=== PATIENT | female | born 1995 | race Caucasian/White ===

== ENCOUNTER 2021-05-30 11:41 | Outpatient (REF) | payer MEDICAID, SELFPAY ==
--- NOTE | ~2021-05-30 | XR_ITS ---
EXAMINATION: XR CHEST CLINICAL INFORMATION: Generalized hyperhidrosis. COMPARISON: None TECHNIQUE: 2 views of the chest were obtained. FINDINGS: No significant abnormality is noted involving the heart, lungs, mediastinum, bony thorax or soft tissues. XR/XR chest 2V IMPRESSION: No acute cardiopulmonary process.
== END 2021-05-30 11:42 | disposition home or self-care (01) ==
LOC: HO.XRAY 11:41
PROVIDERS: Absent Provider Registered Nurse Community Health; PCP Registered Nurse Community Health; Visit Provider Emergency Medicine
DX: R61 Generalized hyperhidrosis (principal)
CPT/HCPCS: 71046

== ENCOUNTER 2021-09-01 16:05 | Outpatient (REF) | payer MEDICAID, SELFPAY ==
--- NOTE | ~2021-09-01 | XR_ITS ---
EXAMINATION: XR CHEST CLINICAL INFORMATION: Cough COMPARISON: Previous chest x-ray May 2021 TECHNIQUE: 2 views of the chest were obtained. FINDINGS: No significant abnormality is noted involving the heart, lungs, mediastinum, bony thorax or soft tissues. XR/XR chest 2V IMPRESSION: Unremarkable examination.
== END 2021-09-01 16:06 | disposition home or self-care (01) ==
LOC: HO.XRAY 16:05
PROVIDERS: PCP Registered Nurse Community Health; Visit Provider Emergency Medicine
DX: R05.9 Cough, unspecified (principal)
CPT/HCPCS: 71046

== ENCOUNTER 2021-10-13 11:27 | Outpatient (REF) | payer MEDICAID, SELFPAY ==
[2021-10-14 09:42] LABS: BV Int Neg Control Negative (Negative); BV Int Pos Control Positive (Positive)
== END 2021-10-13 11:28 | disposition home or self-care (01) ==
LOC: HO.LAB 11:27
PROVIDERS: Visit Provider Advanced Practice Midwife
DX: Z01.411 Encounter for gynecological examination (general) (routine) with abnormal findings (principal); Z20.2 Contact with and (suspected) exposure to infections with a predominantly sexual mode of transmission; N91.2 Amenorrhea, unspecified; N89.8 Other specified noninflammatory disorders of vagina; Z79.3 Long term (current) use of hormonal contraceptives; Z87.42 Personal history of other diseases of the female genital tract
CPT/HCPCS: 87480; 87510; 87660; 88142

== ENCOUNTER 2021-11-07 14:37 | Outpatient (REF) | payer MEDICAID, SELFPAY ==
--- NOTE | ~2021-11-07 | US_ITS ---
EXAMINATION: US PELVIS CLINICAL INFORMATION: Amenorrhea. COMPARISON: None. TECHNIQUE: Ultrasound of the pelvis is performed using both transabdominal and transvaginal transducers along with Doppler. Transvaginal imaging is performed due to inadequate visualization transabdominally. FINDINGS: Uterus: The uterus is anteverted and measures 8.9 cm in length, 3.7 seen AP and 5.1 cm in transverse dimension. The double wall endometrial thickness is 0.4 cm. There is trace free fluid in the lower uterine segments/cervical canal. The uterus is smooth in contour and has normal myometrial echogenicity. No visible fibroid. Adnexa: Both ovaries are visualized. There is normal color flow to the adnexa. There is no ovarian torsion. There is no pelvic ascites or fluid collection. Right ovary measures 5.5 x 4.4 x 4.1 cm and volume 52.0 mL. There is anechoic cyst measuring 4.5 x 3.3 x 3.5 cm Left ovary measures 3.8 x 2.3 x 1.9 cm and volume 8.7 mL. US/US pelvic and transvaginal IMPRESSION: Simple cyst right ovary. Unremarkable left ovary. Trace fluid in the lower uterine segment/endocervical canal.
== END 2021-11-07 14:38 | disposition home or self-care (01) ==
LOC: HO.US 14:37
PROVIDERS: Visit Provider Advanced Practice Midwife
DX: N91.2 Amenorrhea, unspecified (principal); Z79.3 Long term (current) use of hormonal contraceptives; Z87.42 Personal history of other diseases of the female genital tract
CPT/HCPCS: 76830; 76856

== ENCOUNTER → 2021-12-22 13:27 | Outpatient (BNVA) | payer MEDICAID, SELFPAY | PROVIDERS: Visit Provider Advanced Practice Midwife | DX: Z13.89 Encounter for screening for other disorder (principal) ==

== ENCOUNTER 2022-11-28 16:22 | Outpatient (REF) | payer MEDICAID, SELFPAY ==
--- NOTE | ~2022-11-28 | XR_ITS ---
EXAMINATION: XR THORACIC SPINE CLINICAL INFORMATION: Reason for Exam CHRONIC LEFT SIDE THORACIC BACK PAIN COMPARISON: None TECHNIQUE: 3 views of the thoracic spine FINDINGS: Vertebral body heights are maintained. Alignment is maintained. Disc space heights are maintained. Paravertebral soft tissues are unremarkable. XR/XR thoracic spine 2V IMPRESSION: Disc space heights are maintained. .
== END 2022-11-28 16:23 | disposition home or self-care (01) ==
LOC: HO.XRAY 16:22
PROVIDERS: PCP Registered Nurse; Visit Provider Registered Nurse
DX: M54.6 Pain in thoracic spine (principal); G89.29 Other chronic pain
CPT/HCPCS: 72070

== ENCOUNTER → 2023-03-12 15:01 | Outpatient (REF) | payer MEDICAID, SELFPAY ==
--- NOTE | 2023-03-12 15:04 | CA_ITS ---
Transthoracic Echocardiogram Patient (Last, First, Middle): Jordyn Lara, Gender: Female Date of : 1995 Age: 27 Procedure Date: 03/12/2023 Procedure Type: Transthoracic Echocardiogram Location: OP Height: 162.56 cm Weight: 68.04 kg BSA: 1.73 m2 Heart Rate: bpm BP: 126 / 74 mmHg Rfid Systems Engineer: CHUCK Referring MD: Jaz Sams SOFT BOARDER Symptoms: I10 HTN Study Quality: Adequate ECG Rhythm: Sinus Conclusions: - The left ventricular systolic function is low normal. The visually estimated ejection fraction is between 50-55%. - No obvious valvular pathology seen on this study. - Recommend contrast study to assess apex/wall motion. Findings Left Ventricle Normal left ventricular cavity size. There is normal left ventricular wall thickness. The left ventricular systolic function is low normal. The visually estimated ejection fraction is between 50-55%. Diastolic function is normal for age. [place] not visualized well. Recommend contrast. Strain likely not accurate. Right Ventricle Normal right ventricular cavity size and systolic function. Atria Both atria are normal in size. Aortic Valve There is a normal trileaflet aortic valve. There is no aortic valve stenosis. There is no aortic valve regurgitation. Mitral Valve The mitral valve appears normal. There is no mitral valve regurgitation. There is no mitral valve stenosis. Pulmonic Valve The pulmonic valve is likely normal. Tricuspid Valve Normal tricuspid valve structure. There is trace tricuspid valve regurgitation. There is no evidence of pulmonary hypertension. Great Vessels The asc aorta is normal in size. Venous The inferior vena cava is normal in size and collapses greater than 50% with inspiration. Pericardium/Pleural There is no evidence of pericardial effusion. Prior Study Comparison No prior study available for comparison. Recommendations, Care & Conclusions No obvious valvular pathology seen on this study. Recommend contrast in the future to improve endocardial definition. Measurements 2D Linear Measurements IVSd: 0.70 0.6-0.9/0.6-1.0 cm LVIDd: 4.80 3.9-5.3/4.2-5.9 cm LVIDd Index: 2.77 2.4-3.2/2.2-3.1 cm/m2 LVIDs: 3.50 2.0-3.6 cm LVPWd: 0.80 0.7-1.1 cm LA Diam: 3.20 2.7-3.8/3.0-4.0 cm LAIDs Index: 1.85 1.5-2.3 cm/m2 LV Mass: 145.03 67-162/88-224 g LV Mass Index: 83.83 43-95/49-115 g/m2 LVOT Diam: 2.00 3.0+(-)1.3 cm 2D Systolic Function EF 4C: 63.50 >55% EF 2C: 60.00 >55% Mitral Valve MV Pk E: 0.61 MV PK A: 0.36 MV Decel Time: 333.00 E/A: 1.70 E'Lateral: 13.80 E'Medial: 8.38 E/E' Med: 7.30 E/E' Lat: 4.40 PHT: 98.00 MVA PHT: 2.24 Decel [place]: 1.84 Aortic Valve AoV Pk [place]: 1.23 AoV Mn [place]: 0.87 AoV VTI: 0.27 AoV Pk Grad: 6.00 Aov Mn Grad: 3.00 DARA Cont.VTI: 2.48 LVOT LVOT Pk [place]: 0.95 LVOT Mn [place]: 0.69 LVOT VTI: 0.22 LVOT Pk Grad: 4.00 LVOT Mn Grad: 2.00 LVOT Diam: 2.00 LVOT Area: 3.14 Diastolic Function MV Pk E: 0.61 MV Pk A: 0.36 E/A: 1.70 E'Medial: 8.38 E/E' Med: 7.30 E' Laterial: 13.80 E/E' Lat: 4.40 Right Ventricle TAPSE (mm): 21.60 TVS' [place]: 12.00 Tricuspid Valve TR Pk [place]: 2.00 TR Pk Grad: 16.00 RA Press: 3.00 RVSP: 19.00 Great Vessels Aorta Sinus of Valsalva: 3.40 2.0-3.[address] [place]: 2.00 1.7-3.4 cm Ao Asc: 2.60 2.1-3.4 cm Ao Arch: 2.40 Updated in Other Vendor System with Status of Final Martin Gonzalez MD electronically signed on 03/13/2023 10:40:18 AM with status of Final
== END ==
LOC: HO.CARD 15:01
PROVIDERS: PCP Registered Nurse; Visit Provider Registered Nurse
DX: I10 Essential (primary) hypertension (principal)
CPT/HCPCS: 93306

== ENCOUNTER → 2023-03-12 15:04 | Outpatient (BNV) | payer MEDICAID, SELFPAY | PROVIDERS: PCP Registered Nurse; Visit Provider Internal Medicine | DX: I10 Essential (primary) hypertension (principal) | CPT/HCPCS: 93306 ==

== ENCOUNTER → 2023-03-22 10:04 | Outpatient (REF) | payer MEDICAID, SELFPAY ==
--- NOTE | 2023-03-22 10:07 | CA_ITS ---
Transthoracic Echocardiogram Patient (Last, First, Middle): Jordyn Lara, Gender: Female Date of : 1995 Age: 27 Procedure Date: 03/22/2023 Procedure Type: Transthoracic Echocardiogram Location: OP Height: 162.56 cm Weight: 65.77 kg BSA: 1.71 m2 Heart Rate: bpm BP: 121 / 85 mmHg Capacitor Inspector: CHUCK Referring MD: Ken Ramires MD Symptoms: I10 HTN Study Quality: Adequate with contrast ECG Rhythm: Sinus Conclusions: - The left ventricular systolic function is low normal. The visually estimated ejection fraction is between 50-55%. Findings Left Ventricle Normal left ventricular cavity size. The left ventricular systolic function is low normal. The visually estimated ejection fraction is between 50-55%. There is no evidence of regional wall motion abnormalities. Prior Study Comparison No significant change compared to prior study dated: 03/12/2023. Measurements 2D Systolic Function EF 4C: 55.80 >55% EF 2C: 54.30 >55% EF BiP: 55.30 >55% Updated in Other Vendor System with Status of Final Martin Gonzalez MD electronically signed on 03/22/2023 11:11:55 AM with status of Final
== END ==
LOC: HO.CARD 10:04
PROVIDERS: PCP Registered Nurse; Visit Provider Emergency Medicine
DX: I10 Essential (primary) hypertension (principal)
CPT/HCPCS: 93308; Q9957

== ENCOUNTER → 2023-03-22 10:07 | Outpatient (BNV) | payer MEDICAID, SELFPAY | PROVIDERS: PCP Registered Nurse; Visit Provider Internal Medicine | DX: I10 Essential (primary) hypertension (principal) | CPT/HCPCS: 93308 ==

== ENCOUNTER 2023-03-28 10:33 | Outpatient (REF) | payer MEDICAID, SELFPAY ==
[2023-03-28 12:30] LABS: Alanine Aminotransferase 12 U/L (0-31); Alkaline Phosphatase 103 U/L (39-117); Anion Gap 9 (12-20); Aspartate Amino Transferase 41 U/L (5-31); Bilirubin Total 0.5 mg/dL (0.0-1.0); Blood Urea Nitrogen 7 mg/dL (9-16); Calcium 9.1 mg/dL (8.4-10.2); Carbon Dioxide 27 mmol/L (22-29); Chloride 106 mmol/L (96-108); Estimated Glomerular Filt Rate > 60; Glucose Random 65 mg/dL (60-115); Sodium 138 mmol/L (135-145); TSH reflex Free T4 0.65 uIU/mL (0.32-4.0); Total Protein 7.3 g/dL (6.5-8.0); Vitamin D 25-OH Total 68.7 ng/mL (>30)
== END 2023-03-28 10:34 | disposition home or self-care (01) ==
LOC: HO.HHCL 10:33
PROVIDERS: Visit Provider Registered Nurse
DX: I10 Essential (primary) hypertension (principal)
CPT/HCPCS: 36415; 80053; 82306; 84443

== ENCOUNTER 2023-04-03 11:51 | Outpatient (REF) | payer MEDICAID, SELFPAY ==
[2023-04-04 10:46] LABS: BV Int Neg Control Negative (Negative); BV Int Pos Control Positive (Positive)
== END 2023-04-03 11:52 | disposition home or self-care (01) ==
LOC: HO.CHCLNP 11:51
PROVIDERS: Visit Provider Advanced Practice Midwife
DX: N89.8 Other specified noninflammatory disorders of vagina (principal)
CPT/HCPCS: 87480; 87510; 87660

== ENCOUNTER 2023-04-10 10:16 | Outpatient (REF) | payer MEDICAID, SELFPAY ==
[2023-04-10 12:22] LABS: Alanine Aminotransferase 12 U/L (0-31); Albumin Level 4.1 g/dL (3.5-5.0); Alkaline Phosphatase 83 U/L (39-117); Aspartate Amino Transferase 45 U/L (5-31); Bilirubin Direct 0.3 mg/dL (0.0-0.5); Bilirubin Total 0.6 mg/dL (0.0-1.0); Total Protein 7.3 g/dL (6.5-8.0)
[2023-04-11 07:59] LABS: HBS Num1 9.37 mIU/mL (0-7.99); HBc Num1 0.15 S/CO (0.00-0.79); HBsAGNum1 0.41 S/CO (0.00-0.99); Hepatitis B Core Antibody Nonreactive (Nonreactive); Hepatitis B Surface Antigen Negative (Negative); ~HepC Num1 0.06 S/CO (0.00-0.79); ~Hepatitis A Antibody IgM Nonreactive (Nonreactive); ~Hepatitis C Antibody Nonreactive (Nonreactive)
[2023-04-11 09:25] LABS: HBS Num2 9.49 mIU/mL (0-7.99); HBS Num3 9.12 mIU/mL (0-7.99); ~Hepatitis B Surface Antibody GRAYZONE (Nonreactive)
== END 2023-04-10 10:17 | disposition home or self-care (01) ==
LOC: HO.HHCL 10:16
PROVIDERS: Visit Provider Registered Nurse
DX: R74.8 Abnormal levels of other serum enzymes (principal)
CPT/HCPCS: 36415; 80076; 82105; 86704; 86706; 86709; 86803; 87340

== ENCOUNTER 2023-04-20 10:18 | Outpatient (REF) | payer MEDICAID, SELFPAY ==
--- NOTE | ~2023-04-20 | US_ITS ---
EXAMINATION: US ABDOMEN COMPLETE CLINICAL INFORMATION: Elevated liver function tests. COMPARISON: None available. TECHNIQUE: Real-time imaging of the abdominal viscera. FINDINGS: PANCREAS: Normal. ABDOMINAL AORTA: The proximal, mid, and distal segments are normal in caliber. INFERIOR VENA CAVA: Visualized portions are normal. LIVER: Normal. The liver is normal in size. The liver contour is normal. Parenchymal echogenicity is normal. No focal hepatic lesion. There is no intrahepatic biliary duct dilatation seen. GALLBLADDER: Normal. The gallbladder is physiologically distended without evidence of stones, sludge, polyps, wall thickening or pericholecystic fluid. COMMON BILE DUCT: Normal in caliber measuring 0.3 cm in diameter. RIGHT KIDNEY: Normal. No hydronephrosis. No renal calculi or focal parenchymal lesions. The kidney measures 9.9 cm in maximum dimension. LEFT KIDNEY: Normal. No hydronephrosis. No renal calculi or focal parenchymal lesions. The kidney measures 9.0 cm in maximum dimension. SPLEEN: Normal. The spleen measures 8.8 cm in maximum dimension. FREE FLUID: None. US/US abdomen complete IMPRESSION: Unremarkable examination.
== END 2023-04-20 10:19 | disposition home or self-care (01) ==
LOC: HO.US 10:18
PROVIDERS: PCP Registered Nurse; Visit Provider Registered Nurse
DX: R74.8 Abnormal levels of other serum enzymes (principal)
CPT/HCPCS: 76700

== ENCOUNTER 2023-06-19 12:04 | Outpatient (REF) | payer MEDICAID, SELFPAY ==
[2023-06-19 14:24] LABS: Alanine Aminotransferase 11 U/L (0-31); Albumin Level 3.9 g/dL (3.5-5.0); Alkaline Phosphatase 80 U/L (39-117); Aspartate Amino Transferase 40 U/L (5-31); Bilirubin Direct 0.1 mg/dL (0.0-0.5); Bilirubin Total 0.4 mg/dL (0.0-1.0); Total Protein 6.9 g/dL (6.5-8.0)
[2023-06-19 14:42] LABS: Gamma Glutamyl Transpeptidase 11 U/L (7-33)
[2023-06-19 14:47] LABS: Ferritin 38 ng/mL (10-122)
[2023-06-20 04:10] LABS: HIV AB/AG Nonreactive (Nonreactive); HIV Num 1 0.05 S/CO (0.00-0.99)
[2023-06-21 12:52] LABS: Ceruloplasmin 27 mg/dL (18-53)
[2023-06-21 18:44] LABS: Transglutaminase Ab IgG <1.0 U/mL; Transglutaminase IgA <1.0 U/mL
[2023-06-24 10:38] LABS: Anti Nuclear Antibody Screen NEGATIVE (NEGATIVE)
[2023-06-25 11:20] LABS: Smooth Muscle Antibody <20 U (<20)
[2023-06-25 13:53] LABS: Mitochondrial Antibodies NEGATIVE (NEGATIVE)
[2023-06-26 08:53] LABS: Phosphatidylethanol 16:0-18:1 NEGATIVE; Phosphatidylethanol 16:0-18:2 NEGATIVE
== END 2023-06-19 12:05 | disposition home or self-care (01) ==
LOC: HO.LAB 12:04
PROVIDERS: PCP Registered Nurse; Visit Provider Nurse Practitioner
DX: R74.01 Elevation of levels of liver transaminase levels (principal)
CPT/HCPCS: 36415; 80076; 80321; 82390; 82728; 82977; 86015; 86038; 86364; 86381; 87389; 99212

== ENCOUNTER 2023-06-19 12:04 | Outpatient (AMB) | payer MEDICAID, SELFPAY ==
--- NOTE | 2023-06-19 12:08 | A.OFFVIS_ITS ---
Intake Vital Signs 06/19/23 12:11 Height 5 ft 4 in Weight 145 lb 15.136 oz BMI 25.0 BP 140/70 H Blood Pressure Location Rt brachial Position Sitting Pulse 80 Pulse Source Pulse Oximeter Intake Visit Reasons: Elevated LFTs Intake Note: Pt presents to the office today for elevated LFTs. Pt states she is feeling well. Pt states she still feels like she still has some stomach issues. Pt states that 1 or 2 drinks will upset her stomach. Pt denies any vomiting but states she does get nauseous and has diarrhea occasionally. Allergies No Known Allergies Allergy (Verified 06/19/23 12:13) HPI Elevated LFTs HPI Details 27-year-old female here for initial eval uation of elevated LFTs. She is referred by[facility]UDS[facility]ir[facility] of [facility]. PMX Hypertension Anxiety disorder Depression * SURGICAL HISTORY [place] teeth * ALLERGIES:NKDA * [employer] LABS: Laboratory Tests 03/28/23 03/28/23 04/10/23 10:38 10:38 10:19 Estimated GFR > 60 Total Bilirubin 0.6 Direct Bilirubin 0.3 AST 45 H ALT 12 Alkaline Phosphata se 83 Alpha Fetoprotein 2.0 TSH 0.65 Laboratory Tests 04/10/23 10:19 Hepatitis A IgM Ab Nonreactive Hep Bs Antigen Negative Hep Bs Antibody GRAYZONE Hep B Core Total A b Nonreactive Hepatitis C Ab (EI A) Nonreactive ULTRASOUND THE ABDOMEN 04/24/23 FINDINGS: PANCREAS: Normal. ABDOMINAL AORTA: The proximal, mid, and distal segments are normal in caliber. INFERIOR VENA CAVA: Visualized portions are normal. LIVER: Normal. The liver is normal in size. The liver contour is normal. Parenchymal echogenicity is normal. No focal hepatic lesion. There is no intrahepatic biliary duct dilatation seen. GALLBLADDER: Normal. The gallbladder is physiologically distended without evidence of stones, sludge, polyps, wall thickening or pericholecystic fluid. COMMON BILE DUCT: Normal in caliber measuring 0.3 cm in diameter. RIGHT KIDNEY: Normal. No hydronephrosis. No renal calculi or focal parenchymal lesions. The kidney measures 9.9 cm in maximum dimension. LEFT KIDNEY: Normal. No hydronephrosis. No renal calculi or focal parenchymal lesions. The kidney measures 9.0 cm in maximum dimension. SPLEEN: Normal. The spleen measures 8.8 cm in maximum dimension. FREE FLUID: None. US/US abdomen complete IMPRESSION: Unremarkable examination. TODAY'S VISIT She received partial Hep B vaccine at [facility] but never completed it. NO signs/sx of liver disease. She only drinks very occasionally. She only takes vitamins Vit D, zinc and iron. She takes Excedrin and tylenol for migraines. She does not take any to excess. No FHX of liver disease. She has been gaining weight recently. She had lost 20lbs in 05/2021 r/t anxiety causing nausea. She started drinking protein shakes and she has been gaining weight, but she also goes to the gym alot and she does not feel it is fat. HTN is in both parents, OA fo knees. The family is generally long lived. ROV 6 weeks. [facility] Social History (Updated 06/19/23 @ 12:14 by Yulissa Real MA) Household Members: Friend(s) Housing: Apartment Alcohol intake: current Alcohol intake frequency: holidays/special occasions only Patient Tobacco Use Status: Never used Tobacco Substance Use Type: Marijuana Gender identity: Female Female Reproductive History Menstrual Age of Menarche: 13 Review of Systems Const Denies fatigue, Denies fever(s), Denies night sweats, Denies poor appetite and Denies weight loss Eyes Details: glasses Reports requires corrective lenses ENT Reports Normal hearing present, Denies dental pain, Denies dysphagia, Denies hearing loss, Denies mouth pain, Denies odynophagia, Denies throat swelling, Denies tongue swelling and Reports other (Dentition adequate) Card Reports no additional complaints Resp Reports no additional complaints GI Denies abdominal pain, Denies melena, Denies bloating, Denies hematochezia, Denies constipation, Denies GI cramping, Denies dysphagia, Denies excessive flatus, Denies early satiety, Denies heartburn, Denies diarrhea, Denies nausea, Denies odynophagia, Denies vomiting and Denies hematemesis Skin/Breast Denies pruritus, Denies lesions, Denies rash and Denies jaundice Neuro Reports Normal hearing present and Denies Abnormal speech present Endo Denies fatigue Aller/Immun Denies throat swelling and Denies tongue swelling Physical Exam Vital Signs: Last Vital Signs Pulse 80 06/19/23 12:11 BP 140/70 H 06/19/23 12:11 BMI result Body Mass Index 25.0 Const General: cooperative, no acute distress, well developed and well groomed Nutritional Appearance: average body habitus and well nourished Orientation/consciousness: oriented to person, oriented to place and oriented to time Limitations: No language barrier HEENT Head: Yes normocephalic and Yes atraumatic Eyes General: appearance normal, both eyes and all related structures Pupils: Equal, round and reactive pupils present Neck Neck: Yes normal visual inspection and Yes no lymphadenopathy Thyroid: Thyroid normal Resp Effort & Inspection: normal respiratory effort and able to speak in complete sentences Auscultation: clear to auscultation bilaterally Cardio Rate: regular rate Rhythm: regular rhythm Heart sounds: Normal, physiologic split S2 sound present Peripheral pulses: radial pulses present and posterior tibial pulses present GI Inspection: No distended and No Abdominal panniculus present Palpation (GI): Soft to palpation, nontender, no guarding, not rigid and No hepatosplenomegaly present Percussion: Yes normal to percussion Auscultation: normal bowel sounds Rectal Exam - Female: deferred Skin General skin exam: no rashes or lesions noted, turgor normal, skin not dry, no jaundice, No spider nevi and no striae Rashes: no rashes Nails: normal Neuro General: oriented to person, oriented to place and oriented to time Cranial nerves: Yes Equal, round and reactive pupils present and Yes Normal hearing present Speech: No Abnormal speech present Extrem General: Yes normal to inspection, No clubbing, No cyanosis and No edema Psych Appearance: grossly normal and well kempt Mental Status: mental status grossly normal Speech and movement: Normal speech and movement present Affect: normal affect Attitude: cooperative Thought process: Normal thought process present and not confabulating Thought content: Normal thought content present Insight: Fair insight present (Psych) Judgement: Fair judgement present (Psych) Results Reviewed Results Reviewed: Laboratory Tests 03/28/23 03/28/23 04/10/23 10:38 10:38 10:19 Estimated GFR > 60 Total Bilirubin 0.6 Direct Bilirubin 0.3 AST 45 H ALT 12 Alkaline Phosphatase 83 Alpha Fetoprotein 2.0 TSH 0.65 Laboratory Tests 04/10/23 10:19 Hepatitis A IgM Ab Nonreactive Hep Bs Antigen Negative Hep Bs Antibody GRAYZONE Hep B Core Total Ab Nonreactive Hepatitis C Ab (EIA) Nonreactive ULTRASOUND THE ABDOMEN 04/24/23 FINDINGS: PANCREAS: Normal. ABDOMINAL AORTA: The proximal, mid, and distal segments are normal in caliber. INFERIOR VENA CAVA: Visualized portions are normal. LIVER: Normal. The liver is normal in size. The liver contour is normal. Parenchymal echogenicity is normal. No focal hepatic lesion. There is no intrahepatic biliary duct dilatation seen. GALLBLADDER: Normal. The gallbladder is physiologically distended without evidence of stones, sludge, polyps, wall thickening or pericholecystic fluid. COMMON BILE DUCT: Normal in caliber measuring 0.3 cm in diameter. RIGHT KIDNEY: Normal. No hydronephrosis. No renal calculi or focal parenchymal lesions. The kidney measures 9.9 cm in maximum dimension. LEFT KIDNEY: Normal. No hydronephrosis. No renal calculi or focal parenchymal lesions. The kidney measures 9.0 cm in maximum dimension. SPLEEN: Normal. The spleen measures 8.8 cm in maximum dimension. FREE FLUID: None. US/US abdomen complete IMPRESSION: Unremarkable examination. Assessment & Plan Assessment & Plan (1) Elevated liver transaminase level: Comment: BASELINE LABS 03/28/23 Estimated GFR > 60 Total Bilirubin 0.6 Direct Bilirubin 0.3 AST 45 H ALT 12 Alkaline Phosphatase 83 Alpha Fetoprotein 2.0 Hepatitis A IgM Ab Nonreactive Hep Bs Antigen Negative Hep Bs Antibody GRAYZONE Hep B Core Total Ab Nonreactive Hepatitis C Ab (EIA) Nonreactive CURRENT LABS ULTRASOUND THE ABDOMEN 04/24/23 FINDINGS: PANCREAS: Normal. ABDOMINAL AORTA: The proximal, mid, and distal segments are normal in caliber. INFERIOR VENA CAVA: Visualized portions are normal. LIVER: Normal. The liver is normal in size. The liver contour is normal. Parenchymal echogenicity is normal. No focal hepatic lesion. There is no intrahepatic biliary duct dilatation seen. GALLBLADDER: Normal. The gallbladder is physiologically distended without evidence of stones, sludge, polyps, wall thickening or pericholecystic fluid. COMMON BILE DUCT: Normal in caliber measuring 0.3 cm in diameter. RIGHT KIDNEY: Normal. No hydronephrosis. No renal calculi or focal parenchymal lesions. The kidney measures 9.9 cm in maximum dimension. LEFT KIDNEY: Normal. No hydronephrosis. No renal calculi or focal parenchymal lesions. The kidney measures 9.0 cm in maximum dimension. SPLEEN: Normal. The spleen measures 8.8 cm in maximum dimension. FREE FLUID: None. US/US abdomen complete IMPRESSION: Unremarkable examination Code(s): R74.01 - Elevation of levels of liver transaminase levels Plan: She received partial Hep B vaccine at [facility] but never completed it. NO signs/sx of liver disease. She only drinks very occasionally. She only takes vitamins Vit D, zinc and iron. She takes Excedrin and tylenol for migraines. She does not take any to excess. No FHX of liver disease. She has been gaining weight recently. She had lost 20lbs in 05/2021 r/t anxiety causing nausea. She started drinking protein shakes and she has been gaining weight, but she also goes to the gym alot and she does not feel it is fat. HTN is in both parents, OA fo knees. The family is generally long lived. ROV 6 weeks. Orders: Orders Gamma Glutamyl Transpeptidase 06/19/23 R74.01 - Elevation of levels of liver transaminase levels Mitochondrial Antibody 06/19/23 R74.01 - Elevation of levels of liver transaminase levels MALU Reflex Titer and Pattern 06/19/23 R74.01 - Elevation of levels of liver transaminase levels Transglutaminase Ab IgG 06/19/23 R74.01 - Elevation of levels of liver transaminase levels HIV Ab/Ag 06/19/23 R74.01 - Elevation of levels of liver transaminase levels Ferritin 06/19/23 R74.01 - Elevation of levels of liver transaminase levels Phosphatidylethanol, Blood 06/19/23 R74.01 - Elevation of levels of liver transaminase levels Smooth Muscle Antibody 06/19/23 R74.01 - Elevation of levels of liver transaminase levels Transglutaminase IgA 06/19/23 R74.01 - Elevation of levels of liver transaminase levels Ceruloplasmin 06/19/23 R74.01 - Elevation of levels of liver transaminase levels Liver Panel 06/19/23 R74.01 - Elevation of levels of liver transaminase levels Coding Level of Care Code New Pt Level 3 (07032) Diagnoses Elevated liver transaminase level R74.
[2023-06-19 12:11] VITALS: BP 140/70; PULSE 80; BMI 25.0
== END 2023-06-19 13:06 | disposition home or self-care (01) ==
PROVIDERS: PCP Registered Nurse; Visit Provider Nurse Practitioner
DX: R74.01 Elevation of levels of liver transaminase levels (principal)
CPT/HCPCS: 99203

== ENCOUNTER 2023-07-31 12:37 | Outpatient (AMB) | payer MEDICAID, SELFPAY ==
--- NOTE | 2023-07-31 12:41 | MHC.OFFVIS ---
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 ABDOMINAL AORTA: The proximal, mid, and distal segments are normal in caliber. INFERIOR VENA CAVA: Visualized portions are normal. LIVER: Normal. The liver is normal in size. The liver contour is normal. Parenchymal echogenicity is normal. No focal hepatic lesion. There is no intrahepatic biliary duct dilatation seen. GALLBLADDER: Normal. The gallbladder is physiologically distended without evidence of stones, sludge, polyps, wall thickening or pericholecystic fluid. COMMON BILE DUCT: Normal in caliber measuring 0.3 cm in diameter. RIGHT KIDNEY: Normal. No hydronephrosis. No renal calculi or focal parenchymal lesions. The kidney measures 9.9 cm in maximum dimension. LEFT KIDNEY: Normal. No hydronephrosis. No renal calculi or focal parenchymal lesions. The kidney measures 9.0 cm in maximum dimension. SPLEEN: Normal. The spleen measures 8.8 cm in maximum dimension. FREE FLUID: None. US/US abdomen complete IMPRESSION: Unremarkable examination Code(s): R74.01 - Elevation of levels of liver transaminase levels Plan: She received partial Hep B vaccine at [facility] but never completed it. NO signs/sx of liver disease. She only drinks very occasionally. She only takes vitamins Vit D, zinc and iron. She takes Excedrin and tylenol for migraines. She does not take any to excess. No FHX of liver disease. She has been gaining weight recently. She had lost 20lbs in 05/2021 r/t anxiety causing nausea. She started drinking protein shakes and she has been gaining weight, but she also goes to the gym alot and she does not feel it is fat. HTN is in both parents, OA fo knees. The family is generally long lived. ROV 6 weeks. Orders: Orders Gamma Glutamyl Tra nspeptidase 06/19/23 R74.01 - Elevation of levels of live r transaminase lev els Mitochondrial Anti body 06/19/23 R74.01 - Elevation of levels of live r transaminase lev els MALU Reflex Titer a nd Pattern 06/19/23 R74.01 - Elevation of levels of live r transaminase lev els Transglutaminase A b IgG 06/19/23 R74.01 - Elevation of levels of live r transaminase lev els HIV Ab/Ag 06/19/23 R74.01 - Elevation of levels of live r transaminase lev els Ferritin 06/19/23 R74.01 - Elevation of levels of live r transaminase lev els Phosphatidylethano l, Blood 06/19/23 R74.01 - Elevation of levels of live r transaminase lev els Smooth Muscle Anti body 06/19/23 R74.01 - Elevation of levels of live r transaminase lev els Transglutaminase I gA 06/19/23 R74.01 - Elevation of levels of live r transaminase lev els Ceruloplasmin 06/19/23 R74.01 - Elevation of levels of live r transaminase lev els Liver Panel 06/19/23 R74.01 - Elevation of levels of live r transaminase lev els Labs: Laboratory Tests 06/19/23 13:36 Ferritin 38 Total Bilirubin 0.4 Direct Bilirubin 0.1 GGT 11 AST 40 H ALT 11 Alkaline Phosphata se 80 Ceruloplasmin 27 MALU Screen NEGATIVE Anti-Mitochondrial Ab NEGATIVE Anti-Smooth Muscle Ab <20 Tiss Transglutamin IgG <1.0 Tiss Transglutamin IgA <1.0 PEth 16:0/18.1 (PO PEth) NEGATIVE PEth 16:0/18.2 (PL PEth) NEGATIVE HIV 1&2 Ab/P24 Ag 4thGn Nonreactive TODAY'S VISIT She continues to have no signs or symptoms of liver disease. All of her testing seems to indicate that there is not any inflammation a problem with the liver including the GGT she certainly does not have autoimmune liver disease, she does not have iron overload, she does not drink alcohol, the only possible driving factor could be Tylenol use. I do educate her that it is not just about taking more than 8 Tylenol in a day but taking more than 2 Tylenol in any 6 [address] sometimes can drive AST elevations. It is also entirely possible that she simply runs higher than other people on the aguilar curve. The only other complaint she has is polyuria polydipsia and that her feet swell when she stands for long periods of time. She wants to know if she has been tested for diabetes. A random glucose on her latest Chem panel was quite normal at 67 but I defer this question to her primary care provider since polyuria polydipsia can be a symptom for great many things and would require a larger workup then I can provide as specialty clinician. However, diabetes does not seem likely in the differential diagnosis at this time. Return office visit in 6 months and at that time will repeat her liver enzymes and see how she is trending. [facility] Social History Household Members: Friend(s) Housing: Apartment Alcohol intake: current Alcohol intake frequency: holidays/special occasions only Patient Tobacco Use Status: Never used Tobacco Substance Use Type: Marijuana Gender identity: Female Female Reproductive History Menstrual Age of Menarche: 13 Review of Systems Const Denies fatigue, Denies fever(s), Denies night sweats, Denies poor appetite and Denies weight loss Eyes Details: glasses ENT Reports Normal hearing present, Denies dental pain, Denies dysphagia, Denies hearing loss, Denies mouth pain, Denies odynophagia, Denies throat swelling, Denies tongue swelling and Reports other (Dentition adequate) Card Reports no additional complaints Resp Reports no additional complaints GI Denies abdominal pain, Denies melena, Denies bloating, Denies hematochezia, Denies constipation, Denies GI cramping, Denies dysphagia, Denies excessive flatus, Denies early satiety, Denies heartburn, Denies diarrhea, Denies nausea, Denies odynophagia, Denies vomiting and Denies hematemesis Skin/Breast Denies pruritus, Denies lesions, Denies rash and Denies jaundice Neuro Reports Normal hearing present and Denies Abnormal speech present Endo Denies fatigue Aller/Immun Denies throat swelling and Denies tongue swelling Physical Exam Vital Signs: Last Vital Signs Pulse 52 07/31/23 12:42 BP 121/65 07/31/23 12:42 BMI result Body Mass Index 25.7 Const General: cooperative, no acute distress, well developed and well groomed Nutritional Appearance: average body habitus and well nourished Orientation/consciousness: oriented to person, oriented to place and oriented to time Limitations: language barrier HEENT Head: Yes normocephalic and Yes atraumatic Eyes General: appearance normal, both eyes and all related structures Pupils: Equal, round and reactive pupils present Neck Neck: Yes normal visual inspection and Yes no lymphadenopathy Thyroid: Thyroid normal Resp Effort & Inspection: normal respiratory effort and able to speak in complete sentences Auscultation: clear to auscultation bilaterally Cardio Rate: regular rate Rhythm: regular rhythm Heart sounds: Normal, physiologic split S2 sound present Peripheral pulses: radial pulses present and posterior tibial pulses present GI Inspection: No distended and No Abdominal panniculus present Palpation (GI): Soft to palpation, nontender, no guarding, not rigid and No hepatosplenomegaly present Percussion: Yes normal to percussion Auscultation: normal bowel sounds Rectal Exam - Female: deferred Skin General skin exam: no rashes or lesions noted, turgor normal, skin not dry, no jaundice, No spider nevi and no striae Rashes: no rashes Nails: normal Neuro General: oriented to person, oriented to place and oriented to time Cranial nerves: Yes Equal, round and reactive pupils present and Yes Normal hearing present Speech: No Abnormal speech present Extrem General: Yes normal to inspection, No clubbing, No cyanosis and No edema Psych Appearance: grossly normal and well kempt Mental Status: mental status grossly normal Speech and movement: Normal speech and movement present Affect: normal affect Attitude: cooperative Thought process: Normal thought process present and not confabulating Thought content: Normal thought content present Insight: Fair insight present (Psych) Judgement: Fair judgement present (Psych) Assessment & Plan Assessment & Plan (1) Elevated liver transaminase level: Comment: BASELINE LABS 03/28/23 Estimated GFR > 60 Total Bilirubin 0.6 Direct Bilirubin 0.3 AST 45 H ALT 12 Alkaline Phosphatase 83 Alpha Fetoprotein 2.0 Hepatitis A IgM Ab Nonreactive Hep Bs Antigen Negative Hep Bs Antibody GRAYZONE Hep B Core Total Ab Nonreactive Hepatitis C Ab (EIA) Nonreactive Ferritin 38 Ceruloplasmin 27 MALU Screen NEGATIVE Anti-Mitochondrial Ab NEGATIVE Anti-Smooth Muscle Ab <20 Tiss Transglutamin IgG <1.0 Tiss Transglutamin IgA <1.0 PEth 16:0/18.1 (POPEth) NEGATIVE PEth 16:0/18.2 (PLPEth) NEGATIVE HIV 1&2 Ab/P24 Ag 4thGn Nonreactive CURRENT LABS 06/19/23 13:36 Ferritin 38 Total Bilirubin 0.4 Direct Bilirubin 0.1 GGT 11 AST 40 H ALT 11 Alkaline Phosphatase 80 Ceruloplasmin 27 MALU Screen NEGATIVE Anti-Mitochondrial Ab NEGATIVE Anti-Smooth Muscle Ab <20 Tiss Transglutamin IgG <1.0 Tiss Transglutamin IgA <1.0 PEth 16:0/18.1 (POPEth) NEGATIVE PEth 16:0/18.2 (PLPEth) NEGATIVE HIV 1&2 Ab/P24 Ag 4thGn Nonreactive Laboratory Tests 06/19/23 13:36 Ferritin 38 Total Bilirubin 0.4 Direct Bilirubin 0.1 GGT 11 AST 40 H ALT 11 Alkaline Phosphatase 80 Ceruloplasmin 27 MALU Screen NEGATIVE Anti-Mitochondrial Ab NEGATIVE Anti-Smooth Muscle Ab <20 Tiss Transglutamin IgG <1.0 Tiss Transglutamin IgA <1.0 PEth 16:0/18.1 (POPEth) NEGATIVE PEth 16:0/18.2 (PLPEth) NEGATIVE HIV 1&2 Ab/P24 Ag 4thGn Nonreactive ULTRASOUND THE ABDOMEN 04/24/23 FINDINGS: PANCREAS: Normal. ABDOMINAL AORTA: The proximal, mid, and distal segments are normal in caliber. INFERIOR VENA CAVA: Visualized portions are normal. LIVER: Normal. The liver is normal in size. The liver contour is normal. Parenchymal echogenicity is normal. No focal hepatic lesion. There is no intrahepatic biliary duct dilatation seen. GALLBLADDER: Normal. The gallbladder is physiologically distended without evidence of stones, sludge, polyps, wall thickening or pericholecystic fluid. COMMON BILE DUCT: Normal in caliber measuring 0.3 cm in diameter. RIGHT KIDNEY: Normal. No hydronephrosis. No renal calculi or focal parenchymal lesions. The kidney measures 9.9 cm in maximum dimension. LEFT KIDNEY: Normal. No hydronephrosis. No renal calculi or focal parenchymal lesions. The kidney measures 9.0 cm in maximum dimension. SPLEEN: Normal. The spleen measures 8.8 cm in maximum dimension. FREE FLUID: None. US/US abdomen complete IMPRESSION: Unremarkable examination Code(s): R74.01 - Elevation of levels of liver transaminase levels Plan She continues to have no signs or symptoms of liver disease. All of her testing seems to indicate that there is not any inflammation a problem with the liver including the GGT she certainly does not have autoimmune liver disease, she does not have iron overload, she does not drink alcohol, the only possible driving factor could be Tylenol use. I do educate her that it is not just about taking more than 8 Tylenol in a day but taking more than 2 Tylenol in any 6 hour[address] That sometimes can drive AST elevations. It is also entirely possible that she simply runs higher than other people on the aguilar curve. The only other complaint she has is polyuria polydipsia and that her feet swell when she stands for long periods of time. She wants to know if she has been tested for diabetes. A random glucose on her latest Chem panel was quite normal at 67 but I defer this question to her primary care provider since polyuria polydipsia can be a symptom for great many things and would require a larger workup then I can provide as specialty clinician. However, diabetes does not seem likely in the differential diagnosis at this time. Return office visit in 6 months and at that time will repeat her liver enzymes and see how she is trending. Coding Level of Care Code Est Pt Level 3 (57335) Diagnoses Elevated liver transaminase level R74.01
[2023-07-31 12:42] VITALS: BP 121/65; PULSE 52; BMI 25.7
== END 2023-07-31 13:18 | disposition home or self-care (01) ==
PROVIDERS: PCP Registered Nurse; Visit Provider Nurse Practitioner
DX: R74.01 Elevation of levels of liver transaminase levels (principal)
CPT/HCPCS: 99213

== ENCOUNTER → 2023-07-31 12:37 | Outpatient (BNVA) | payer MEDICAID, SELFPAY | PROVIDERS: PCP Registered Nurse; Visit Provider Nurse Practitioner | DX: R74.01 Elevation of levels of liver transaminase levels (principal) | CPT/HCPCS: 99212 ==

== ENCOUNTER 2023-11-05 10:05 | Outpatient (REF) | payer MEDICAID, SELFPAY ==
[2023-11-05 12:53] LABS: TSH reflex Free T4 0.73 uIU/mL (0.32-4.0)
[2023-11-06 11:56] LABS: BV Int Neg Control Negative (Negative); BV Int Pos Control Positive (Positive)
== END 2023-11-05 10:06 | disposition home or self-care (01) ==
LOC: HO.HHCL 10:05
PROVIDERS: Visit Provider Advanced Practice Midwife
DX: Z01.419 Encounter for gynecological examination (general) (routine) without abnormal findings (principal); N93.9 Abnormal uterine and vaginal bleeding, unspecified; N89.8 Other specified noninflammatory disorders of vagina
CPT/HCPCS: 36415; 84443; 87480; 87510; 87660; 88142

== ENCOUNTER 2023-11-23 11:36 | Outpatient (REF) | payer MEDICAID, SELFPAY ==
--- NOTE | ~2023-11-23 | US_ITS ---
EXAMINATION: US PELVIS CLINICAL INFORMATION: 28-year-old female with history of AUB. LMP approximately one month ago.. COMPARISON: Pelvic ultrasound from 11/07/2021. TECHNIQUE: Ultrasound of the pelvis is performed using both transabdominal and transvaginal transducers along with Doppler. Transvaginal imaging is performed due to inadequate visualization transabdominally. FINDINGS: Uterus: The anteflexed, anteverted uterus measures 8.3 x 3.5 x 4.1 cm (cervix to fundus x AP x transverse dimensions). The myometrial echotexture is normal. The cervix is approximately 3 cm in length. 0.6 cm nabothian cyst of the cervix. The endometrium has normal echotexture and measures up to 1 cm AP. No endometrial polyp or fluid. Adnexa: The ovaries are in the normal size range for the patient age and they both contain normal-sized follicles. The right ovary is 3.2 x 2.5 x 2.6 cm and left ovary 4.7 x 2.8 x 2 cm. No evidence of ovarian mass or torsion. Small physiologic amount of simple appearing free fluid is present in the posterior cul-de-sac. US/US pelvic and transvaginal IMPRESSION: * The uterus and ovaries are sonographically normal. * Small amount of simple appearing free fluid is present in the pelvic cul-de-sac.
== END 2023-11-23 11:37 | disposition home or self-care (01) ==
LOC: HO.US 11:36
PROVIDERS: PCP Registered Nurse; Visit Provider Advanced Practice Midwife
DX: N93.9 Abnormal uterine and vaginal bleeding, unspecified (principal)
CPT/HCPCS: 76830; 76856

== ENCOUNTER 2023-12-11 13:31 | Outpatient (REF) | payer MEDICAID, SELFPAY ==
[2023-12-12 10:09] LABS: RPR Rapid Plasma Reagin NON-REACTIVE (NON-REACTIVE)
[2023-12-12 18:33] LABS: C. trachomatis RNA TMA NOT DETECTED (NOT DETECTED); Candida glabrata RNA NOT DETECTED (NOT DETECTED); Candida species RNA DETECTED (NOT DETECTED); N. gonorrhoeae RNA TMA NOT DETECTED (NOT DETECTED); Trichomonas vaginalis RNA NOT DETECTED (NOT DETECTED)
[2023-12-15 05:39] LABS: HIV RNA PCR Qn Copies Not Detected Copies/mL; HIV RNA PCR Qn Log Copies Not Detected Log cps/mL
== END 2023-12-11 13:32 | disposition home or self-care (01) ==
LOC: HO.HHCL 13:31
PROVIDERS: Visit Provider Nurse Practitioner Family
DX: B37.9 Candidiasis, unspecified (principal); Z11.3 Encounter for screening for infections with a predominantly sexual mode of transmission
CPT/HCPCS: 36415; 81513; 86592; 87481; 87491; 87536; 87591; 87661; 87900

== ENCOUNTER 2023-12-13 17:37 | Outpatient (REF) | payer MEDICAID, SELFPAY ==
[2023-12-14 12:33] LABS: C. trachomatis RNA TMA NOT DETECTED (NOT DETECTED); Candida glabrata RNA NOT DETECTED (NOT DETECTED); Candida species RNA NOT DETECTED (NOT DETECTED); N. gonorrhoeae RNA TMA NOT DETECTED (NOT DETECTED); Trichomonas vaginalis RNA NOT DETECTED (NOT DETECTED)
== END 2023-12-13 17:38 | disposition home or self-care (01) ==
LOC: HO.HHCLNP 17:37
PROVIDERS: Visit Provider Student in an Organized Health Care Education/Training Program
DX: B37.9 Candidiasis, unspecified (principal)
CPT/HCPCS: 36415; 81513; 87481; 87491; 87591; 87661

== ENCOUNTER 2024-01-01 19:30 | Outpatient (REF) | payer MEDICAID, SELFPAY ==
[2024-01-02 09:18] LABS: CT PCR NOT DETECTED (Not Detect.); NG PCR NOT DETECTED (Not Detect.)
[2024-01-02 09:20] LABS: Bacterial Vaginosis PCR POSITIVE (Negative); Candida Group PCR DETECTED (Not Detect); Candida glab krusei PCR NOT DETECTED (Not Detect); Trichomonas vaginalis PCR NOT DETECTED (Not Detect)
== END 2024-01-01 19:31 | disposition home or self-care (01) ==
LOC: HO.HHCLNP 19:30
PROVIDERS: Visit Provider Internal Medicine
DX: N89.8 Other specified noninflammatory disorders of vagina (principal); R39.9 Unspecified symptoms and signs involving the genitourinary system
CPT/HCPCS: 0352U; 0353U; 87086

== ENCOUNTER 2024-01-22 19:17 | Outpatient (REF) | payer MEDICAID, SELFPAY ==
[2024-01-23 03:42] LABS: CT PCR NOT DETECTED (Not Detect.); NG PCR NOT DETECTED (Not Detect.)
[2024-01-23 10:57] LABS: Bacterial Vaginosis PCR POSITIVE (Negative); Candida Group PCR DETECTED (Not Detect); Candida glab krusei PCR NOT DETECTED (Not Detect); Trichomonas vaginalis PCR NOT DETECTED (Not Detect)
== END 2024-01-22 19:18 | disposition home or self-care (01) ==
LOC: HO.HHCLNP 19:17
PROVIDERS: Visit Provider Internal Medicine
DX: N76.1 Subacute and chronic vaginitis (principal)
CPT/HCPCS: 0352U; 0353U

== ENCOUNTER 2024-01-30 13:31 | Outpatient (AMB) | payer MEDICAID, SELFPAY ==
[2024-01-30 13:34] VITALS: BP 126/76; PULSE 69; BMI 24.8
--- NOTE | 2024-01-30 13:34 | A.OFFVIS_ITS ---
Vital Signs 01/30/24 13:34 Height 5 ft 3 in Weight 140 lb 3.424 oz BMI 24.8 BP 126/76 Blood Pressure Location Lt brachial Position Sitting Pulse 69 Intake Visit Reasons: 6 month follow up Intake Note: Jordyn returns to in office visit today in 6 months follow up of LFTs. CC: Patient reports doing well and denies having any GI concerns today. Salon Manager Required: No Accompanied by: Self / Same As Patient Allergies No Known Allergies Allergy (Verified 01/30/24 13:35) HPI HPI 6 month follow up: Details: Assessment & Plan (1) Elevated liver transaminase level: Comment: BASELINE LABS 03/28/23 Estimated GFR > 60 Total Bilirubin 0.6 Direct Bilirubin 0.3 AST 45 H ALT 12 Alkaline Phosphatase 83 Alpha Fetoprotein 2.0 Hepatitis A IgM Ab Nonreactive Hep Bs Antigen Negative Hep Bs Antibody GRAYZONE Hep B Core Total Ab Nonreactive Hepatitis C Ab (EIA) Nonreactive Ferritin 38 Ceruloplasmin 27 MALU Screen NEGATIVE Anti-Mitochondrial Ab NEGATIVE Anti-Smooth Muscle Ab <20 Tiss Transglutamin IgG <1.0 Tiss Transglutamin IgA <1.0 PEth 16:0/18.1 (POPEth) NEGATIVE PEth 16:0/18.2 (PLPEth) NEGATIVE HIV 1&2 Ab/P24 Ag 4thGn Nonreactive CURRENT LABS 06/19/23 13:36 Ferritin 38 Total Bilirubin 0.4 Direct Bilirubin 0.1 GGT 11 AST 40 H ALT 11 Alkaline Phosphatase 80 Ceruloplasmin 27 MALU Screen NEGATIVE Anti-Mitochondrial Ab NEGATIVE Anti-Smooth Muscle Ab <20 Tiss Transglutamin IgG <1.0 Tiss Transglutamin IgA <1.0 PEth 16:0/18.1 (POPEth) NEGATIVE PEth 16:0/18.2 (PLPEth) NEGATIVE HIV 1&2 Ab/P24 Ag 4thGn Nonreactive Laboratory Tests 06/19/23 13:36 Ferritin 38 Total Bilirubin 0.4 Direct Bilirubin 0.1 GGT 11 AST 40 H ALT 11 Alkaline Phosphatase 80 Ceruloplasmin 27 MALU Screen NEGATIVE Anti-Mitochondrial Ab NEGATIVE Anti-Smooth Muscle Ab <20 Tiss Transglutamin IgG <1.0 Tiss Transglutamin IgA <1.0 PEth 16:0/18.1 (POPEth) NEGATIVE PEth 16:0/18.2 (PLPEth) NEGATIVE HIV 1&2 Ab/P24 Ag 4thGn Nonreactive ULTRASOUND THE ABDOMEN 04/24/23 FINDINGS: PANCREAS: Normal. ABDOMINAL AORTA: The proximal, mid, and distal segments are normal in caliber. INFERIOR VENA CAVA: Visualized portions are normal. LIVER: Normal. The liver is normal in size. The liver contour is normal. Parenchymal echogenicity is normal. No focal hepatic lesion. There is no intrahepatic biliary duct dilatation seen. GALLBLADDER: Normal. The gallbladder is physiologically distended without evidence of stones, sludge, polyps, wall thickening or pericholecystic fluid. COMMON BILE DUCT: Normal in caliber measuring 0.3 cm in diameter. RIGHT KIDNEY: Normal. No hydronephrosis. No renal calculi or focal parenchymal lesions. The kidney measures 9.9 cm in maximum dimension. LEFT KIDNEY: Normal. No hydronephrosis. No renal calculi or focal parenchymal lesions. The kidney measures 9.0 cm in maximum dimension. SPLEEN: Normal. The spleen measures 8.8 cm in maximum dimension. FREE FLUID: None. US/US abdomen complete IMPRESSION: Unremarkable examination Code(s): R74.01 - Elevation of levels of liver transaminase levels Plan She continues to have no signs or symptoms of liver disease. All of her testing seems to indicate that there is not any inflammation a problem with the liver including the GGT she certainly does not have autoimmune liver disease, she does not have iron overload, she does not drink alcohol, the only possible driving factor could be Tylenol use. I do educate her that it is not just about taking more than 8 Tylenol in a day but taking more than 2 Tylenol in any [address] can drive AST elevations. It is also entirely possible that she s imply runs higher than other people on the aguilar curve. The only other complaint she has is polyuria polydipsia and that her feet swell when she stands for long periods of time. She wants to know if she has been tested for diabetes. A random glucose on her latest Chem panel was quite normal at 67 but I defer this question to her primary care provider since polyuria polydipsia can be a symptom for great many things and would require a larger workup then I can provide as specialty clinician. However, diabetes does not seem likely in the differential diagnosis at this time. Return office visit in 6 months and at that time will repeat her liver enzymes and see how she is trending. TODAY'S VISIT She continues to feel well and has no new health problems to report. I again explained to her that because of her young age we continue to follow her to see if any reversible liver problem arises. So far we have not been able to uncover anything except possible fatty liver in this patient that is neither overweight, nor drinks alcohol. She has also not on any liver toxic medications. Return office visit in 6 months [facility] Social History Household Members: Friend(s) Housing: Apartment Alcohol intake: current Alcohol intake frequency: holidays/special occasions only Patient Tobacco Use Status: Never used Tobacco Substance Use Type: Marijuana Gender identity: Female Female Reproductive History Menstrual Age of Menarche: 13 Review of Systems Const Denies fatigue, Denies fever(s), Denies night sweats, Denies poor appetite and Denies weight loss Eyes Details: glasses Reports requires corrective lenses ENT Reports Normal hearing present, Denies dental pain, Denies dysphagia, Denies hearing loss, Denies mouth pain, Denies odynophagia, Denies throat swelling, Denies tongue swelling and Reports other (Dentition adequate) Card Reports no additional complaints Resp Reports no additional complaints GI Details: Denies abdominal pain, Denies melena, Denies bloating, Denies hematochezia, Denies constipation, Denies GI cramping, Denies dysphagia, Denies excessive flatus, Denies early satiety, Denies heartburn, Denies diarrhea, Denies nausea, Denies odynophagia, Denies vomiting and Denies hematemesis Skin/Breast Denies pruritus, Denies lesions, Denies rash and Denies jaundice Neuro Reports Normal hearing present and Denies Abnormal speech present Endo Denies fatigue Aller/Immun Denies throat swelling and Denies tongue swelling Physical Exam Vital Signs: Last Vital Signs Pulse 69 01/30/24 13:34 BP 126/76 01/30/24 13:34 BMI result Body Mass Index 24.8 Const General: cooperative, no acute distress, well developed and well groomed Nutritional Appearance: average body habitus and well nourished Orientation/consciousness: oriented to person, oriented to place and oriented to time Limitations: No language barrier HEENT Head: Yes normocephalic and Yes atraumatic Eyes General: appearance normal, both eyes and all related structures Pupils: Equal, round and reactive pupils present Neck Neck: Yes normal visual inspection and Yes no lymphadenopathy Thyroid: Thyroid normal Resp Effort & Inspection: normal respiratory effort and able to speak in complete sentences Auscultation: clear to auscultation bilaterally Cardio Rate: regular rate Rhythm: regular rhythm Heart sounds: Normal, physiologic split S2 sound present Peripheral pulses: radial pulses present and posterior tibial pulses present GI Inspection: No distended and No Abdominal panniculus present Palpation (GI): Soft to palpation, nontender, no guarding, not rigid and No hepatosplenomegaly present Percussion: Yes normal to percussion Auscultation: normal bowel sounds Rectal Exam - Female: deferred Skin General skin exam: no rashes or lesions noted, turgor normal, skin not dry, no jaundice, No spider nevi and no striae Rashes: no rashes Nails: normal Neuro General: oriented to person, oriented to place and oriented to time Cranial nerves: Yes Equal, round and reactive pupils present and Yes Normal hearing present Speech: No Abnormal speech present Extrem General: Yes normal to inspection, No clubbing, No cyanosis and No edema Psych Appearance: grossly normal and well kempt Mental Status: mental status grossly normal Speech and movement: Normal speech and movement present Affect: normal affect Attitude: cooperative Thought process: Normal thought process present and not confabulating Thought content: Normal thought content present Insight: Limited insight present (Psych) Judgement: Limited judgement present (Psych) Assessment & Plan Assessment & Plan (1) Elevated liver transaminase level: Comment: BASELINE LABS 03/28/23 Estimated GFR > 60 Total Bilirubin 0.6 Direct Bilirubin 0.3 AST 45 H ALT 12 Alkaline Phosphatase 83 Alpha Fetoprotein 2.0 Hepatitis A IgM Ab Nonreactive Hep Bs Antigen Negative Hep Bs Antibody GRAYZONE Hep B Core Total Ab Nonreactive Hepatitis C Ab (EIA) Nonreactive Ferritin 38 Ceruloplasmin 27 MALU Screen NEGATIVE Anti-Mitochondrial Ab NEGATIVE Anti-Smooth Muscle Ab <20 Tiss Transglutamin IgG <1.0 Tiss Transglutamin IgA <1.0 PEth 16:0/18.1 (POPEth) NEGATIVE PEth 16:0/18.2 (PLPEth) NEGATIVE HIV 1&2 Ab/P24 Ag 4thGn Nonreactive CURRENT LABS 06/19/23 13:36 Ferritin 38 Total Bilirubin 0.4 Direct Bilirubin 0.1 GGT 11 AST 40 H ALT 11 Alkaline Phosphatase 80 Ceruloplasmin 27 MALU Screen NEGATIVE Anti-Mitochondrial Ab NEGATIVE Anti-Smooth Muscle Ab <20 Tiss Transglutamin IgG <1.0 Tiss Transglutamin IgA <1.0 PEth 16:0/18.1 (POPEth) NEGATIVE PEth 16:0/18.2 (PLPEth) NEGATIVE HIV 1&2 Ab/P24 Ag 4thGn Nonreactive Laboratory Tests 06/19/23 13:36 Ferritin 38 Total Bilirubin 0.4 Direct Bilirubin 0.1 GGT 11 AST 40 H ALT 11 Alkaline Phosphatase 80 Ceruloplasmin 27 MALU Screen NEGATIVE Anti-Mitochondrial Ab NEGATIVE Anti-Smooth Muscle Ab <20 Tiss Transglutamin IgG <1.0 Tiss Transglutamin IgA <1.0 PEth 16:0/18.1 (POPEth) NEGATIVE PEth 16:0/18.2 (PLPEth) NEGATIVE HIV 1&2 Ab/P24 Ag 4thGn Nonreactive ULTRASOUND THE ABDOMEN 04/24/23 FINDINGS: PANCREAS: Normal. ABDOMINAL AORTA: The proximal, mid, and distal segments are normal in caliber. INFERIOR VENA CAVA: Visualized portions are normal. LIVER: Normal. The liver is normal in size. The liver contour is normal. Parenchymal echogenicity is normal. No focal hepatic lesion. There is no intrahepatic biliary duct dilatation seen. GALLBLADDER: Normal. The gallbladder is physiologically distended without evidence of stones, sludge, polyps, wall thickening or pericholecystic fluid. COMMON BILE DUCT: Normal in caliber measuring 0.3 cm in diameter. RIGHT KIDNEY: Normal. No hydronephrosis. No renal calculi or focal parenchymal lesions. The kidney measures 9.9 cm in maximum dimension. LEFT KIDNEY: Normal. No hydronephrosis. No renal calculi or focal parenchymal lesions. The kidney measures 9.0 cm in maximum dimension. SPLEEN: Normal. The spleen measures 8.8 cm in maximum dimension. FREE FLUID: None. US/US abdomen complete IMPRESSION: Unremarkable examination Code(s): R74.01 - Elevation of levels of liver transaminase levels Category: Medical Plan She continues to feel well and has no new health problems to report. I again explained to her that because of her young age we continue to follow her to see if any reversible liver problem arises. So far we have not been able to uncover anything except possible fatty liver in this patient that is neither overweight, nor drinks alcohol. She has also not on any liver toxic medications. Return office visit in 6 months Orders: Orders Comprehensive Met. Panel 01/30/24 R74.01 - Elevation of levels of liver transaminase levels Complete Blood Count Auto Diff 01/30/24 R74.01 - Elevation of levels of liver transaminase levels Alpha Fetoprotein 01/30/24 R74.01 - Elevation of levels of liver transaminase levels Gamma Glutamyl Transpeptidase 01/30/24 R74.01 - Elevation of levels of liver transaminase levels US abdomen complete 01/30/24 R74.01 - Elevation of levels of liver transaminase levels Coding Level of Care Code Est Pt Level 3 (80649) Diagnoses Elevated liver transaminase level R74.01
== END 2024-01-30 14:12 | disposition home or self-care (01) ==
PROVIDERS: PCP Registered Nurse; Visit Provider Nurse Practitioner
DX: R74.01 Elevation of levels of liver transaminase levels (principal)
CPT/HCPCS: 99213

== ENCOUNTER → 2024-01-30 13:31 | Outpatient (BNVA) | payer MEDICAID, SELFPAY | PROVIDERS: PCP Registered Nurse; Visit Provider Nurse Practitioner | DX: R74.01 Elevation of levels of liver transaminase levels (principal) | CPT/HCPCS: 99212 ==

== ENCOUNTER 2024-02-01 09:31 | Outpatient (REF) | payer MEDICAID, SELFPAY ==
--- NOTE | ~2024-02-01 | US_ITS ---
EXAMINATION: US ABDOMEN COMPLETE CLINICAL INFORMATION: Elevation of liver transaminase levels. COMPARISON: Ultrasound abdomen complete 04/20/2023. TECHNIQUE: Real-time imaging of the abdominal viscera. Limited visualization due to bowel gas. FINDINGS: PANCREAS: Limited visualization of pancreatic tail and head. Imaged portion of pancreatic body is unremarkable. ABDOMINAL AORTA: Unremarkable. INFERIOR VENA CAVA: Visualized portions are normal. LIVER: Unremarkable hepatic echotexture. Normal hepatic contour. Limited visualization. GALLBLADDER: No gallstones. No gallbladder wall thickening. COMMON BILE DUCT: Normal in caliber measuring 0.23 cm in diameter. RIGHT KIDNEY: No hydronephrosis. No renal calculi. Limited visualization. The kidney measures 9.3 cm in maximum dimension. LEFT KIDNEY: No hydronephrosis. No renal calculi. Limited visualization. The kidney measures 9.6 cm in maximum dimension. SPLEEN: Normal. The spleen measures 9.4 cm in maximum dimension. FREE FLUID: None. US/US abdomen complete IMPRESSION: Unremarkable exam. Limited visualization.
== END 2024-02-01 09:32 | disposition home or self-care (01) ==
LOC: HO.US 09:31
PROVIDERS: PCP Registered Nurse; Visit Provider Registered Nurse
DX: R74.01 Elevation of levels of liver transaminase levels (principal)
CPT/HCPCS: 76700

== ENCOUNTER 2024-02-01 10:03 | Outpatient (REF) | payer MEDICAID, SELFPAY ==
[2024-02-01 10:13] LABS: MANUAL DIFF FLAG NO
[2024-02-01 10:24] LABS: Basophils Absolute Auto 0.1 X10*3/uL (0.0-0.2); Eosinophils Absolute Auto 0.1 X10*3/uL (0.0-0.4); Eosinophils Percent Auto 1.7 % (0-4); Hematocrit 39.3 % (37.0-47.0); Hemoglobin 13.2 g/dl (12.0-16.0); Imm Gran Abs Auto 0.01 X10*3/uL (0.00-0.03); Imm Gran Pct Auto 0.2 % (0.0-0.4); Lymphocytes Absolute Auto 2.4 X10*3/uL (1.2-4.9); Lymphocytes Percent Auto 37.5 % (20-40); Mean Corpuscular HGB Conc 33.6 g/dl (31.0-35.0); Mean Corpuscular Hemoglobin 29.9 pg (27.0-33.0); Mean Corpuscular Volume 88.9 fL (80.0-98.0); Mean Platelet Volume 9.5 fL (9.4-12.3); Monocytes Absolute Auto 0.5 X10*3/uL (0.1-1.2); Monocytes Percent Auto 7.6 % (2-11); Neutrophils Absolute Auto 3.3 x10*3/uL (2.0-8.3); Platelet Count 349 X10*3/uL (160-400); Red Blood Count 4.42 X10*6/uL (4.20-5.50); Red Cell Distribution Width 12.3 % (11.0-16.0); White Blood Count 6.3 X10*3/uL (4.8-10.8)
[2024-02-01 11:01] LABS: Alanine Aminotransferase 12 U/L (0-31); Albumin Level 3.9 g/dL (3.5-5.0); Alkaline Phosphatase 67 U/L (39-117); Anion Gap 9 (12-20); Aspartate Amino Transferase 39 U/L (5-31); Bilirubin Total 0.5 mg/dL (0.0-1.0); Blood Urea Nitrogen 8 mg/dL (9-16); Calcium 9.2 mg/dL (8.4-10.2); Carbon Dioxide 26 mmol/L (22-29); Chloride 108 mmol/L (96-108); Estimated Glomerular Filt Rate > 60; Gamma Glutamyl Transpeptidase 13 U/L (7-33); Glucose Random 79 mg/dL (60-115); Potassium 3.9 mmol/L (3.3-5.1); Sodium 139 mmol/L (135-145)
[2024-02-04 12:58] LABS: Alpha Fetoprotein 1.9 ng/mL
== END 2024-02-01 10:04 | disposition home or self-care (01) ==
LOC: HO.LAB 10:03
PROVIDERS: Visit Provider Nurse Practitioner
DX: R74.01 Elevation of levels of liver transaminase levels (principal)
CPT/HCPCS: 36415; 80053; 82105; 82977; 85025

== ENCOUNTER 2024-02-07 18:32 | Outpatient (REF) | payer MEDICAID, SELFPAY ==
[2024-02-08 17:41] LABS: CT PCR NOT DETECTED (Not Detect.); NG PCR NOT DETECTED (Not Detect.)
== END 2024-02-07 18:33 | disposition home or self-care (01) ==
LOC: HO.HHCLNP 18:32
PROVIDERS: Visit Provider Student in an Organized Health Care Education/Training Program
DX: Z00.00 Encounter for general adult medical examination without abnormal findings (principal)
CPT/HCPCS: 87491; 87591

== ENCOUNTER 2024-02-18 18:15 | Outpatient (REF) | payer MEDICAID, SELFPAY ==
[2024-02-19 09:15] LABS: Bacterial Vaginosis PCR NEGATIVE (Negative); Candida Group PCR DETECTED (Not Detect); Candida glab krusei PCR NOT DETECTED (Not Detect); Trichomonas vaginalis PCR NOT DETECTED (Not Detect)
== END 2024-02-18 18:16 | disposition home or self-care (01) ==
LOC: HO.HHCLNP 18:15
PROVIDERS: Visit Provider Advanced Practice Midwife
DX: N89.8 Other specified noninflammatory disorders of vagina (principal)
CPT/HCPCS: 0352U

== ENCOUNTER 2024-03-26 16:18 | Outpatient (REF) | payer MEDICAID, SELFPAY ==
[2024-03-26 17:52] LABS: Hematocrit 37.7 % (37.0-47.0); Hemoglobin 12.7 g/dl (12.0-16.0); Mean Corpuscular HGB Conc 33.7 g/dl (31.0-35.0); Mean Corpuscular Hemoglobin 29.8 pg (27.0-33.0); Mean Corpuscular Volume 88.5 fL (80.0-98.0); Mean Platelet Volume 10.2 fL (9.4-12.3); Platelet Count 349 X10*3/uL (160-400); Red Blood Count 4.26 X10*6/uL (4.20-5.50); White Blood Count 8.6 X10*3/uL (4.8-10.8)
[2024-03-26 17:55] LABS: Estimated Average Glucose 91 mg/dL; Hemoglobin A1c % 4.8 % (<6.0)
[2024-03-26 18:26] LABS: Alanine Aminotransferase 10 U/L (0-31); Albumin Level 4.2 g/dL (3.5-5.0); Alkaline Phosphatase 90 U/L (39-117); Anion Gap 13 (12-20); Aspartate Amino Transferase 36 U/L (5-31); Bilirubin Total 0.3 mg/dL (0.0-1.0); Blood Urea Nitrogen 7 mg/dL (9-16); Calcium 9.5 mg/dL (8.4-10.2); Carbon Dioxide 24 mmol/L (22-29); Chloride 105 mmol/L (96-108); Estimated Glomerular Filt Rate > 60; Glucose Random 90 mg/dL (60-115); Potassium 3.4 mmol/L (3.3-5.1); Sodium 139 mmol/L (135-145); Total Protein 7.3 g/dL (6.5-8.0)
[2024-03-26 18:41] LABS: TSH reflex Free T4 1.49 uIU/mL (0.32-4.0)
[2024-03-27 04:46] LABS: Syphilis Screen Nonreactive (Nonreactive)
[2024-03-27 05:00] LABS: HBS Num1 8.26 mIU/mL (0-7.99); HBc Num1 0.11 S/CO (0.00-0.79); HBsAGNum1 0.36 S/CO (0.00-0.99); HIV AB/AG Nonreactive (Nonreactive); HIV Num 1 0.05 S/CO (0.00-0.99); Hepatitis B Core Antibody Nonreactive (Nonreactive); Hepatitis B Surface Antigen Negative (Negative); ~HepC Num1 0.09 S/CO (0.00-0.79); ~Hepatitis C Antibody Nonreactive (Nonreactive)
[2024-03-27 05:45] LABS: HBS Num2 8.28 mIU/mL (0-7.99); HBS Num3 8.07 mIU/mL (0-7.99); ~Hepatitis B Surface Antibody GRAYZONE (Nonreactive)
== END 2024-03-26 16:19 | disposition home or self-care (01) ==
LOC: HO.HHCL 16:18
PROVIDERS: Visit Provider Student in an Organized Health Care Education/Training Program
DX: Z00.00 Encounter for general adult medical examination without abnormal findings (principal); Z11.4 Encounter for screening for human immunodeficiency virus [HIV]
CPT/HCPCS: 36415; 80053; 83036; 84443; 85027; 86704; 86706; 86780; 86803; 87340; 87389

== ENCOUNTER 2024-03-28 16:20 | Outpatient (REF) | payer MEDICAID, SELFPAY ==
[2024-03-29 06:45] LABS: CT PCR NOT DETECTED (Not Detect.); NG PCR NOT DETECTED (Not Detect.)
[2024-03-29 14:50] LABS: Bacterial Vaginosis PCR NEGATIVE (Negative); Candida Group PCR DETECTED (Not Detect); Candida glab krusei PCR NOT DETECTED (Not Detect); Trichomonas vaginalis PCR NOT DETECTED (Not Detect)
== END 2024-03-28 16:21 | disposition home or self-care (01) ==
LOC: HO.HHCLNP 16:20
PROVIDERS: Visit Provider Student in an Organized Health Care Education/Training Program
DX: N76.0 Acute vaginitis (principal)
CPT/HCPCS: 0352U; 87491; 87591

== ENCOUNTER 2024-04-03 14:12 | Outpatient (REF) | payer MEDICAID, SELFPAY ==
[2024-04-04 21:29] LABS: Trichomonas vaginalis RNA NOT DETECTED (NOT DETECTED)
== END 2024-04-03 14:13 | disposition home or self-care (01) ==
LOC: HO.HHCL 14:12
PROVIDERS: Visit Provider Student in an Organized Health Care Education/Training Program
DX: N76.0 Acute vaginitis (principal)
CPT/HCPCS: 36415; 87661

== ENCOUNTER 2024-07-15 09:39 | Outpatient (REF) | payer MEDICAID, SELFPAY ==
[2024-07-16 17:54] LABS: Lyme Abs Screen <0.90 index
[2024-07-17 09:54] LABS: RPR Rapid Plasma Reagin NON-REACTIVE (NON-REACTIVE)
== END 2024-07-15 09:40 | disposition home or self-care (01) ==
LOC: HO.HHCL 09:39
PROVIDERS: Visit Provider Internal Medicine
DX: R21 Rash and other nonspecific skin eruption (principal)
CPT/HCPCS: 36415; 86592; 86617; 86618

== ENCOUNTER 2024-07-25 17:30 | Outpatient (REF) | payer MEDICAID, SELFPAY ==
--- OUTSIDE RECORDS SUMMARY | 2024-07-25 17:33 | XMS_ITS | Data Portability ---
Author Organization [facility] [address] Address [address] [place] [address] Assessment No assessment recorded. Plan of Treatment Reminders Order Date Submit Date Provider Last Modified By Organization Details Last Modified Time Details Appointments None recorded. Lab test, [facility]22 [facility] [address] [place] [address], [phone], 3 19:16:37 urinalysis, dipstick 2022 023 [facility] 2099_jose [facility], [address] [place] [address], [phone], 3 19:16:37 vaginal pathogens panel, DOMINGA+probe, vaginal fluid 2022 023 [facility], [address] [place] [address], [id number], 3 20:06:08 Referral None recorded. Procedures None recorded. Surgeries None recorded. Imaging None recorded. Medication Orders fluconazole 150 mg tablet 2022 023 [id number], [address] [facility], , [address], 3 19:16:39 Patient TargetsNo targets recorded. Patient Instructions Encounter Date Encounter Id Patient Instructions Last Modified By Organization Details Last Modified Time 08/27/2022 [id number] -Reviewed the various causes of vaginal problems. Reviewed good vulvar/vaginal hygiene and ways to reduce symptoms. Advised to call if treatment is not helpful or if symptoms persist or recur. -Do not wear tight fitting clothes. Do not have sex until your symptoms are gone. Do not use Douches or other irritating products in your vagina as this can make the symptoms worse. - Use condoms for all sexual activity. - If you develop severe back pain or pelvic/abdominal with nausea, fevers, and vomiting you need to go to Emergency room immediately - I recommend complete treatment fully before engaging in intercourse, if you are waiting for a STD test I do not recommend engaging in intercourse until test results have returned. [email or web address] Not available 08/27/2022 19:15:43 Reason for Referral None Reported. Results Created Date Observation Date Name Description Value Unit Range Abnormal Flag Note LastModifiedBy Organization Detail LastModifiedTime 08/27/1908/29/2022 NUSWA B VAGIN ITIS PLUS (VG+) atopobium vaginae HIGH - 2 score abnormal Not Available [facility] ([facility]) [address] [place], [address], 08/30/2022 06:07:40 08/27/1908/29/2022 NUA B VAGIN ITIS PLUS (VG+) bvab 2 HIGH - 2 score abnormal Not Available [facility] ([facility]) [address] [facility], [place], [address], 08/30/2022 06:07:40 08/27/1908/29/2022 NUA B VAGIN ITIS PLUS (VG+) megasphaera 1 HIGH - 2 score abnormal Calcu late total score by timothy deluca the 3 indiv idual bacte rial vagin osis (BV) marke r score s toget her. Total score is inter prete d as follo ws: Total score 0-1: Indic ates the absen ce of BV. Total score 2: Indet ermin ate for BV. Addit ional clini alexus data shoul d be evalu ated to estab katya a diagn osis. Total score 3-6: Indic ates the prese nce of BV. This test was devel oped and its perfo rmanc e holley cteri stics deter mined by [facility]. It has not been clear ed or appro marisel by the Food and Drug Admin istra tion. Not Available [facility] ([facility]) [address] [facility], [place], [address], 08/30/2022 06:07:40 08/27/19 23 08/29/2022 NUSWA B VAGIN ITIS PLUS (VG+) dima albicans, DOMINGA NEGATI VE negati ve Not Available [facility] ([facility]) [address] [facility], [place], [address], 08/30/2022 06:07:40 08/27/19 23 08/29/2022 NUA B VAGIN ITIS PLUS (VG+) dima glabrata, DOMINGA NEGATI VE negati ve Not Available [facility] ([facility]) [address] [facility], [place], [address], 08/30/2022 06:07:40 08/27/1908/30/2022 NUA B VAGIN ITIS PLUS (VG+) trich vag by DOMINGA NEGATI VE negati ve Not Available [facility] ([facility]) [address] [facility], [place], [address], 08/30/2022 06:07:40 08/27/19 23 08/30/2022 NUA B VAGIN ITIS PLUS (VG+) chlamydia trachomatis, DOMINGA NEGATI VE negati ve Not Available [facility] ([facility]) [address] [facility], [place], [address], 08/30/2022 06:07:40 08/27/1908/30/2022 NUA B VAGIN ITIS PLUS (VG+) neisseria gonorrhoeae, DOMINGA NEGATI VE negati ve Not Available [facility] ([facility]) [address] [facility], [place], [address], 08/30/2022 06:07:40 08/27/19 23 08/27/2022 urina lysis , dipst ick Unknown Analyte Normal = light yellow Not Available _[facility] [address], [place], [address], 08/27/2022 18:32:00 08/27/19 23 08/27/2022 urina lysis , dipst ick Unknown Analyte Yellow Not Available jose [address], [place], [address], 08/27/2022 18:32:00 08/27/19 23 08/27/2022 urina lysis , dipst ick Unknown Analyte Normal = clear Not Available jyotsna galarza [address], [place], [address], 08/27/2022 18:32:00 08/27/19 23 08/27/2022 urina lysis , dipst ick Unknown Analyte Slight ly Cloudy Not Available jyotsna galarza [address], [place], [address], 08/27/2022 18:32:00 08/27/19 23 08/27/2022 urina lysis , dipst ick Unknown Analyte Normal = negati ve Not Available jyotsna galarza [address], [place], [address], 08/27/2022 18:32:00 08/27/19 23 08/27/2022 urina lysis , dipst ick Unknown Analyte Negati ve Not Available jyotsna galarza [address], [place], [address], 08/27/2022 18:32:00 08/27/19 23 08/27/2022 urina lysis , dipst ick Unknown Analyte Normal = Negati ve Not Available jyotsna galarza [address], [place], [address], 08/27/2022 18:32:00 08/27/19 23 08/27/2022 urina lysis , dipst ick Unknown Analyte Negati ve Not Available jyotsna galarza [address], [place], [address], 08/27/2022 18:32:00 08/27/1908/27/2022 urina lysis , dipst ick Unknown Analyte Normal = Negati ve Not Available jyotsna galarza [address], [place], [address], 08/27/2022 18:32:00 08/27/19 23 08/27/2022 urina lysis , dipst ick Unknown Analyte Negati ve Not Available jyotsna galarza [address], [place], [address], 08/27/2022 18:32:00 08/27/19 23 08/27/2022 urina lysis , dipst ick Unknown Analyte Normal = 1.010, 1.015, 1.020 Not Available jyotsna galarza [address], [place], [address], 08/27/2022 18:32:00 08/27/19 23 08/27/2022 urina lysis , dipst ick Unknown Analyte 1.015 Not Available jose [address], [place], [address], 08/27/2022 18:32:00 08/27/19 23 08/27/2022 urina lysis , dipst ick Unknown Analyte Normal = Negati ve Not Available jyotsna galarza [address], [place], [address], 08/27/2022 18:32:00 08/27/19 23 08/27/2022 urina lysis , dipst ick Unknown Analyte Negati ve Not Available jyotsna galarza [address], [place], [address], 08/27/2022 18:32:00 08/27/19 08/27/2022 urina lysis , dipst ick Unknown Analyte Normal = 6.5, 7.0, 7.5, 8.0 Not Available jyotsna galarza [address], [place], [address], 08/27/2022 18:32:00 08/27/19 23 08/27/2022 urina lysis , dipst ick Unknown Analyte 7.0 Not Available [address], [place], [address], 08/27/2022 18:32:00 08/27/19 23 08/27/2022 urina lysis , dipst ick Unknown Analyte Normal = Negati ve Not Available [facility] galarza [address], [place], [address], 08/27/2022 18:32:00 08/27/19 23 08/27/2022 urina lysis , dipst ick Unknown Analyte Negati ve Not Available jyotsna [address], [place], [address], 08/27/2022 18:32:00 08/27/19 23 08/27/2022 urina lysis , dipst ick Unknown Analyte Normal = 0.2, 1.0 Not Available jyotsna galarza [address], [place], [address], 08/27/2022 18:32:00 08/27/19 23 08/27/2022 urina lysis , dipst ick Unknown Analyte 0.2 E.U./d L Not Available 2099jyotsna galarza [address], [place], [address], 08/27/2022 18:32:00 08/27/19 23 08/27/2022 urina lysis , dipst ick Unknown Analyte Normal = Negati ve Not Available [facility] [address], [place], [address], 08/27/2022 18:32:00 08/27/19 23 08/27/2022 urina lysis , dipst ick Unknown Analyte Negati ve Not Available jyotsna [address], [place], [address], 08/27/2022 18:32:00 08/27/19 23 08/27/2022 urina lysis , dipst ick Unknown Analyte Normal = Negati ve Not Available jyotsna [address], [place], [address], 08/27/2022 18:32:00 08/27/19 23 08/27/2022 urina lysis , dipst ick Unknown Analyte Negati ve Not Available [address], [place], [address], 08/27/2022 18:32:00 08/27/19 23 08/27/2022 pregn thee test, urine Unknown Analyte Normal = Negati ve Not Available jyotsna [address], [place], [address], 08/27/2022 18:31:52 08/27/19 23 08/27/2022 pregn thee test, urine Unknown Analyte negati ve Not Available [address], [place], [address], 08/27/2022 18:31:52 Result Notes None recorded. Problems Name Problem SNOMED Code Status Onset Date Resolution Date Notes Provider Name and Address Organization Details Recorded Time Bacterial vaginosis 638798271 Active 023 L[place]ON [place], [place] - [facility] 18:33:35 Candidal otitis externa 96434768 Active 023 L[place] - [facility] 3 18:33:45 Anxiety 62485147 Active 023 LAVON bartlett [facility] 3 18:35:00 Problem Notes None recorded. Medical Equipment None Reported. Allergies No known drug allergies Medications Name Sig Start Date Stop Date Status Note LastModified by Organization Details LastModified Time fluconazole 150 mg tablet TAKE 1 TABLET EVERY DAY BY MOUTH WITH MEALS FOR 1 DAY. active Not Available Not Available N ot Available metronidazol e 0.75 % (37.5 mg/5 gram) vaginal gel INSERT 1 APPLICATORF UL VAGINALLY EVERY DAY AT BEDTIME FOR 7 DAYS. active Not Available Not Available Not Available norethindron e (contracepti ve) 0.35 mg tablet TAKE 1 TABLET BY MOUTH EVERY DAY active Not Available Not Available No t Available norelgestrom in-ethin.est radiol active Not Available Not Available Not Available Vitals Date Recorded Body height Body mass index (BMI) Body weight Respiratory rate Heart rate Oxygen saturation Oxygen saturation in Arterial blood by Pulse oximetry Body temperature Systolic blood pressure Diastolic blood pressure Provider Name and Address Organization Details Last Updated DateTime 3 162.56 cm 24 kg/m2 60071.9 3 g 19 /min 75 /min 99 % 99 % 98.6 [degF] 122 mm[Hg] 77 mm[Hg] LAVON CAICEDO [facility] 3 18:38:46 Social History Question Answer Notes LastModified by Organizat ion Details LastModified Time Tobacco Smoking Status Never Smoker LAVON bartlett [facility] 08/27/2022 18:34:48 What Is Your Level Of Alcohol Consumption? Occasional Information not available 08/27/2022 How Many Times Per Week Do You Consume Alcohol? <1 Time Per Week Information not available 08/27/2022 Which Illicit Or Recreational Drugs Have You Used? Marijuana Daily Information not available 08/27/2022 Do You Use Any Illicit Or Recreational Drugs? Yes Information not available 08/27/2022 Sex: Unknown Functional Status None recorded. Mental Status None recorded. Family History Relationship Description Onset Age of this Age Resolved Age Notes LastModified by Organization Details LastModified Time Father No current problems or disability [email or web address] Not available 08/13 18:33:57 Mother No current problems or disability [email or web address] Not available 08/13 18:33:57 Medical History No medical history recorded. Gynecological HistoryNo gynecological history recorded. Obstetrics History GPAL:G 0 P 0 0 0 0 Past Encounters Encounter ID Performer Location Encounter Start Date Encounter Closed Date Diagnosis/Indication Diagnosis SNOMED-CT Code Diagnosis ICD10 Code [id number] [place] [address] [address] 08/27/2022 18:10:38 08/27/2022 19:17:30 Acute vaginitis 38619882 N76.0 Health Concerns Section Related Observation LastModified by Organization Detai ls LastModified Time None Recorded Concern Status LastModified by Organization Details LastModified Time None Recorded Advance Directives Directive None Recorded Payers Encounter Date Sequence Insurance Name Policy Number Policy Cheng Covered Member ID Cheng Member ID Guarantor Name 08/27/2022 1 [place] Jordyn R Badone [id number] Jordyn Badone Notes Date Note Type Note Provider Name and Address Organization Details Recorded Time 08/27/2022 text/html vaginal discharg e after unprotected sexual encounter . denies multiple partners. HX of developing yeast infection. Jose Antonio Wiggins NP [address] [place], [address], [place] - [facility] 08/27/2022 19:18:04 OBGyn Episode No OBEpisode recorded.
[2024-07-26 02:52] LABS: CT PCR NOT DETECTED (Not Detect.); NG PCR NOT DETECTED (Not Detect.)
[2024-07-26 09:32] LABS: Bacterial Vaginosis PCR POSITIVE (Negative); Candida Group PCR DETECTED (Not Detect); Candida glab krusei PCR NOT DETECTED (Not Detect); Trichomonas vaginalis PCR NOT DETECTED (Not Detect)
== END 2024-07-25 17:31 | disposition home or self-care (01) ==
LOC: HO.HHCLNP 17:30
PROVIDERS: Visit Provider Internal Medicine
DX: N89.8 Other specified noninflammatory disorders of vagina (principal)
CPT/HCPCS: 0352U; 87491; 87591

== ENCOUNTER 2024-11-20 14:41 | Outpatient (REF) | payer OTHER, SELFPAY ==
[2024-11-20 16:02] LABS: MANUAL DIFF FLAG NO
[2024-11-20 16:05] LABS: Basophils Absolute Auto 0.1 X10*3/uL (0.0-0.2); Basophils Percent Auto 0.7 % (0-2); Eosinophils Absolute Auto 0.1 X10*3/uL (0.0-0.4); Eosinophils Percent Auto 1.3 % (0-4); Hematocrit 41.7 % (37.0-47.0); Hemoglobin 13.7 g/dl (12.0-16.0); Imm Gran Abs Auto 0.02 X10*3/uL (0.00-0.03); Imm Gran Pct Auto 0.2 % (0.0-0.4); Lymphocytes Absolute Auto 3.3 X10*3/uL (1.2-4.9); Lymphocytes Percent Auto 39.5 % (20-40); Mean Corpuscular HGB Conc 32.9 g/dl (31.0-35.0); Mean Corpuscular Hemoglobin 29.2 pg (27.0-33.0); Mean Corpuscular Volume 88.9 fL (80.0-98.0); Mean Platelet Volume 10.2 fL (9.4-12.3); Monocytes Absolute Auto 0.5 X10*3/uL (0.1-1.2); Monocytes Percent Auto 5.5 % (2-11); Neutrophils Absolute Auto 4.4 x10*3/uL (2.0-8.3); Neutrophils Percent Auto 52.8 % (45-73); Platelet Count 375 X10*3/uL (160-400); Red Blood Count 4.69 X10*6/uL (4.20-5.50); Red Cell Distribution Width 12.1 % (11.0-16.0); White Blood Count 8.4 X10*3/uL (4.8-10.8)
[2024-11-20 16:08] LABS: Prothrombin Time 11.2 SEC (10.9-12.4)
[2024-11-20 16:11] LABS: Partial Thromboplastin Time 32.6 SEC (26.0-36.8)
[2024-11-20 16:40] LABS: Alanine Aminotransferase 20 U/L (0-31); Albumin Level 4.5 g/dL (3.5-5.0); Alkaline Phosphatase 78 U/L (39-117); Anion Gap 12 (12-20); Aspartate Amino Transferase 55 U/L (5-31); Bilirubin Total 0.4 mg/dL (0.0-1.0); Blood Urea Nitrogen 7 mg/dL (9-16); Calcium 9.3 mg/dL (8.4-10.2); Carbon Dioxide 26 mmol/L (22-29); Chloride 107 mmol/L (96-108); Estimated Glomerular Filt Rate > 60; Glucose Random 86 mg/dL (60-115); Iron 57 mcg/dL (30-160); Percent Iron Saturation 20 % (15-50); Potassium 3.8 mmol/L (3.3-5.1); Sodium 141 mmol/L (135-145); Total Iron Binding Capacity 287 mcg/dL (228-428); Total Protein 7.7 g/dL (6.5-8.0); Unsaturated Iron Binding 230 ug/dL
[2024-11-20 16:55] LABS: Ferritin 28 ng/mL (10-122)
--- OUTSIDE RECORDS SUMMARY | 2024-11-20 17:21 | XMS_ITS | Encounter Summary ---
Author Organization [employer] Address [address] [place] [address] [address] [place] [address] Care Team Providers Care Glassware Defect Repairer Name Role Phone Enedelia Joe MD Primary Care Pro vider Reason for Visit * Reason Onset Date Comments Nurse Triage 11/19/2024 Encounter Details Date Type Department Care Team (Late st Contact Info) Description 11/19/2024 Telephone [facility] [address] [place], [place] [phone] Enedelia Joe MD [address] [place] [address] Nurse Triage Social History Tobacco Use Types Packs/Day Years Used Date Smoking Tobacco: Never Passive Smoke Exposure: Current Smokeless Tobacco: Never Comments:Started smoking at 24 y old twice a day mixed w marijuna Alcohol Use Standard Drinks/Week Comments Not Currently 3 (1 standard drink = 0.6 oz pure alcohol) Quit 1y ago due to fatty liver Depression Answer Date Recorded Patient Health Questionnaire-9 Score 3 02/07/2024 Patient Health Questionnaire-9 Score 3 02/07/2024 Last PHQ-9: Questionnaire Data Not on file 0 02/07/2024 Housing Stability Answer Date Recorded What is your housing situation today? I have barb landry 02/07/[address] you li ve. Do you have problems with any of the following? None of the above 02/07/2024 Food Insecurity Answer Date Recorded Within the past 12 months, y ou worried that your food would run out before you got money to buy more: Never True 02/07/2024 Within the past 12 months,th e food you bought just didn't last and you didn't have enough money to get more: Never True Transportation Answer Date Recorded In the past 12 months, has l ack of transportation kept you from medical appts, meetings, work or from getting things needed for daily living? No 02/07/2024 Utilities Answer Date Recorded In the past 12 months, has t he electric, gas, oil or water company threatened to shut off services in your home? No 02/07/2024 Depression Answer Date Recorded Patient Health Questionnaire-2 Score 0 02/07/2024 Internet Access Answer Date Recorded Internet Access Q1 Yes 04/14/2024 Internet Access Q2 Not on file 04/14/2024 Comments No Sex and Gender Information Value Date Recorded Sex Assigned at Female 06/12/2022 10:37 AM EDT Legal Sex Female 10:37 AM EDT Gender Identity Female 06/12/2022 10:37 AM EDT Sexual Orientation Straight 02/07/2024 10 :35 AM EDT documented as of this encounter Miscellaneous Notes * Telephone Encounter - Colleen Ragland RN - 11/19/2024 10:53 AM EDT called pt to triage, spoke to pt. pt states chronic BV and yeast, requesting script. pt states burning, urinary frequency with pain while urinating, clumpy white discharge and mild cramping on right side. pt denies new exposures, rash, strong odor, or other urinary symptoms. pt again requesting something be sent to the pharmacy, however pt will need to be seen and evaluated first. pt has not beenseen recently or had any related medications. advised home care: rest, fluids, warm tubs, avoid scented products, and call back as needed. given appt with PCP tomorrow at 2:15 for exam. pt understands and agrees with plan. Unable to verify insurance, pt aware. Pt states has new insurance and will bring to her appt. Protocol Used: Vaginal Discharge (Adult) Protocol-Based Disposition: See in Office or Video Visit within 3 Days Positive Triage Question: * Symptoms of a yeast infection (i.e., itchy, white discharge, not bad smelling) and not improved > 3 days following Care Advice * All higher-acuity triage questions were negative Care Advice Discussed: * Note to Triager - Vaginal Discharge * Reassurance and Education - Normal Vaginal Discharge * Genital Hygiene * Reasons To Call Back - Discharge becomes yellow or green - Discharge becomes foul smelling or itchy - Fever or abdomen pain occur - You become worse * Telephone Encounter - Billie Uriostegui - 11/19/2024 10:20 AM EDT Symptom: Vaginal Symptoms - Not Bleeding Outcome: Schedule an appointment to be seen within 24 hours Reason: Caller denied all higher acuity questions The caller accepted this outcome. documented in this encounter Plan of Treatment Upcoming Encounters Date Type Department Care Team (Late st Contact Info) Description 12/25/2024 1:30 PM EDT Office Visit [facility] [address] [place] [address] Enedelia Joe MD [address] [place] [address] 12/26/2024 3:00 PM EDT Office Visit [facility] [address] [place] [address] Amina Osborne documented as of this encounter Visit Diagnoses Not on filedocumented in this encounter Additional Health Concerns Assessment Noted Time PHQ-9 Depression Total Score: 3 02/07/20 24 10:26 AM EDT documented as of this encounter Care Teams Glassware Defect Repairer Relationship Specialty Start Date End Date Enedelia Joe MD [address] [place] [address] PCP - General Internal Medicine 03/28/23 documented as of this encounter
--- OUTSIDE RECORDS SUMMARY | 2024-11-20 17:21 | XMS_ITS | Encounter Summary ---
Author Organization [employer] Address [address] [place] [address] [address] [place] [address] Care Team Providers Care Family Service Center Director Name Role Phone Enedelia Joe MD Primary Care Pro vider Reason for Visit * Reason Comments UTI Encounter Details Date Type Department Care Team ([facility] Contact Info) Description 11/20/2024 2:15 PM EDT Office Visit [facility] [address] [place], [place] [phone] Enedelia Joe MD [address] [place] [address] Vaginal discharge (Primary Dx); Dysuria Social History Tobacco Use Types Packs/Day Years [...] AM EDT documented as of this encounter Last Filed Vital Signs Vital Sign Reading Time Taken Comments Blood Pressure 147/93 11/20/2024 2:00 PM EDT Pulse 58 11/20/2024 2:00 PM EDT Temperature 37 ??C (98.6 ??F) 11/20/2024 2:00 PM EDT Respiratory Rate 16 11/20/2024 2:00 PM EDT Oxygen Saturation - - Inhaled Oxygen Concentration - - Weight - - Height 162.6 cm (5' 4 ) 11/20/2024 2:00 PM EDT Body Mass Index - - documented in this encounter Plan of Treatment Upcoming Encounters Date Type Department Care Team (Late st Contact Info) Description 12/25/2024 1:30 PM EDT Office Visit [facility] [address] [place] [address] Enedelia Joe MD [address] [place] [address] 12/26/2024 3:00 PM EDT Office Visit [facility] [address] [place] [address] Amina Osborne Scheduled Orders Name Type Priority Associated Diagnoses Orde r Schedule Hepatitis B surface antigen, EIA Lab Routine Vaginal discharge Expected: 11/20/2024 (Approximate), Expires: 11/20/2025 Hepatitis C Antibody with Reflex to HCV, RNA, Quantitative, Real-Time PCR Lab Routine Vaginal discharge Expected: 11/20/2024 (Approximate), Expires: 11/20/2025 HIV-1/2 Antigen and Antibodies, Fourth Generation, with Reflexes Lab Routine Vaginal discharge Expected: 11/20/2024 (Approximate), Expires: 11/20/2025 Syphilis Screen Lab Routine Vaginal discharge Expected: 11/20/2024 (Approximate), Expires: 11/20/2025 Bacterial Vaginosis Microbiology Routine Vaginal discharge Expected: 11/20/2024 (Approximate), Expires: 11/20/2025 Chlamydia/N. Gonorrhoeae RNA, TMA, Urogenitial Microbiology Routine Vaginal discharge Ordered: 11/20/2024 documented as of this encounter Procedures Procedure Name Priority Date/Time Associated Diagnosis Comments COMPREHENSIVE METABOLIC PANEL Routine 11/20/2024 2:44 PM EDT Vaginal discharge POCT , URINE Routine 11/20/2024 2:17 PM EDT Dysuria POCT URINALYSIS DIPSTICK Routine 11/20/2024 2:12 PM EDT Dysuria documented in this encounter Results * (ABNORMAL) Comprehensive Metabolic Panel (11/20/2024 2:44 PM EDT) Sodium 141 135 - 145 mmol/L [facility] Potassium 3.8 3.3 - 5.1 mmol/L [facility] Chloride 107 96 - 108 mmol/L [facility] Carbon Dioxide 26 22 - 29 mmol/L [facility] Anion Gap 12 12 - 20 [facility] Urea Nitrogen (BUN) 7(L) 9 - 16 mg/dL [facility] Creatinine, Serum 0.70 0.5 - 1.4 mg/dL [facility] Estimated Glomerular Filt Rate >60 [facility] Comment:Chronic Kidney Disea se: Estimated GFR < 60 mL/min/1.68e7Cujscx Kidney Disease: Estimated GFR < 15 mL/min/1.73m2 Glucose 86 60 - 115 mg/dL [facility] Calcium 9.3 8.4 - 10.2 mg/dL [facility] Bilirubin, Total 0.4 0.0 - 1.0 mg/dL [facility] Aspartate Amino Transferase 55(H) 5 - 31 U/L [facility] Alanine Aminotransferase 20 0 - 31 U/L [facility] Total Protein 7.7 6.5 - 8.0 g/dL [facility] Albumin Level 4.5 3.5 - 5.0 g/dL [facility] Alkaline Phosphatase 78 39 - 117 U/L [facility] Blood Venous blood specimen / Unknown 11/20/2024 2:44 PM EDT 11/20/2024 3:59 PM EDT Enedelia Chahal MD LAB BLOOD ORDERAB LES Final Result Performing Organization Address City/State/[facility] Co de Phone Number [facility] [address] [place] [phone] * POCT Urine (11/20/2024 2:17 PM EDT) Preg Test, Ur Negative Negative, Indeterminate, None Detected, Invalid, Specimen unsatisfactory for evaluation, Weakly Positive QC Media Lot # [id number] Lot# Expiration Date [id number] Urine 11/20/2024 2:17 PM EDT Enedelia Chahal MD POINT OF CARE THIAGO T ENTER/EDIT ORDERABLES Final Result * POCT Urinalysis (11/20/2024 2:12 PM EDT) Color, UA Yellow Clarity, UA Clear Glucose, UA Negative Bilirubin, UA Negative Ketones, UA Negative Spec Grav, UA 1.015 Blood, UA Negative Negative, None Detected pH, UA 7.0 Protein, UA Negative Urobilinogen, UA 0.2 Leukocytes, UA Negative Negative, Rare, Trace Nitrite, UA Negative Negative, None Detected Appearance, UA clear QC Media Lot # [id number] Lot# Expiration Date [id number] Urine 11/20/2024 2:12 PM EDT Enedelia Chahal MD POINT OF CARE THIAGO T ENTER/EDIT ORDERABLES Final Result documented in this encounter Visit Diagnoses Diagnosis Vaginal discharge- Primary Leukorrhea, not specified as infective Dysuria documented in this encounter Additional Health Concerns Assessment Noted Time PHQ-9 Depression Total Score: 3 02/07/20 24 10:26 AM EDT documented as of this encounter Care Teams Family Service Center Director Relationship Specialty Start Date End Date Enedelia Joe MD [address] [place] [phone] PCP - General Internal Medicine 03/28/23 documented as of this encounter
--- OUTSIDE RECORDS SUMMARY | 2024-11-20 17:21 | XMS_ITS | Data Portability ---
Author Organization [employer] [address] Address [address] [place] [address] Assessment No assessment recorded. Plan of Treatment Reminders Order Date Submit Date Provider Last Modified By Organization Details Last Modified Time Details Appointments None recorded. Lab test, urine 2022 [facility]23 [facility], [address] [place] [address], [phone], 3 19:16:37 urinalysis, dipstick 2022 023 [facility] 2099_jose [facility], [address] [place] [address], [phone], 3 19:16:37 vaginal pathogens panel, DOMINGA+probe, vaginal fluid 2022 [address] [facility], [address] [place] [address], [address], 3 20:06:08 Referral None recorded. Procedures None recorded. Surgeries None recorded. Imaging None recorded. Medication Orders fluconazole 150 mg tablet 2022 023 [id number], [address] [facility], [place], [address], 3 19:16:39 Patient TargetsNo targets recorded. Patient Instructions Encounter Date Encounter Id Patient Instructions Last Modified By Organization Details Last Modified Time 08/27/2022 [id number] -Reviewed the various causes of vaginal problems. [...] - 2 score abnormal Not Available [facility] [place] [facility] [address] [place], [address], 08/30/2022 06:07:40 08/27/1908/29/2022 NUA B VAGIN ITIS PLUS (VG+) bvab 2 HIGH - 2 score abnormal Not Available [facility] [place] [facility] [address] [facility], [place], [address], 08/30/2022 06:07:40 08/27/1908/29/2022 NUA B VAGIN ITIS [...] Drug Admin istra tion. Not Available [facility] ([facility] [place] [facility] [address] [facility], [place], [address], 08/30/2022 06:07:40 08/27/19 23 08/29/2022 NUSWA B VAGIN ITIS PLUS (VG+) dima albicans, DOMINGA NEGATI VE negati ve Not Available [facility] ([facility] [place] [place] [facility] [address] [facility], [place], [address], 08/30/2022 06:07:40 08/27/19 23 08/29/2022 NUA B VAGIN ITIS PLUS (VG+) dima glabrata, DOMINGA NEGATI VE negati ve Not Available [facility] ([facility] [place] [place] [facility] [address] [facility], [place], [address], 08/30/2022 06:07:40 08/27/1908/30/2022 NUA B VAGIN ITIS PLUS (VG+) trich vag by DOMINGA NEGATI VE negati ve Not Available [facility] ([facility] [place] [place] [facility] [address] [facility], [place], [address], 08/30/2022 06:07:40 08/27/19 23 08/30/2022 NUA B VAGIN ITIS PLUS (VG+) chlamydia trachomatis, DOMINGA NEGATI VE negati ve Not Available [facility] ([facility] [place] [place] [facility] [address] [facility], [place], [address], 08/30/2022 06:07:40 08/27/1908/30/2022 NUA B VAGIN ITIS PLUS (VG+) neisseria gonorrhoeae, DOMINGA NEGATI VE negati ve Not Available [facility] ([facility] [place] [place] [facility] [address] [facility], [place], [address], 08/30/2022 06:07:40 08/27/19 23 08/27/2022 urina lysis , dipst ick Unknown Analyte Normal = light yellow Not Available [facility] [address], [place], [address], 08/27/2022 18:32:00 08/27/19 23 08/27/2022 urina lysis , dipst ick Unknown Analyte Yellow Not Available jose [address], [place], [address], 08/27/2022 18:32:00 08/27/19 23 08/27/2022 urina lysis , dipst ick Unknown Analyte Normal = clear Not Available jyotsna galarza [address], [place], [address], 08/27/2022 18:32:00 08/27/19 23 08/27/2022 urina lysis , dipst ick Unknown Analyte Slight ly Cloudy Not Available jyotsna galarza [address], [place], [address], 08/27/2022 18:32:00 08/27/19 23 08/27/2022 urina lysis , dipst ick Unknown Analyte Normal = negati ve Not Available jyotsna galarza [address], [place], [address], 08/27/2022 18:32:00 08/27/19 23 08/27/2022 urina lysis , dipst ick Unknown Analyte Negati ve Not Available jyotsna galarza [address], [place], [address], 08/27/2022 18:32:00 08/27/19 23 08/27/2022 urina lysis , dipst ick Unknown Analyte Normal = Negati ve Not Available jyotsna galarza [address], [place], [address], 08/27/2022 18:32:00 08/27/19 23 08/27/2022 urina lysis , dipst ick Unknown Analyte Negati ve Not Available jyotsna galarza [address], [place], [address], 08/27/2022 18:32:00 08/27/1908/27/2022 urina lysis , dipst ick Unknown Analyte Normal = Negati ve Not Available jyotsna galarza [address], [place], [address], 08/27/2022 18:32:00 08/27/19 23 08/27/2022 urina lysis , dipst ick Unknown Analyte Negati ve Not Available jyotsna galarza [address], [place], [address], 08/27/2022 18:32:00 08/27/19 23 08/27/2022 urina lysis , dipst ick Unknown Analyte Normal = 1.010, 1.015, 1.020 Not Available jyotsna galarza [address], [place], [address], 08/27/2022 18:32:00 08/27/19 23 08/27/2022 urina lysis , dipst ick Unknown Analyte 1.015 Not Available jose [address], [place], [address], 08/27/2022 18:32:00 08/27/19 23 08/27/2022 urina lysis , dipst ick Unknown Analyte Normal = Negati ve Not Available jyotsna galarza [address], [place], [address], 08/27/2022 18:32:00 08/27/19 23 08/27/2022 urina lysis , dipst ick Unknown Analyte Negati ve Not Available jyotsna galarza [address], [place], [address], 08/27/2022 18:32:00 08/27/19 08/27/2022 urina lysis , dipst ick Unknown Analyte Normal = 6.5, 7.0, 7.5, 8.0 Not Available jyotsna galarza [address], [place], [address], 08/27/2022 18:32:00 08/27/19 23 08/27/2022 urina lysis , dipst ick Unknown Analyte 7.0 Not Available [address], [place], [address], 08/27/2022 18:32:00 08/27/19 23 08/27/2022 urina lysis , dipst ick Unknown Analyte Normal = Negati ve Not Available [facility] [address], [place], [address], 08/27/2022 18:32:00 08/27/19 23 08/27/2022 urina lysis , dipst ick Unknown Analyte Negati ve Not Available jyotsna [address], [place], [address], 08/27/2022 18:32:00 08/27/19 23 08/27/2022 urina lysis , dipst ick Unknown Analyte Normal = 0.2, 1.0 Not Available jyotsna galarza [address], [place], [address], 08/27/2022 18:32:00 08/27/19 23 08/27/2022 urina lysis , dipst ick Unknown Analyte 0.2 E.U./d L Not Available 2099jyotsna galarza [address], [place], [address], 08/27/2022 18:32:00 08/27/19 23 08/27/2022 urina lysis , dipst ick Unknown Analyte Normal = Negati ve Not Available [facility] [address], [place], [address], 08/27/2022 18:32:00 08/27/19 23 08/27/2022 urina lysis , dipst ick Unknown Analyte Negati ve Not Available jyotsna [address], [place], [address], 08/27/2022 18:32:00 08/27/19 23 08/27/2022 urina lysis , dipst ick Unknown Analyte Normal = Negati ve Not Available jyotsna [address], [place], [address], 08/27/2022 18:32:00 08/27/19 23 08/27/2022 urina lysis , dipst ick Unknown Analyte Negati ve Not Available [address], [place], [address], 08/27/2022 18:32:00 08/27/19 23 08/27/2022 pregn thee test, urine Unknown Analyte Normal = Negati ve Not Available jyotsna [address], [place], [address], 08/27/2022 18:31:52 08/27/19 23 08/27/2022 pregn thee test, urine Unknown Analyte negati ve Not Available [address], [place], [address], 08/27/2022 18:31:52 Result Notes None recorded. Problems Name Problem SNOMED Code Status Onset Date Resolution Date Notes Provider Name and Address Organization Details Recorded Time Bacterial vaginosis 589442460 Active 023 LAVON [place], [place] - [facility] 18:33:35 Candidal otitis externa 85779972 Active 023 LAVON [place], [place] - [facility] 3 18:33:45 Anxiety 95650130 Active 023 LAVON CRENSHAWSAJI bart[place], [facility] 3 18:35:00 Problem Notes None recorded. [...] saturation in Arterial blood by Pulse oximetry Pain severity - 0-10 verbal numeric rating [Score] - Reported Body temperature Systolic blood pressure Diastolic blood pressure Provider Name and Address Organization Details Last Updated DateTime 3 162.56 cm 24 kg/m2 07926.9 3 g 19 /min 75 /min 99 % 99 % 0 98.6 [degF] 122 mm[Hg] 77 mm[Hg] LAVONZACHARY CAICEDO [facility] 3 18:38:46 Social History Question Answer Notes LastModified by Organizat ion Details LastModified Time Tobacco Smoking Status Never Smoker LAVON SASCHA dhruv, [facility] 08/27/2022 18:34:48 What Is Your Level [...] Diagnosis/Indication Diagnosis SNOMED-CT Code Diagnosis ICD10 Code Diagnosis Note [id number] [place] [address] [facility] [address] [place] [address] 08/27/2022 18:10:38 08/27/2022 19:17:30 Acute vaginitis 94353916 N76.0 Health Concerns Section Related Observation LastModified by Organization Detai ls LastModified Time None Recorded Concern Status LastModified by Organization Details LastModified Time None Recorded Advance Directives Directive None Recorded Payers Encounter Date Sequence Insurance Name Policy Number Policy Cheng Covered Member ID Cheng Member ID Guarantor Name 08/27/2022 1 MEDICAID-[place]: [facility] Jordyn R Badone [id number] Jordyn Badone Notes Date Note Type Note Provider Name and Address Organization Details Recorded Time 08/27/2022 text/html vaginal discharg e after unprotected sexual encounter . denies multiple partners. HX of developing yeast infection. Jose Antonio Wiggins NP [address] [place], [address], [place] - [facility] 08/27/2022 19:18:04 OBGyn Episode No OBEpisode recorded.
--- OUTSIDE RECORDS SUMMARY | 2024-11-20 17:21 | XMS_ITS | Encounter Summary ---
Author Organization [employer] Address [address] [place] [address] [address]t [place] [address] Care Team Providers Care Clay Puddler Name Role Phone Enedelia Joe MD Primary Care Pro vider Reason for Visit * Reason Onset Date Comments Appointment Request 10/12/2023 Encounter Details Date Type Department Care Team ([facility] st Contact Info) Description 10/12/2023 Telephone [facility] [address] [place], [place] [phone] Enedelia Joe MD [address] [place] [address] Appointment Request Social History Tobacco Use Types Packs/Day Years Used Date Smoking Tobacco: Never Passive Smoke Exposure: Never Smokeless Tobacco: Never Alcohol Use Standard Drinks/Week Comments Not Currently 3 (1 standard drink = 0.6 oz pure alcohol) beer or proseco twice a month Depression Answer Date Recorded Patient Health Questionnaire-9 Score 5 02/15/2023 Housing Stability Answer Date Recorded What is your housing situation today? I have barb landry 06/02/[address] you li ve. Do you have problems with any of the following? None of the above 06/02/2023 Food Insecurity Answer Date Recorded Within the past 12 months, y ou worried that your food would run out before you got money to buy more: Never True 06/02/2023 Within the past 12 months,th e food you bought just didn't last and you didn't have enough money to get more: Never True Transportation Answer Date Recorded In the past 12 months, has l ack of transportation kept you from medical appts, meetings, work or from getting things needed for daily living? No 06/02/2023 Utilities Answer Date Recorded In the past 12 months, has t he electric, gas, oil or water company threatened to shut off services in your home? No 06/02/2023 Depression Answer Date Recorded Patient Health Questionnaire-2 Score 0 02/15/2023 Comments No Sex and Gender Information Value Date Recorded Sex Assigned at Female 06/12/2022 10:37 AM EDT Legal Sex Female 10:37 AM EDT Gender Identity Female 06/12/2022 10:37 AM EDT Sexual Orientation Straight 02/07/2024 10 :35 AM EDT documented as of this encounter Miscellaneous Notes * Telephone Encounter - Fuentes Jackman - 10/12/2023 3:29 PM EST Tc from patient calling to cancel and reschedule appt for 10/23 documented in this encounter Plan of Treatment Upcoming Encounters Date Type Department Care Team (Late st Contact Info) Description 12/25/2024 1:30 PM EDT Office Visit [facility] [address] [place] [address] Enedelia Joe MD [address] [place] [address] 12/26/2024 3:00 PM EDT Office Visit [facility] [address] [place] [address] Amina Osborne documented as of this encounter Visit Diagnoses Not on filedocumented in this encounter Additional Health Concerns Assessment Noted Time PHQ-9 Depression Total Score: 5 02/16/20 23 10:42 AM EDT documented as of this encounter Care Teams Clay Puddler Relationship Specialty Start Date End Date Enedelia Joe MD [address] [place] [address] PCP - General Internal Medicine 03/28/23 documented as of this encounter
--- OUTSIDE RECORDS SUMMARY | 2024-11-20 17:21 | XMS_ITS | Encounter Summary ---
Author Organization [employer] Address [address] [place] [address] 7t [place] [address] Care Team Providers Care Milking Worker Name Role Phone Jaz Sams Primary Care Provider +1- [phone] Enedelia Joe MD Primary Care Pro vider Encounter Details Date Type Department Care Team (Latest Contact Info) Description 07/22/2021 Abstract [facility] Dental, Provider, DDS Social History Tobacco Use Types Packs/Day Years Used Date Smoking Tobacco: Never Assessed Comments Unknown Sex and Gender Information Value Date Recorded Sex Assigned at Female 06/12/2022 10:37 AM EDT Legal Sex Female 10:37 AM EDT Gender Identity Female 06/12/2022 10:37 AM EDT Sexual Orientation Straight 02/07/2024 10 :35 AM EDT documented as of this encounter Plan of Treatment Upcoming Encounters Date Type Department Care Team ( Contact Info) Description 12/25/2024 1:30 PM EDT Office Visit [facility] [address] [place] [address] Enedelia Joe MD [address] [place] [address] 12/26/2024 3:00 PM EDT Office Visit [facility] [address] [place] [address] Amina Osborne documented as of this encounter Visit Diagnoses Not on filedocumented in this encounter Care Teams Milking Worker Relationship Specialty Start Date End Date Jaz Sams FNP PCP - General Family Medicine 04/10/22 03/27/23 Enedelia Joe MD [address] [place] [address] PCP - General Internal Medicine 03/28/23 documented as of this encounter
--- OUTSIDE RECORDS SUMMARY | 2024-11-20 17:21 | XMS_ITS | Encounter Summary ---
Author Organization [employer] Address [address] [facility] 7t [place] [address] Care Team Providers Care Trace Evidence Technician Name Role Phone Enedelia Joe MD Primary Care Pro vider Reason for Visit * Reason Comments Med Refill Encounter Details Date Type Department Care Team ([facility] st Contact Info) Description 07/25/2024 Refill [facility] [address] [place] [address] Adrian Camejo MD [address] [place] [address] Skin rash Social History Tobacco Use Types Packs/Day Years [...] Description 12/25/2024 1:30 PM EDT Office Visit [facility] [address] [place] [address] Enedelia Joe MD [address] [place] [address] 12/26/2024 3:00 PM EDT Office Visit [facility] [address] [place] [address] Amina Osborne documented as of this encounter Visit Diagnoses Diagnosis Skin rash Rash and other nonspecific skin eruption documented in this encounter Additional Health Concerns Assessment Noted Time PHQ-9 Depression Total Score: 3 02/07/20 24 10:26 AM EDT documented as of this encounter Care Teams Trace Evidence Technician Relationship Specialty Start Date End Date Enedelia Joe MD [address] [place] [address] PCP - General Internal Medicine 03/28/23 documented as of this encounter
--- OUTSIDE RECORDS SUMMARY | 2024-11-20 17:21 | XMS_ITS | Encounter Summary ---
Author Organization [employer] Address [address] [place] [address] 7t [place] [address] Care Team Providers Care Head Of Strategy Name Role Phone Jaz Sams Primary Care Provider +1- [phone] Enedelia Joe MD Primary Care Pro vider Encounter Details Date Type Department Care Team (Latest Contact Info) Description 03/31/2022 Abstract [facility] Dental, Provider, DDS Social History Tobacco [...] Description 12/25/2024 1:30 PM EDT Office Visit [facility] [address] [place] [address] Enedelia Joe MD [address] [place] [address] 12/26/2024 3:00 PM EDT Office Visit [facility] [address] [place] [address] Amina Osborne documented as of this encounter Visit Diagnoses Not on filedocumented in this encounter Care Teams Head Of Strategy Relationship Specialty Start Date End Date Jaz Sams FNP PCP - General Family Medicine 04/10/22 03/27/23 Enedelia Joe MD [address] [place] [address] PCP - General Internal Medicine 03/28/23 documented as of this encounter
--- OUTSIDE RECORDS SUMMARY | 2024-11-20 17:21 | XMS_ITS | Encounter Summary ---
Author Organization [employer] Address [address] [facility] 7t [place] [address] Care Team Providers Care Business Case Analyst Name Role Phone Enedelia Joe MD Primary Care Pro vider Encounter Details Date Type Department Care Team (Latest Contact Info) Description 11/20/2024 Travel Social History Tobacco Use Types Packs/Day Years [...] Description 12/25/2024 1:30 PM EDT Office Visit [facility] [address] [place] [address] Enedelia Joe MD [address] [place] [address] 12/26/2024 3:00 PM EDT Office Visit [facility] [address] [place] [address] Amina Osborne documented as of this encounter Visit Diagnoses Not on filedocumented in this encounter Additional Health Concerns Assessment Noted Time PHQ-9 Depression Total Score: 3 02/07/20 24 10:26 AM EDT documented as of this encounter Care Teams Business Case Analyst Relationship Specialty Start Date End Date Enedelia Joe MD [address] [place] [address] PCP - General Internal Medicine 03/28/23 documented as of this encounter
--- OUTSIDE RECORDS SUMMARY | 2024-11-20 17:21 | XMS_ITS | Encounter Summary ---
Author Organization [employer] Address [address] [facility] 7t [place] [address] Care Team Providers Care Tub Mender Name Role Phone Jaz Sams QC ANALYST Primary Care Provider +1- [phone] Enedelia Joe MD Primary Care Pro vider Reason for Visit * Reason Comments Med Change Request Encounter Details Date Type Department Care Team (Late Contact Info) Description 11/26/2022 Refill [facility] [address] [place] [address] Jaz Sams FNP [address] [place] [address] [place] [address] Chronic left-sided thoracic back pain Social History Tobacco Use Types Packs/Day Years Used Date Smoking Tobacco: Never Smokeless Tobacco: Never Alcohol Use Standard Drinks/Week Comments Yes 3 (1 standard drink = 0.6 oz pur e alcohol) beer or proseco twice a month Comments No Sex and Gender Information Value Date Recorded Sex Assigned at Female 06/12/2022 10:37 AM EDT Legal Sex Female 10:37 AM EDT Gender Identity Female 06/12/2022 10:37 AM EDT Sexual Orientation Straight 02/07/2024 10 :35 AM EDT COVID-19 Exposure Response Date Recorded In the last 10 days, have yo u been in contact with someone who was confirmed or suspected to have Coronavirus/COVID-19? No / Unsure 11/24/2022 3:20 PM EDT documented as of this encounter Plan of Treatment Upcoming Encounters Date Type Department Care Team (Late Contact Info) Description 12/25/2024 1:30 PM EDT Office Visit [facility] [address] [place] [address] Enedelia Joe MD [address] [place] [address] 12/26/2024 3:00 PM EDT Office Visit [facility] [address] [place] [address] Amina Osborne documented as of this encounter Visit Diagnoses Diagnosis Chronic left-sided thoracic back pain documented in this encounter Additional Health Concerns Assessment Noted Time PHQ-9 Depression Total Score: 0 10/24/19 3:39 PM EDT documented as of this encounter Care Teams Tub Mender Relationship Specialty Start Date End Date Jaz Sams FNP PCP - General Family Medicine 04/10/22 03/27/23 Enedelia Joe MD [address] [place] [address] PCP - General Internal Medicine 03/28/23 documented as of this encounter
--- OUTSIDE RECORDS SUMMARY | 2024-11-20 17:21 | XMS_ITS | Encounter Summary ---
Author Organization [employer] Address [address] [facility] 7t [place] [address] Care Team Providers Care Protective Services Case Worker Name Role Phone Jaz Sams [facility] Primary Care Provider +1- [phone] Enedelia Joe MD Primary Care Pro vider Encounter Details Date Type Department Care Team ([facility] Contact Info) Description 12/01/2022 Orders Only [facility] [address] [place] [phone] Jaz Sams [address] Dept [place] [address] Social History Tobacco Use Types Packs/Day Years [...] 1:30 PM EDT Office Visit [facility] [address] [place] [address] Enedelia Joe MD [address] [place], [place] [phone] 12/26/2024 3:00 PM EDT Office Visit [facility] [address] [place] [address] Amina Osborne documented as of this encounter Visit Diagnoses Not on filedocumented in this encounter Additional Health Concerns Assessment Noted Time PHQ-9 Depression Total Score: 0 10/24/19 23 3:39 PM EDT documented as of this encounter Care Teams Protective Services Case Worker Relationship Specialty Start Date End Date Jaz Sams FNP PCP - General Family Medicine 04/10/22 03/27/23 Enedelia Joe MD [address] [place] [address] PCP - General Internal Medicine 03/28/23 documented as of this encounter
--- OUTSIDE RECORDS SUMMARY | 2024-11-20 17:21 | XMS_ITS | Clinical Summary ---
Author Organization [employer] Address [address] [place] [address] [address] [place] [address] Care Team Providers Care Cell Geneticist Name Role Phone Enedelia Joe MD Primary Care Pro vider Allergies No known active allergies Medications * This document contains information received from the source organization and may not represent a complete record from that organization. ferrous gluconate (Fergon) 324 (38 Fe) MG tabletIndications:I bryan deficiency Take 1 tablet (324 mg) by mouth every other day. 45 tablet 05/15/20 24 Active ibuprofen (IBU) 800 MG tablet 1 tablet every 8 hours with food for 7 days monthly for cramping 84 tablet 09/04/19 25 Active Additional Information Patient not taking.Reported on 11/20/2024 fluconazole (Diflucan) 150 MG tabletIndications:V aginal discharge Take 1 tablet (150 mg) by mouth 1 (one) time for 1 dose. 1 tablet 11/21/19 25 025 Active Sodium Fluoride 1.1 % creamIndications:De ntal caries,Dentin hypersensitivity [place] teeth for 2 minutes, morning and night. Spit, do not rinse. Do not eat or drink anything for 30 minutes following use. 112 g 3 06/26/20 24 025 Discontin ued(Other ) triamcinolone (Kenalog) 0.1 % creamIndications:Sk in rash Apply topically if needed in the morning and at bedtime (pain and swelling). 30 g 3 07/14/20 24 025 Discontin ued(Other ) fexofenadine (Darby) 180 MG tabletIndications:S kin rash Take 1 tablet (180 mg) by mouth if needed each day (Allergies). 30 tablet 07/14/20 24 025 Discontin ued(Other ) Active Problems Problem Noted Date Diagnosed Date Encounter for preventive health examination 07/13 Assessment & Plan (07/25/2024 2:10 PM EST): Discussed with patient re increase fresh fruit and vegetable intake. Counseled re moderate exercise as tolerated, up to 20min/d Patient feels safe at home. PAP smear: UTD, next one due 2026. Eye exam: UTD, next one due 2024. Lipids/FBS: UTD, next one due 2028. Vaccinations: Agreed to get Influenza immunization, advised to get Hep B and Covid booster. Dental visit: UTD, next one due January 2025. Recurrent candidiasis of vagina 03/28/2024 Assessment & Plan (07/25/2024 2:08 PM EST): Improved with boric acid vaginal suppository, but stopped taking it due to GI recommendation for fatty liver. Check vaginal swab today and treat PRN. She will FU with PCP. Marijuana use 02/07/2024 History of anorexia nervosa 02/07/2024 MEDRANO (nonalcoholic steatohepatitis) 02/07/2024 Vaginal discharge 01/01/2024 Assessment & Plan (07/25/2024 2:07 PM EST): See above. Assessment & Plan (01/22/2024 7:25 PM EDT): No evidence of DM. I will treat BV and candidiasis again with extended rx for candidiasis x 3 doses. Rx flagyl x 7d and fu BV results Advised to use Borax vaginal tablets x 30d Advised to avoid intercourse while being treated, avoid vaginal douches Schedule a fu appt with [employer] Assessment & Plan (01/01/2024 2:43 PM EDT): BV panel ordered today Patient will be contacted with results Dental plaque 03/27/2023 Depression, unspecified 12/19/2022 Overview (02/15/2023): PHQ9 score was 17 on 12/19/22. Met with team same day. Called [facility] phone number. Spoke with therapist a few times. Mood is improved. Still would like referral to therapist outpatient. Assessment & Plan (03/28/2023 10:27 AM EDT): Confirmed referral process 02/15/23 to [place] [facility] Gave pt phone number, she will call to check on referral Declines meds PHQ 9 score 5 on 02/15/23 F/u 6 months or sooner with new PCP Assessment & Plan (02/15/2023 9:12 PM EDT): Confirmed w/ team that referral has not been placed yet. Will place today. Declines meds PHQ 9 score 5 on 02/15/23 F/u 1-2 months or sooner PRN Anxiety disorder, unspecified 12/19/2022 Overview (02/15/2023): PHQ9 score was 17 on 12/19/22. Met with team same day. Called [facility] phone number. Spoke with therapist a few times. Mood is improved. Still would like referral to therapist outpatient. Assessment & Plan (03/28/2023 10:27 AM EDT): Confirmed referral process 02/15/23 to [place] [facility] Gave pt phone number, she will call to check on referral Declines meds PHQ 9 score 5 on 02/15/23 F/u 6 months or sooner with new PCP Assessment & Plan (02/15/2023 9:12 PM EDT): Confirmed w/ team that referral has not been placed yet. Will place today. Declines meds PHQ 9 score 5 on 02/15/23 F/u 1-2 months or sooner PRN Intractable menstrual migraine 10/23/2022 Raynaud's disease without gangrene 10/23/2022 Health care maintenance 10/23/2022 Resolved Problems Problem Noted Date Diagnosed Date Resolved Date UTI symptoms 01/01/2024 02/07/2024 Oligomenorrhea 03/09/2021 02/07/2024 Dyshidrotic eczema 08/31/2015 3 Encounters Date Type Department Care Team Description 11/20/2024 2:15 PM EDT Office Visit [facility] [address] [place] [address] Enedelia Joe MD Vaginal discharge (Primary Dx); Dysuria 11/20/2024 Travel 11/19/2024 Telephone [facility] [address] [place] [address] Enedelia Joe MD Nurse Triage 10/31/2024 2:00 PM EDT Office Visit [facility] [address] [place] [address] Michael Jj DMD Dental caries (Primary Dx) 10/24/[address] [address] Enedelia Joe MD May recall 09/25/2024 8:00 AM EST Office Visit [facility] [address] [place] [address] Michael Jj DMD Dental caries (Primary Dx) 09/04/2024 9:45 AM EST Office Visit [facility] [address] [place] [address] Lucian Hedrick CNM Menorrhagia with regular cycle (Primary Dx); Dysmenorrhea 09/04/2024 Travel 08/27/2024 Telephone [facility] [address] [place] [address] Enedelia Joe MD Nurse Triage from Last 3 Months Immunizations Name Administration Dates Next Due DTaP 08/12/2002, 9,1997,11/04,1997 DTaP / HiB / IPV 11/09/1998, 8,1997,11/04 HPV, Quadrivalent 07/29/2009,03/26/2009,01/23/20 09 Hep B, Adolescent or Pediatric 04/08/1998,1996,1997 Hib (HbOC) 11/09/1998, 8,1997,11/04 IPV 08/12/2002, 8,1997,09/08 Influenza injectable quadriv alent preservative free 07/28/2019,04/15/2016 Influenza, IIV3, injectable 08/31/2015,1 09/24/2011,06/06/2011,08/09,05/25/2008,07/13/2007,06/17/2005 ,07/21/2003,08/13/2000 Influenza, Unspecified 04/27/2016 Influenza, injectable, quadr ivalent, preservative free, pediatric 05/11/2014,05/13/2010 Influenza, seasonal, injecta ble, preservative free 07/25/2024,04/17/2013 MMR 06/26/2001,10/11/1998 Meningococcal B, Omv 07/28/2019,06/29/2017 Meningococcal MCV4P ACYW-135 09/04/2014,03/26/20 09 Moderna Covid-19 Vaccine 12+ 01/12/2021,12/16/19 21 Novel buaqkirfe-H3W2-93, preservative-free 07/23/2009 Pneumococcal Conjugate PCV 7 04/11/2000 Tdap 07/28/2019,01/22/2009 Varicella 08/09/2009,08/13/1998 Family History Medical History Relation Name Comments DM2 Father Hypertension Father Hypertension Mother Relation Name Status Comments Father Mother Social History Tobacco Use Types Packs/Day Years Used Date Smoking Tobacco: Never Passive Smoke Exposure: Current Smokeless Tobacco: Never Tobacco Cessation:Counseling Given: Not Answered Comments:Started smoking at 24 y old twice [...] Orientation Straight 02/07/2024 10 :35 AM EDT Last Filed Vital Signs Vital Sign Reading Time Taken Comments Blood Pressure 147/93 11/20/2024 2:00 PM EDT Pulse 58 11/20/2024 2:00 PM EDT Temperature 37 ??C (98.6 ??F) 11/20/2024 2:00 PM EDT Respiratory Rate 16 11/20/2024 2:00 PM EDT Oxygen Saturation 100% 09/04/2024 9:57 AM EST Inhaled Oxygen Concentration - - Weight 67.3 kg (148 lb 6.4 oz) 09/04/2024 9:57 A M EST Height 162.6 cm (5' 4 ) 11/20/2024 2:00 PM EDT Body Mass Index 25.47 09/04/2024 9:57 AM EST Plan of Treatment Upcoming Encounters Date Type Department Care Team (Late st Contact Info) Description 12/25/2024 1:30 PM EDT Office Visit [facility] [address] [place] [phone] Enedelia Joe MD [address] [place] [address] 12/26/2024 3:00 PM EDT Office Visit [facility] [address] [place] [address] Amina Osborne Health Maintenance Due Date Last Done Comments Alcohol/Substance Use Screening 2009 Hepatitis A Vaccines (1 of 2 - Risk 2-dose series) 2016 COVID-19 Vaccine ( season) 2024 01/12/2021, 12/15/2020 Dental X-Ray: Full Mouth 07/23/2024 07/22/2021 Dental Oral Exam 12/25/2024 06/26/2024, 04/2024, 03/27/2023, Additional history exists Dental Prophylaxis 12/25/2024 06/26/2024, 0 09/21/2023, 03/27/2023, Additional history exists Depression Screening 02/06/2025 02/07/2024, 02/07/20 24 SDOH Screening 02/06/2025 02/07/2024 Dental X-Ray: Bitewings 06/27/2025 06/26/20 24, 03/27/2023, 03/31/2022, Additional history exists Family Planning (PISQ) 09/04/2025 09/04/2024 Tobacco Screening 10/31/2025 10/31/2024 Pap Smear 11/04/2026 11/05/2023, 04/0 12/2020, 11/12/2020 DTaP/Tdap/Td Vaccines (8 - Td or Tdap) 07/28/2029 07/28/2019, 01/22/2009, 08/12/2002, Additional history exists Zoster Vaccines (1 of 2) 2047 RSV Patients and Patients Aged 60 years or older (1 - 1-dose 75+ series) 2072 Hepatitis B Vaccines Completed 04/08/1998, 1997, 1997 HIB Vaccines Completed 11/09/1998, 10/13, 07/19/1998, Additional history exists Pneumococcal Vaccine: Pediatrics (0 to 5 Years) and At-Risk Patients (6 to 49) Years) Aged Out 04/11/2000 No longer eligible based on patient's age to complete this topic IPV Vaccines Completed 08/12/2002, 10/13, 07/19/1998, Additional history exists HPV Vaccines Completed 07/29/2009, 03/13, 01/22/2009 Meningococcal Vaccine Completed 09/04/2014, 009 HIV Screening Completed 03/26/2024, 02/2023, 10/11/2022, Additional history exists Hepatitis C Screening Completed 03/26/2024 , 04/10/2023, 02/01/2022, Additional history exists Influenza Vaccine Completed 07/25/2024, , 04/27/2016, Additional history exists RSV under 20 months Aged Out No longe r eligible based on patient's age to complete this topic Rotavirus Vaccines Aged Out No longer eligible based on patient's age to complete this topic Procedures Procedure Name Priority Date/Time Associated Diagnosis Comments COMPREHENSIVE METABOLIC PANEL Routine 11/20/2024 2:44 PM EDT Vaginal discharge APTT Routine 11/20/2024 2:44 PM EDT Menorrhagia with regular cycle PROTHROMBIN TIME-INR Routine 11/20/2024 2:44 PM EDT Menorrhagia with regular cycle IRON AND TOTAL IRON BINDING CAPACITY Routine 11/20/2024 2:44 PM EDT Menorrhagia with regular cycle FERRITIN Routine 11/20/2024 2:44 PM EDT Menorrhagia with regular cycle CBC WITH AUTO DIFFERENTIAL Routine 11/20/2024 2:44 PM EDT Menorrhagia with regular cycle POCT , URINE Routine 11/20/2024 2:17 PM EDT Dysuria POCT URINALYSIS DIPSTICK Routine 11/20/2024 2:12 PM EDT Dysuria CASE PRESENTATION, DETAILED AND EXTENSIVE TREATMENT PLANNING Routine 10/31/2024 2:00 PM EDT Dental caries 12 DO RESIN-BASED COMPOSITE - 2 SURF, POSTERIOR Routine 10/31/2024 2:00 PM EDT Dental caries 31 LAURO RESIN-BASED COMPOSITE - 2 SURF, POSTERIOR Routine 10/31/2024 2:00 PM EDT Dental caries 13 MO RESIN-BASED COMPOSITE - 2 SURF, POSTERIOR Routine 10/31/2024 2:00 PM EDT Dental caries CASE PRESENTATION, DETAILED AND EXTENSIVE TREATMENT PLANNING Routine 09/25/2024 8:00 AM EST Dental caries 19 MOD RESIN-BASED COMPOSITE - 3 SURF, POSTERIOR Routine 09/25/2024 8:00 AM EST Dental caries POCT , URINE Routine 09/04/2024 10:48 AM EST Menorrhagia with regular cycle POCT HEMOGLOBIN Routine 09/04/2024 10:17 AM EST Menorrhagia with regular cycle PROPHYLAXIS - ADULT Routine 06/26/2024 9 :00 AM EST Dental caries Dentin hypersensitivity BITEWINGS - 4 RADIOGRAPHIC IMAGES Routine 06/26/2024 9:00 AM EST Dental caries Dentin hypersensitivity PERIODIC ORAL EVALUATION - ESTABLISHED PATIENT Routine 06/26/2024 9:00 AM EST Dental caries Dentin hypersensitivity HEPATITIS C AB W/REFL TO HCV RNA, QN, PCR Routine 03/26/2024 4:22 PM EDT Annual physical exam HIV 1/2 ANTIGEN/ANTIBODY, FOURTH GENERATION W/RFL Routine 03/26/2024 4:22 PM EDT Annual physical exam PAP SMEAR Routine 11/05/2023 10:05 AM EDT Cervical cancer screening INTRAORAL - COMPLETE SERIES OF RADIOGRAPHIC IMAGES Routine 07/22/2021 12:00 AM EST from Last 3 Months or Most Recently Relevant to Health Maintenance Results * CBC auto differential (11/20/2024 2:44 PM EDT) White Blood Count 8.4 4.8 - 10.8 X10*3/uL [facility] Red Blood Count 4.69 4.20 - 5.50 X10*6/uL [facility] Hemoglobin 13.7 12.0 - 16.0 g/dl [facility] Hematocrit 41.7 37.0 - 47.0 % [facility] Mean Corpuscular Volume 88.9 80.0 - 98.0 fL [facility] Mean Corpuscular Hemoglobin 29.2 27.0 - 33.0 pg [facility] Mean Corpuscular HGB Conc 32.9 31.0 - 35.0 g/dl [facility] Red Cell Distribution Width 12.1 11.0 - 16.0 % [facility] Platelet Count 375 160 - 400 X10*3/uL [facility] Mean Platelet Volume 10.2 9.4 - 12.3 fL [facility] Neutrophils Percent Auto 52.8 45 - 73 % [facility] Imm Gran Pct Auto 0.2 0.0 - 0.4 % [facility] Lymphocytes Percent Auto 39.5 20 - 40 % [facility] Monocytes Percent Auto 5.5 2 - 11 % [facility] Eosinophils Percent Auto 1.3 0 - 4 % [facility] Basophils Percent Auto 0.7 0 - 2 % [facility] NRBC Pct Auto 0.0 0.0 - 0.2 /100WBC [facility] Neutrophils Absolute Auto 4.4 2.0 - 8.3 x10*3/uL [facility] Imm Gran Abs Auto 0.02 0.00 - 0.03 X10*3/uL [facility] Lymphocytes Absolute Auto 3.3 1.2 - 4.9 X10*3/uL [facility] Monocytes Absolute Auto 0.5 0.1 - 1.2 X10*3/uL [facility] Eosinophils Absolute Auto 0.1 0.0 - 0.4 X10*3/uL [facility] Basophils Absolute Auto 0.1 0.0 - 0.2 X10*3/uL [facility] NRBC Abs Auto 0.000 0.0 - 0.012 X10*3/uL [facility] Blood Venous blood specimen / Unknown 11/20/2024 2:44 PM EDT 11/20/2024 3:59 PM EDT Lucian Hedrick [facility] BLOOD ORDERABLES Matilda l Result Performing Organization Address City/[facility]/ZIP Co de Phone Number [facility] [address] [place] [phone] * Iron And Total Iron Binding Capacity (11/20/2024 2:44 PM EDT) Iron 57 30 - 160 mcg/dL [facility] Total Iron Binding Capacity 287 228 - 428 mcg/dL [facility] Percent Iron Saturation 20 15 - 50 % [facility] Unsaturated Iron Binding 230 ug/dL [facility] Blood Venous blood specimen / Unknown 11/20/2024 2:44 PM EDT 11/20/2024 3:59 PM EDT [facility] Matilda l Result Performing Organization Address [facility] Co de Phone Number [facility] [address] [place] [phone] * Partial Thromboplastin Time, Activated (APTT) (11/20/2024 2:44 PM EDT) [facility] Partial Thromboplastin Time 32.6 26.0 - 36.8 SEC [facility] Comment:For information rega rding the monitoring of direct thrombininhibitors, please refer to Pharmacy. Blood Venous blood specimen / Unknown 11/20/2024 2:44 PM EDT 11/20/2024 3:59 PM EDT Lucian Hedrick [facility] BLOOD ORDERABLES Matilda l Result Performing Organization Address [facility] Co de Phone Number [facility] [address] [place] [phone] * Prothrombin Time-INR (11/20/2024 2:44 PM EDT) Pathologist [facility] Prothrombin Time 11.2 10.9 - 12.4 SEC [facility] INTERNATIONAL NORM RATIO 1.0 0.9 - 1.1 [facility] Comment:INTERNATIONAL NORMAL IZED RATIO (INR) REFERENCE RANGES Reference RangeFor patients not on anticoagulant therapy: 0.9 - 1.1INR ranges for oral anticoagulanttherapy:For prevention and treatment of venous thrombosis and pulmonary embolism: 2.0 - 3.0For acute myocardial infarction with aspirin therapy: 2.0 - 3.0For acute myocardial infarction without aspirin therapy: 3.0 - 4.0For patients with mechanical prosthetic heart valves: 2.5 - 3.5 Blood Venous blood specimen / Unknown 11/20/2024 2:44 PM EDT 11/20/2024 3:59 PM EDT [facility] LAB BLOOD ORDERABLES Matilda l Result Performing Organization Address [facility] Co de Phone Number [facility] [address] [place] [phone] * Ferritin (11/20/2024 2:44 PM EDT) Pathologist [facility] Ferritin 28 10 - 122 ng/mL [facility] Blood Venous blood specimen / Unknown 11/20/2024 2:44 PM EDT 11/20/2024 3:59 PM EDT [facility] BLOOD ORDERABLES Matilda l Result Performing Organization Address [facility] Co de Phone Number [facility] [address] [place] [phone] * (ABNORMAL) Comprehensive Metabolic Panel (11/20/2024 2:44 PM EDT) Pathologist [facility] Sodium 141 135 - 145 mmol/L [facility] Potassium 3.8 3.3 - 5.1 mmol/L [facility] Chloride 107 96 - 108 mmol/L [facility] Carbon Dioxide 26 22 - 29 mmol/L [facility] Anion Gap 12 12 - 20 [facility] Urea Nitrogen (BUN) 7(L) 9 - 16 mg/dL [facility] Creatinine, Serum 0.70 0.5 - 1.4 mg/dL [facility] Estimated Glomerular Filt Rate >60 [facility] Comment:Chronic Kidney Disea se: Estimated GFR < 60 mL/min/1.74x3Nsayjz Kidney Disease: Estimated GFR < 15 mL/min/1.73m2 Glucose 86 60 - 115 mg/dL [facility] Calcium 9.3 8.4 - 10.2 mg/dL [facility] Bilirubin, Total 0.4 0.0 - 1.0 mg/dL [facility] Aspartate Amino Transferase 55(H) 5 - 31 U/L [facility] Alanine Aminotransferase 20 0 - 31 U/L [facility] Total Protein 7.7 6.5 - 8.0 g/dL [facility] Albumin Level 4.5 3.5 - 5.0 g/dL [facility] Alkaline Phosphatase 78 39 - 117 U/L [facility] Blood Venous blood specimen / Unknown 11/20/2024 2:44 PM EDT 11/20/2024 3:59 PM EDT Enedelia Chahal MD LAB BLOOD ORDERAB LES Final Result [facility] [address] [place] [phone] * POCT Urine (11/20/2024 2:17 PM EDT) Only the most recent of2 resultswithin the time period is included. Preg Test, Ur Negative Negative, Indeterminate, None Detected, Invalid, Specimen unsatisfactory for evaluation, Weakly Positive QC Media Lot # [id number] Lot# Expiration Date [id number] Urine 11/20/2024 2:17 PM EDT Enedelia Chahal [...] Media Lot # [id number] Lot# Expiration Date 605, Urine 11/20/2024 2:12 PM EDT Enedelia Chahal MD POINT OF CARE THIAGO T ENTER/EDIT ORDERABLES Final Result * POCT hemoglobin docked device (09/04/2024 10:17 AM EST) Hemoglobin 12.7 12.0 - 15.0 QC Media Lot # [id number] Lot# Expiration Date Blood 09/04/2024 10:1 7 AM EST Lucian Hedrick CNM POINT OF CARE TEST ENTER/ EDIT ORDERABLES Final Result * Hepatitis C Antibody with Reflex to HCV, RNA, Quantitative, Real-Time PCR (03/26/2024 4:22 PM EDT) Hepatitis C Antibody Nonreactive Nonreactive [facility] Comment:Antibodies to HCV no t detected; does not exclude early acuteHCV infection. Blood Venous blood specimen / Unknown 03/26/2024 4:22 PM EDT 03/26/2024 5:38 PM EDT Enedelia Chahal MD LAB BLOOD ORDERAB LES Final Result [facility] [address] [place] [phone] * HIV-1/2 Antigen and Antibodies, Fourth Generation, with Reflexes (03/26/2024 4:22 PM EDT) HIV AB/AG Nonreactive Nonreactive [facility] Comment:HIV-1 p24 Ag and/or HIV-1/HIV-2 Ab not detected.A test result that is nonreactive does not exclude thepossibility of exposure to or infection with HIV-1 and/orHIV-2. Nonreactive results in this assay for individualswith prior exposure to HIV-1 and/or HIV-2 may be due toantigen and antibody levels that are below the limit ofdetection of this assay.The [employer] HIV Ag/Ab Combo assay result andsupplemental assay results should be interpreted inconjunction with the patient's clinical presentation,history and other laboratory results. If the results areinconsistent with clinical evidence, additional testing issuggested to confirm the result. Blood Venous blood specimen / Unknown 03/26/2024 4:22 PM EDT 03/26/2024 5:38 PM EDT us Enedelia Chahal MD LAB BLOOD ORDERAB LES Final Result [facility] [address] [place] [address] [phone] * Pap Smear (11/05/2023 10:05 AM EDT) Swab Cervix uteri structure / Unknown 11/05/2023 10:05 AM EDT 11/06/2023 11:50 AM EDT Narrative [facility] - 11/18/2023 5:50 PM EDT ----- ------- Name: Badone,Jordyn ?Age/Sex: 28/F ? : 1995 Unit#: [id number] ?? Attend Dr: LUCIAN HEDRICK CNM ?Re11/05/23 ?Status: DEP REF ? Location: [facility] ? Disch: ? ----- ------- SPEC : [id number] ? RECD: 11/06/23-1150 ? STATUS: ??SOUT ? REQ NUM: [id number] ? SARAH BETH: 11/05/23-1005 ? SUBM DR: LUCIAN HEDRICK CNM ? ENTERED: ??11/06/23-4854 ?SP TYPE: Pap Smr ?OTHR DR: ? ORDERED: ??Pap Smear ? Interpretation ?? Satisfactory for evaluation. ?? Negative for intraepithelial lesion or malignancy. ?Clinical Information LMP: Unknown date Previous PAP test: Unknown date/findings ? Material Received ?? ThinPrep-Vaginal/Cervical ----- ------- Signed (signature on file) Clementine Rose Waldo 11/18/231749 ? ----- ------- ? END OF REPORT ? us Lucian Hedrick [facility] CYTOLOGY ORDERABLES F inal Result [facility] [address] [place] [address] [phone] from Last 3 Months or Most Recently Relevant to Health Maintenance Insurance [facility] PARTIAL [employer] OPEN ACCESS [facility] PARTIAL (MEDICAID) [address] [place] [address] [address] [place] [address] Care Teams Cell Geneticist Relationship Specialty Start Date End Date Enedelia Joe MD [address] [place] [address] PCP - General Internal Medicine 03/28/23
--- OUTSIDE RECORDS SUMMARY | 2024-11-20 17:21 | XMS_ITS | Encounter Summary ---
Author Organization [employer] Address [address] [place] [address] [address] [place] [address] Care Team Providers Care Adult Protective Caseworker Name Role Phone Jaz Sams Carol ROPER Primary Care Provider [phone]- [phone] Enedelia Joe MD Primary Care Pro vider Encounter Details Date Type Department Care Team (Late st Contact Info) Description 03/14/2023 Orders Only [facility] [address], [place] [phone] Ken Ramires MD [address] [place] [address] Social History Tobacco Use Types Packs/Day Years Used Date Smoking Tobacco: Never Passive Smoke Exposure: Never Smokeless Tobacco: Never Alcohol Use Standard Drinks/Week Comments Yes 3 (1 standard drink = 0.6 oz pur e alcohol) beer or proseco twice a month Depression Answer Date Recorded Patient Health Questionnaire-9 Score 5 02/15/2023 Depression Answer Date Recorded Patient Health Questionnaire-2 [...] suspected to have Coronavirus/COVID-19? No / Unsure 02/15/2023 10:33 AM EDT documented as of this encounter Plan of Treatment Upcoming Encounters Date Type Department Care Team (Late st Contact Info) Description 12/25/2024 1:30 PM EDT Office Visit [facility] MEDICINE [address] [place] [address] Enedelia Joe MD [address] [place] [address] 12/26/2024 3:00 PM EDT Office Visit [facility] ADULT DENTAL [address] [place] [address] Amina Osborne documented as of this encounter Visit Diagnoses Not on filedocumented in this encounter Additional Health Concerns Assessment Noted Time PHQ-9 Depression Total Score: 5 02/16/20 23 10:42 AM EDT documented as of this encounter Care Teams Adult Protective Caseworker Relationship Specialty Start Date End Date Jaz Sams FNP PCP - General Family Medicine 04/10/22 03/27/23 Enedelia Joe MD [address] [place] [id number] PCP - General Internal Medicine 03/28/23 documented as of this encounter
--- OUTSIDE RECORDS SUMMARY | 2024-11-20 17:21 | XMS_ITS | Encounter Summary ---
Author Organization [employer] Address [address] [place] [address] [address] [place] [address] Care Team Providers Care Beveller Operator Name Role Phone Enedelia Joe MD Primary Care Pro vider Reason for Visit * Reason Onset Date Comments Nurse Triage 02/05/2024 Encounter Details Date Type Department Care Team (Late st Contact Info) Description 02/05/2024 Telephone [facility] MED[facility] [address] [place], [place] [phone] Enedelia Joe MD [address] [place] [address] Nurse Triage Social History Tobacco Use Types [...] your housing situation today? I have barb gris 02/07/[address] you li [...] Recorded Patient Health Questionnaire-2 Score 0 02/07/2024 Comments No Sex and Gender Information Value Date Recorded Sex Assigned at Female 06/12/2022 10:37 AM EDT Legal Sex Female 10:37 AM EDT Gender Identity Female 06/12/2022 10:37 AM EDT Sexual Orientation Straight 02/07/2024 10 :35 AM EDT documented as of this encounter Miscellaneous Notes * Telephone Encounter - Shirley Butts RN - 02/05/2024 11:08 AM EDT Triage call Pt reports vaginal symptoms which began in November, Pt has been seen in [facility] 12/11/23, 12/13/23, 01/01/24, 01/22/24, all for the same reason. Pt reports some vaginal itchiness, slight drainage and some urinary symptoms of transient burning with urination which comes and goes. Pt reports drinking cranberry juice has helped to relieve urinary burning. Pt is encouraged to drink 6-8 glasses liquid daily, such as decaf tea, water with half gator steph, juices. Pt is advised to reduce coffee if a coffee drinker. Pt agrees. Pt was prescribed boric acid vaginal 600mg supp 01/22/24 and has not received or started them. Pt is advised to contact pharmacy to obtain and start this prescription. It is co nfirmed on chart that pharmacy did receive the prescription. Pt agrees to do this. Pt requests to see [employer], apt requested for 02/07/24. Apt with DENISSE Robledo 02/07/24 at 100pm scheduled. Pt insurance is verified as active prior to booking. Pt agrees with disposition. Protocol Used: Vaginal Symptoms (Adult) Protocol-Based Disposition: See in Office or Video Visit within 3 Days Positive Triage Questions: * Symptoms of a yeast infection (i.e., itchy, white discharge, not bad smelling) and not improved > 3 days following Care Advice * Patient wants to be seen * All higher-acuity triage questions were negative Care Advice Discussed: * Reasons To Call Back - Vaginal discharge becomes yellow or green - Vaginal discharge becomes foul smelling or itchy - Fever or abdomen pain occur - You become worse * Telephone Encounter - Billie Uriostegui - 02/05/2024 10:35 AM EDT Symptom: Vaginal and urination symptoms - Not Bleeding Outcome: Schedule an appointment to be seen within 24 hours Reason: Caller denied all higher acuity questions The caller accepted this outcome documented in this encounter Plan of Treatment Upcoming Encounters Date Type Department Care Team (Late st Contact Info) Description 12/25/2024 1:30 PM EDT Office Visit [facility] [address] [place] [address] Enedelia Joe MD [address] [place] [phone] 12/26/2024 3:00 PM EDT Office Visit [facility] ADULT DENTAL [address] [place] [address] Amina Osborne documented as of this encounter Visit Diagnoses Not on filedocumented in this encounter Additional Health Concerns Assessment Noted Time PHQ-9 Depression Total Score: 5 02/16/20 10:42 AM EDT documented as of this encounter Care Teams Beveller Operator Relationship Specialty Start Date End Date Enedelia Joe MD [address] [place] [address] PCP - General Internal Medicine 03/28/23 documented as of this encounter
[2024-11-21 03:51] LABS: Syphilis Screen Nonreactive (Nonreactive)
[2024-11-21 04:10] LABS: CT PCR NOT DETECTED (Not Detect.); NG PCR NOT DETECTED (Not Detect.)
[2024-11-21 04:17] LABS: HBsAGNum1 0.29 S/CO (0.00-0.99); HIV AB/AG Nonreactive (Nonreactive); HIV Num 1 0.06 S/CO (0.00-0.99); Hepatitis B Surface Antigen Negative (Negative); ~Hepatitis C Antibody Nonreactive (Nonreactive)
[2024-11-21 10:26] LABS: Bacterial Vaginosis PCR POSITIVE (Negative); Candida Group PCR DETECTED (Not Detect); Candida glab krusei PCR NOT DETECTED (Not Detect); Trichomonas vaginalis PCR NOT DETECTED (Not Detect)
== END 2024-11-20 14:42 | disposition home or self-care (01) ==
LOC: HO.HHCL 14:41
PROVIDERS: Advanced Practice Midwife; Visit Provider Student in an Organized Health Care Education/Training Program
DX: N89.8 Other specified noninflammatory disorders of vagina (principal); N92.0 Excessive and frequent menstruation with regular cycle
CPT/HCPCS: 36415; 80053; 81515; 82728; 83540; 85025; 85610; 85730; 86780; 86803; 87340; 87389; 87491; 87591

== ENCOUNTER 2024-11-27 12:27 | Outpatient (REF) | payer OTHER, SELFPAY ==
--- OUTSIDE RECORDS SUMMARY | 2024-11-27 15:13 | XMS_ITS | Clinical Summary ---
Author Organization [employer] Address [address] [place] [address] 7[address] [place] [address] Care Team Providers Care Homicide Detective Name Role Phone Enedelia Joe MD Primary [...] Additional Information Patient not taking.Reported on 11/20/2024 metroNIDAZOLE (Flagyl) 500 MG tablet Take 1 tablet (500 mg) by mouth 2 times daily for 7 days. 14 tablet 11/22/19 25 025 Active Sodium Fluoride 1.1 % creamIndications:De ntal caries,Dentin hypersensitivity Curlew teeth for 2 minutes, morning and night. [...] tablet 07/14/20 24 025 Discontin ued(Other ) fluconazole (Diflucan) 150 MG tabletIndications:V aginal discharge Take 1 tablet (150 mg) by mouth 1 (one) time for 1 dose. 1 tablet 11/21/19 25 025 Active Problems Problem Noted Date Diagnosed Date Recurrent candidiasis of vagina 03/28/2024 Assessment & [...] vaginal douches Schedule a fu appt with [facility] Assessment & Plan (01/01/2024 2:43 PM EDT): BV panel ordered today Patient will be contacted with results Dental plaque 03/27/2023 Depression, unspecified 12/19/2022 Overview (02/15/2023): PHQ9 score was 17 on 12/19/22. Met with team same day. Called [facility] phone number. Spoke with therapist a few times. Mood is improved. Still would like referral to therapist outpatient. Assessment & Plan (03/28/2023 10:27 AM EDT): Confirmed referral process 02/15/23 to [facility] Gave pt phone number, she will call to check on referral Declines meds PHQ 9 score 5 on 02/15/23 F/u 6 months or sooner with new PCP Assessment & Plan (02/15/2023 9:12 PM EDT): Confirmed w/ BH team that referral has not been placed yet. Will place today. Declines meds PHQ 9 score 5 on 02/15/23 F/u 1-2 months or sooner PRN Anxiety disorder, unspecified 12/19/2022 Overview (02/15/2023): PHQ9 score was 17 on 12/19/22. Met with BH team same day. Called [facility] phone number. Spoke with therapist a few times. Mood is improved. Still would like referral to therapist outpatient. Assessment & Plan (03/28/2023 10:27 AM EDT): Confirmed referral process 02/15/23 to [facility] Gave pt phone number, she [...] Encounters Date Type Department Care Team Description 11/27/2024 Telephone [facility] [address] [place] [address] Enedelia Joe MD Nurse Triage 11/21/2024 Orders Only [facility] [address] [place] [address] Enedelia Joe MD MEDRANO (nonalcoholic steatohepatitis) (Primary Dx) 11/20/2024 2:15 PM EDT Office Visit [address] [address] Enedelia Joe MD Vaginal discharge (Primary Dx); Dysuria; Dietary counseling; Exercise counseling; MEDRANO (nonalcoholic steatohepatitis); Recurrent candidiasis of vagina; Health care maintenance 11/20/2024 Orders Only [address] [address] Enedelia Joe MD 11/20/2024 Travel 11/19/[address] [address] Enedelia Joe MD Nurse Triage 10/31/2024 2:00 PM EDT Office Visit [facility] ADULT DENTAL [address] [place] [address] Michael Jj DMD Dental caries (Primary Dx) 10/24/2024 Telephone [facility] [address] [place] [address] Enedelia Joe MD May recall 09/25/2024 8:00 AM EST Office Visit [facility] ADULT DENTAL [address] [place] [address] Michael Jj DMD Dental caries (Primary Dx) 09/04/2024 9:45 AM EST Office Visit [facility] [address] [place] [address] Lucian Hedrick CNM Menorrhagia with regular cycle (Primary Dx); Dysmenorrhea 09/04/2024 Travel from Last 3 Months Immunizations Name Administration [...] Moderna Covid-19 Vaccine 12+ 01/12/2021,12/16/19 21 Novel [id number], preservative-free 07/23/2009 Pneumococcal Conjugate PCV 7 04/11/2000 [...] Description 12/25/2024 1:30 PM EDT Office Visit [facility] [address] [place] [address] Enedelia Joe MD [address] [place], [place] [phone] 12/26/2024 3:00 PM EDT Office Visit [facility] ADULT DENTAL [address] [place], [place] [phone] Amina Osborne 01/01/2025 11:30 AM EDT Office Visit [facility] [address] [place], [place] [phone] Lucian Hedrick, DENISSE [address] [place], [place] [phone] Health Maintenance Due Date Last Done Comments [...] 03/13, 01/22/2009 Meningococcal Vaccine Completed 09/04/2014, 009 Influenza Vaccine Completed 07/25/2024, , 04/27/2016, Additional history exists HIV Screening Completed 11/20/2024, 03/13, 06/19/2023, Additional history exists Hepatitis C Screening Completed 11/20/2024 , 03/26/2024, 04/10/2023, Additional history exists RSV under 20 months Aged Out No longe r eligible based on patient's age to complete this topic Rotavirus Vaccines Aged Out No longer eligible based on patient's age to complete this topic Procedures Procedure Name Priority Date/Time Associated Diagnosis Comments SYPHILIS SCREEN Routine 11/20/2024 2:44 PM EDT Vaginal discharge HIV 1/2 ANTIGEN/ANTIBODY, FOURTH GENERATION W/RFL Routine 11/20/2024 2:44 PM EDT Vaginal discharge HEPATITIS C AB W/REFL TO HCV RNA, QN, PCR Routine 11/20/2024 2:44 PM EDT Vaginal discharge HEPATITIS B SURFACE ANTIGEN, EIA Routine 11/20/2024 2:44 PM EDT Vaginal discharge COMPREHENSIVE METABOLIC PANEL Routine 11/20/2024 2:44 PM [...] DIPSTICK Routine 11/20/2024 2:12 PM EDT Dysuria BACTERIAL VAGINOSIS PANEL Routine 11/20/2024 12:47 PM EDT CHLAMYDIA/N. GONORRHOEAE RNA, TMA, UROGENITAL Routine 11/20/2024 12:47 PM EDT Vaginal discharge CASE PRESENTATION, DETAILED AND EXTENSIVE TREATMENT PLANNING [...] 9:00 AM EST Dental caries Dentin hypersensitivity PAP SMEAR Routine 11/05/2023 10:05 AM EDT Cervical cancer screening INTRAORAL - COMPLETE SERIES OF RADIOGRAPHIC IMAGES Routine 07/22/2021 12:00 AM EST from Last 3 Months or Most Recently Relevant to Health Maintenance Results * Syphilis Screen (11/20/2024 2:44 PM EDT) Pathologist [facility] Syphilis Screen Nonreactive Nonreactive [facility] Blood 11/20/2024 2:44 PM EDT 11/20/2024 3:59 PM EDT Enedelia Chahal MD LAB BLOOD ORDERAB LES Final Result [facility] [address] [place] [phone] * CBC auto differential (11/20/2024 2:44 PM EDT) Pathologist [facility] White Blood Count 8.4 4.8 - 10.8 X10*3/uL [facility] Red Blood Count 4.69 4.20 - 5.50 X10*6/uL [facility] Hemoglobin 13.7 12.0 - 16.0 g/dl [facility] Hematocrit 41.7 37.0 - 47.0 % [facility] Mean Corpuscular Volume 88.9 80.0 - 98.0 fL [facility] Mean Corpuscular Hemoglobin 29.2 27.0 - 33.0 pg [facility] Mean Corpuscular HGB Conc 32.9 31.0 - 35.0 g/dl [facility] Red Cell Distribution Width 12.1 11.0 - 16.0 % [facility] Platelet Count 375 160 - 400 X10*3/uL [facility] Mean Platelet Volume 10.2 9.4 - 12.3 fL [facility] Neutrophils Percent Auto 52.8 45 - 73 % [facility] Imm Gran Pct Auto 0.2 0.0 - 0.4 % [facility] Lymphocytes Percent Auto 39.5 20 - 40 % [facility] Monocytes Percent Auto 5.5 2 - 11 % [facility] Eosinophils Percent Auto 1.3 0 - 4 % [facility] Basophils Percent Auto 0.7 0 - 2 % [facility] NRBC Pct Auto 0.0 0.0 - 0.2 /100WBC [facility] Neutrophils Absolute Auto 4.4 2.0 - 8.3 x10*3/uL [facility] Imm Gran Abs Auto 0.02 0.00 - 0.03 X10*3/uL [facility] Lymphocytes Absolute Auto 3.3 1.2 - 4.9 X10*3/uL [facility] Monocytes Absolute Auto 0.5 0.1 - 1.2 X10*3/uL [facility] Eosinophils Absolute Auto 0.1 0.0 - 0.4 X10*3/uL [facility] Basophils Absolute Auto 0.1 0.0 - 0.2 X10*3/uL [facility] NRBC Abs Auto 0.000 0.0 - 0.012 X10*3/uL [facility] Blood Venous blood specimen / Unknown 11/20/2024 2:44 PM EDT 11/20/2024 3:59 PM EDT us Lucian Hedrick [facility] LAB BLOOD ORDERABLES Matilda l Result [facility] [address] [place] [phone] * Hepatitis C Antibody with Reflex to HCV, RNA, Quantitative, Real-Time PCR (11/20/2024 2:44 PM EDT) Hepatitis C Antibody Nonreactive Nonreactive [facility] Comment:Antibodies to HCV no t detected; does not exclude early acuteHCV infection. Blood Venous blood specimen / Unknown 11/20/2024 2:44 PM EDT 11/20/2024 3:59 PM EDT us Enedelia Chahal MD LAB BLOOD ORDERAB LES Final Result Performing Organization Address City/[facility]/ZIP Co de Phone Number [facility] [address] [place] [phone] * Iron And Total Iron Binding Capacity (11/20/2024 2:44 PM EDT) [facility] Iron 57 30 - 160 mcg/dL [facility] Total Iron Binding Capacity 287 228 - 428 mcg/dL [facility] Percent Iron Saturation 20 15 - 50 % [facility] Unsaturated Iron Binding 230 ug/dL [facility] Blood Venous blood specimen / Unknown 11/20/2024 2:44 PM EDT 11/20/2024 3:59 PM EDT us Lucian FRANK LAB BLOOD ORDERABLES Matilda l Result Performing Organization Address [facility]/ZIP Co de Phone Number [facility] [address] [place] [phone] * Hepatitis B surface antigen, EIA (11/20/2024 2:44 PM EDT) [facility] Hepatitis B Surface Ag Negative Negative [facility] Blood Venous blood specimen / Unknown 11/20/2024 2:44 PM EDT 11/20/2024 3:59 PM EDT us Enedelia Chahal MD LAB BLOOD ORDERAB LES Final Result Performing Organization Address City/[facility]/ZIP Co de Phone Number [facility] [address] [place], [place] [phone] * HIV-1/2 Antigen and Antibodies, Fourth Generation, with Reflexes (11/20/2024 2:44 PM EDT) HIV AB/AG Nonreactive Nonreactive [facility] Comment:HIV-1 p24 Ag and/or HIV-1/HIV-2 Ab not detected.A test result that is nonreactive does not exclude thepossibility of exposure to or infection with HIV-1 and/orHIV-2. Nonreactive results in this assay for individualswith prior exposure to HIV-1 and/or HIV-2 may be due toantigen and antibody levels that are below the limit ofdetection of this assay.The [employer] HIV Ag/Ab Combo assay result andsupplemental assay results should be interpreted inconjunction with the patient's clinical presentation,history and other laboratory results. If the results areinconsistent with clinical evidence, additional testing issuggested to confirm the result. Blood Venous blood specimen / Unknown 11/20/2024 2:44 PM EDT 11/20/2024 3:59 PM EDT us Enedelia Chahal MD LAB BLOOD ORDERAB LES Final Result Performing Organization Address City/[facility]/ZIP Co de Phone Number [facility] [address] [place] [address] [phone] * Partial Thromboplastin Time, Activated (APTT) (11/20/2024 2:44 PM EDT) [facility] Partial Thromboplastin Time 32.6 26.0 - 36.8 SEC [facility] Comment:For information rega rding the monitoring of direct thrombininhibitors, please refer to Pharmacy. Blood Venous blood specimen / Unknown 11/20/2024 2:44 PM EDT 11/20/2024 3:59 PM EDT us Lucian Hedrick CNM LAB BLOOD ORDERABLES Matilda l Result Performing Organization Address [facility]/ZIP Co de Phone Number [facility] [address] [place] [phone] * Prothrombin Time-INR (11/20/2024 2:44 PM EDT) [facility] Prothrombin Time 11.2 10.9 - 12.4 SEC [facility] INTERNATIONAL NORM RATIO 1.0 0.9 - 1.1 [facility] Comment:INTERNATIONAL NORMAL IZED RATIO (INR) [...] 2:44 PM EDT 11/20/2024 3:59 PM EDT [facility] LAB BLOOD ORDERABLES Matilda l Result Performing Organization Address [facility]/ZIP Co de Phone Number [facility] [address] [place] [phone] * Ferritin (11/20/2024 2:44 PM EDT) [facility] Ferritin 28 10 - 122 ng/mL [facility] Blood Venous blood specimen / Unknown 11/20/2024 2:44 PM EDT 11/20/2024 3:59 PM EDT [facility] LAB BLOOD ORDERABLES Matilda l Result Performing Organization Address [facility]/ZIP Co de Phone Number [facility] [address] [place] [phone] * (ABNORMAL) Comprehensive Metabolic Panel (11/20/2024 2:44 PM EDT) [facility] Sodium 141 135 - 145 mmol/L [facility] Potassium 3.8 3.3 - 5.1 mmol/L [facility] Chloride 107 96 - 108 mmol/L [facility] Carbon Dioxide 26 22 - 29 mmol/L [facility] Anion Gap 12 12 - 20 [facility] Urea Nitrogen (BUN) 7(L) 9 - 16 mg/dL [facility] Creatinine, Serum 0.70 0.5 - 1.4 mg/dL [facility] Estimated Glomerular Filt Rate >60 [facility] Comment:Chronic Kidney Disea se: Estimated GFR < 60 mL/min/1.66b1Fftqai Kidney Disease: Estimated GFR < 15 mL/min/1.73m2 Glucose 86 60 - 115 mg/dL [facility] Calcium 9.3 8.4 - 10.2 mg/dL [facility] Bilirubin, Total 0.4 0.0 - 1.0 mg/dL [facility] Aspartate Amino Transferase 55(H) 5 - 31 U/L [facility] Alanine Aminotransferase 20 0 - 31 U/L [facility] Total Protein 7.7 6.5 - 8.0 g/dL [facility] Albumin Level 4.5 3.5 - 5.0 g/dL [facility] Alkaline Phosphatase 78 39 - 117 U/L [facility] Blood Venous blood specimen / Unknown 11/20/2024 2:44 PM EDT 11/20/2024 3:59 PM EDT Enedelia Chahal MD LAB BLOOD ORDERAB LES Final Result [facility] [address] [place] [phone] * POCT Urine (11/20/2024 2:17 PM EDT) Only the most recent of2 resultswithin the time period is included. Preg Test, Ur Negative Negative, Indeterminate, None Detected, Invalid, Specimen unsatisfactory for evaluation, Weakly Positive QC Media Lot # [id number] Lot# Expiration Date [id number] Urine 11/20/2024 2:17 PM EDT Enedelia Chahal [...] Media Lot # [id number] Lot# Expiration Date [id number] Urine 11/20/2024 2:12 PM EDT Enedelia Chahal MD POINT OF CARE THIAGO T ENTER/EDIT ORDERABLES Final Result * (ABNORMAL) Bacterial Vaginosis (11/20/2024 12:47 PM EDT) TRICHOMONAS VAGINALIS DETECTION BY PCR NOT DETECTED Not Detect [facility] BACTERIAL VAGINOSIS DETECTION BY PCR POSITIVE(A) Negative [facility] Comment:The BV organism targ ets of the Xpert Xpress MVP test can becommensal in women; Xpert Xpress MVP positive results forbacterial vaginosis should be considered in conjunction withother clinical and patient information to determine thedisease status. Organisms that are not detected by the XpertXpress MVP test have also been reported to be associatedwith BV and aerobic vaginitis.The Xpert Xpress MVP test performance has not been evaluatedin patients under the age of 14. ALEE GROUP DETECTION BY PCR DETECTED(A) Not Detect [facility] Alee glab krusei PCR NOT DETECTED Not Detect [facility] 11/20/2024 12:4 7 PM EDT 11/20/2024 4:07 PM EDT Enedelia Chahal MD LAB MICROBIOLOGY - GENERAL ORDERABLES Final Result [facility] [address] [place] [phone] * Chlamydia/N. Gonorrhoeae RNA, TMA, Urogenitial (11/20/2024 12:47 PM EDT) CT PCR NOT DETECTED Not Detect. [facility] Comment:A not detected test result does not exclude the possibilityof infection because test results can be affected byimproper specimen collection, concurrent antibiotic therapy,or the number of organisms in the specimen which may bebelow the sensitivity of the test. As with many diagnostictests, results from the Xpert CT/NG assay should beinterpreted in conjunction with other laboratory andclinical data available to the clinician.Xpert CT/NG performance has not been evaluated in patientsless than 14 years of age. The assay should not be used forthe evaluationof suspected sexual abuse or for other medico-legalindications. Additional testing is recommended in anycircumstance when false positive or false negative resultscould lead to adverse medical, social or psychologicalconsequences. NG PCR NOT DETECTED Not Detect. [facility] Comment:A not detected test result does not exclude the possibilityof infection because test results can be affected byimproper specimen collection, concurrent antibiotic therapy,or the number of organisms in the specimen which may bebelow the sensitivity of the test. As with many diagnostictests, results from the Xpert CT/NG assay should beinterpreted in conjunction with other laboratory andclinical data available to the clinician.Xpert CT/NG performance has not been evaluated in patientsless than 14 years of age. The assay should not be used forthe evaluationof suspected sexual abuse or for other medico-legalindications. Additional testing is recommended in anycircumstance when false positive or false negative resultscould lead to adverse medical, social or psychologicalconsequences. Swab (Vaginal Swab) 11/20/2024 12:47 PM EDT 11/20/2024 4:08 PM EDT Narrative [facility] - 11/21/2024 4:10 AM EDT Vaginal us Enedelia Chahal MD LAB MICROBIOLOGY - GENERAL ORDERABLES Final Result [facility] [address] [place] [phone] [phone] * POCT hemoglobin docked device (09/04/2024 10:17 AM EST) Hemoglobin 12.7 12.0 - 15.0 QC Media Lot # [id number] Lot# Expiration Date [id number] Blood 09/04/2024 10:1 7 AM EST Lucian Hedrick CNM POINT OF CARE TEST ENTER/ EDIT ORDERABLES Final Result * Pap Smear (11/05/2023 10:05 AM EDT) Swab Cervix uteri structure / Unknown 11/05/2023 10:05 AM EDT 11/06/2023 11:50 AM EDT Narrative [facility] - 11/18/2023 5:50 PM EDT ----- ------- Name: Jordyn Lara ?Age/Sex: 28/F ? : 1995 Unit#: [id number] ?? Attend Dr: LUCIAN HEDRICK CNM ?Re11/05/23 ?Status: DEP REF ? Location: [facility] ? Disch: ? ----- ------- SPEC : [id number] ? RECD: 11/06/23 ? STATUS: ??SOUT ? REQ NUM: [id number] ? SARAH BETH: 11/05/23-1004 ? SUBM DR: LUCIAN HEDRICK CNM ? ENTERED: ??11/06/23-1313 ?SP TYPE: Pap Smr ?OTHR : ? ORDERED: ??Pap Smear ? Interpretation ?? Satisfactory for evaluation. ?? Negative for intraepithelial lesion or malignancy. ?Clinical Information LMP: Unknown date Previous PAP test: Unknown date/findings ? Material Received ?? ThinPrep-Vaginal/Cervical ----- ------- Signed (signature on file) Clementine Haas 11/18/23 1750 ? ----- ------- ? END OF REPORT ? us Lucian Hedrick M LAB CYTOLOGY ORDERABLES F inal Result [facility] [address] [place] [phone] from Last 3 Months or Most Recently Relevant to Health Maintenance Insurance [address] [place] [id number] [facility] [place] [id number] [facility] PART[facility] (MEDICAID) [address] [place], [place] Care Teams Homicide Detective Relationship Specialty Start Date End Date Enedelia Joe MD [address] [place] [phone] PCP - General Internal Medicine 03/28/23
--- OUTSIDE RECORDS SUMMARY | 2024-11-27 15:13 | XMS_ITS | Encounter Summary ---
Author Organization [employer] Address [address] [place] [address] [address] [place] [address] Care Team Providers Care Model Maker Scale Name Role Phone Enedelia Joe MD Primary Care Pro vider Reason for Visit * Reason Onset Date Comments Appointment Request 10/12/2023 Encounter Details Date Type Department Care Team ([facility] st Contact Info) Description 10/12/2023 Telephone [facility] [address] [place], [place] [phone] Enedelia Joe MD [address] [place] [address] Appointment Request Social History Tobacco Use Types [...] Description 12/25/2024 1:30 PM EDT Office Visit [facility] [address] [place] [phone] Enedelia Joe MD [address] [place] [phone] 12/26/2024 3:00 PM EDT Office Visit [facility] [address] [place] [address] Amina Osborne 01/01/2025 11:30 AM EDT Office Visit [facility] [address] [place] [phone] Simran Robledo CNM [address] [place] [phone] documented as of this encounter Visit Diagnoses Not on filedocumented in this encounter Additional Health Concerns Assessment Noted Time PHQ-9 Depression Total Score: 5 02/16/20 23 10:42 AM EDT documented as of this encounter Care Teams Model Maker Scale Relationship Specialty Start Date End Date Enedelia Joe MD [address] [place] [phone] PCP - General Internal Medicine 03/28/23 documented as of this encounter
--- OUTSIDE RECORDS SUMMARY | 2024-11-27 15:13 | XMS_ITS | Encounter Summary ---
Author Organization [employer] Address [address] [place] [address] 7t [place] [address] Care Team Providers Care Merchandise Processor Name Role Phone Enedelia Joe MD Primary Care Pro vider Reason for Visit * Reason Onset Date Comments Nurse Triage 11/27/2024 Encounter Details Date Type Department Care Team (Late st Contact Info) Description 11/27/[address] [facility] MED[facility]INE [address] [place], [place] [phone] Enedelia Joe MD [address] [place] [address] Nurse Triage Social History Tobacco Use Types [...] encounter Miscellaneous Notes * Telephone Encounter - Alice Nelson RN - 11/27/2024 12:58 PM EDT Pt walked into green team lobby requesting to speak to PCP directly. Informed her that PCP is currently seeing pts but we can take a message. Pt insistent that she needs a second pill of fluconazole because she is still having Sx. Also states that there is a lab that she has to get done that, doesn't show up in your system . She just went to the lab and had the von Willebrand antigen drawn before walking up here, it is being run in [facility] system. Informed that there are no other active labs that I can see but pt states PCP wanted her to do something else. Informed I would send message. * Telephone Encounter - Marianela Corona RN - 11/27/2024 12:09 PM EDT Called pt. She states that last week she went into office and was positive for BV and a yeast infection. Today is last pill for BV but, pt. Is still having yeast sx. -white cottage cheese drainage and is requesting a refill on Diflucan. Pt states that she usually always gets 1 pill with 1 refill but only got 1 pill and that is not enough to clear up yeast sx. Please advise if you will refill or if pt. Needs to come back in to be seen. Pt is working today. Protocol Used: Vaginal Symptoms (Adult) Protocol-Based Disposition: Home Care Positive Triage Question: * Symptoms of a yeast infection (i.e., itchy, white discharge, not bad smelling) and feels like prior vaginal yeast infections * All higher-acuity triage questions were negative Care Advice Discussed: * Antifungal Medicine for Yeast Infection * Antifungal Medicine for Yeast Infection - Extra Notes and Warnings * Genital Hygiene * Telephone Encounter - Leydi Prather - 11/27/2024 12:02 PM EDT Symptom: Urine Symptoms Outcome: Schedule a same-day appointment or talk to a nurse or provider today Reason: Caller denied all higher acuity questions The caller accepted this outcome. [phone] documented in this encounter Plan of Treatment Upcoming Encounters Date Type Department Care Team (Late st Contact Info) Description 12/25/2024 1:30 PM EDT Office Visit [address] [address] Enedelia Joe MD [address] [place] [address] 12/26/2024 3:00 PM EDT Office Visit [facility] [address] [place], [place] [phone] Amina Osborne 01/01/2025 11:30 AM EDT Office Visit [address] [address] Simran Robledo CNM [address] [place] [address] documented as of this encounter Visit Diagnoses Diagnosis Vaginal discharge Leukorrhea, not specified as infective documented in this encounter Additional Health Concerns Assessment Noted Time PHQ-9 Depression Total Score: 3 02/07/20 24 10:26 AM EDT documented as of this encounter Care Teams Merchandise Processor Relationship Specialty Start Date End Date Enedelia Joe MD [address] [place] [address] PCP - General Internal Medicine 03/28/23 documented as of this encounter
--- OUTSIDE RECORDS SUMMARY | 2024-11-27 15:13 | XMS_ITS | Encounter Summary ---
Author Organization [employer] Address [address] [place] [address] 7t [place] [address] Care Team Providers Care Dining Room Server Name Role Phone Enedelia Joe MD Primary Care Pro vider Reason for Visit * Reason Onset Date Comments Nurse Triage 02/05/2024 Encounter Details Date Type Department Care Team (Late st Contact Info) Description 02/05/2024 Telephone [facility] [address] [place], [place] [phone] Enedelia Joe MD [address] [place] [address] Nurse Triage Social History Tobacco Use Types [...] in November, Pt has been seen in [facility] 12/11/23, 12/13/23, 01/01/24, 01/22/24, all for the [...] to do this. Pt requests to see DIVISION SERVICE MANAGER, apt requested for 02/07/24. Apt with DENISSE [...] Description 12/25/2024 1:30 PM EDT Office Visit [facility] [address] [place] [address] Enedelia Joe MD [address] [place] [address] 12/26/2024 3:00 PM EDT Office Visit [facility] [address] [place] [address] Amina Osborne 01/01/2025 11:30 AM EDT Office Visit [facility] [address] [place] [address] Simran Robledo CNM [address] [place] [address] documented as of this encounter Visit Diagnoses Not on filedocumented in this encounter Additional Health Concerns Assessment Noted Time PHQ-9 Depression Total Score: 5 02/16/20 23 10:42 AM EDT documented as of this encounter Care Teams Dining Room Server Relationship Specialty Start Date End Date Enedelia Joe MD [address] [place] [address] PCP - General Internal Medicine 03/28/23 documented as of this encounter
--- OUTSIDE RECORDS SUMMARY | 2024-11-27 15:13 | XMS_ITS | Encounter Summary ---
Author Organization [facility] Address [address] [place] [address] Care Team Providers Care Tapering Machine Operator Name Role Phone Yulissa Conway MD Primary Care Provider Yulissa Martin MD Primary Care Provider Mulugeta e Enedelia Jackson Primary Care Provider [phone] [facility], Pcp Primary Care Provider Unavailcharlee e Reason for Visit * Reason Comments Form Encounter Details Date Type Department Care Team Description 04/26/1999 Telephone Pediatrics - [address] [address] Form Social History Tobacco Use Types Packs/Day Years Used Date Smoking Tobacco: Never Assessed Sex Assigned at Date Recorded Not on file documented as of this encounter Miscellaneous Notes * Telephone Encounter - 04/26/1999 11:59 PM EDT>> CALL RECEIVED. Contact: mother [phone] >> TAMEKA TEX 04/26/1999 01:55 pm needs standard pe form completed and left for p/u, chart requested documented in this encounter Plan of Treatment Not on file documented as of this encounter Visit Diagnoses Not on filedocumented in this encounter Care Teams Tapering Machine Operator Relationship Specialty Start Date End Date Yulissa Conway MD PCP - General 02/20/00 02/10/18 Yulissa Conway MD PCP - General 02/10/00 02/19/00 Enedelia Jackson [address] [place] [address] PCP - General 1997 02/09/00 [facility], Pcp [address] [place] [address] PCP - General Internal Medicine 02/11/18 documented as of this encounter
--- OUTSIDE RECORDS SUMMARY | 2024-11-27 15:13 | XMS_ITS | Encounter Summary ---
Author Organization [employer] Address [address] [place] [address] 7t [place] [address] Care Team Providers Care Consignee Name Role Phone Jaz Sams Carol ROPER Primary Care Provider [phone] Enedelia Joe MD Primary Care Pro vider Encounter Details Date Type Department Care Team (Late st Contact Info) Description 03/14/2023 Orders Only [facility] [address] [place], [place] [phone] Ken Ramires MD [address] [place] [address] Social History Tobacco Use Types Packs/Day Years [...] Description 12/25/2024 1:30 PM EDT Office Visit [facility] MED[facility] [address] [place] [address] Enedelia Joe MD [address] [place] [address] 12/26/2024 3:00 PM EDT Office Visit [facility] [address] [place] [address] Amina Osborne 01/01/2025 11:30 AM EDT Office Visit [facility] [address] [place], [place] [phone] Simran Robledo CNM [address] [place] [address] documented as of this encounter Visit Diagnoses Not on filedocumented in this encounter Additional Health Concerns Assessment Noted Time PHQ-9 Depression Total Score: 5 02/16/20 23 10:42 AM EDT documented as of this encounter Care Teams Consignee Relationship Specialty Start Date End Date Jaz Sams FNP PCP - General Family Medicine 04/10/22 03/27/23 Enedelia Joe MD [address] [place] [address] PCP - General Internal Medicine 03/28/23 documented as of this encounter
--- OUTSIDE RECORDS SUMMARY | 2024-11-27 15:14 | XMS_ITS | Encounter Summary ---
Author Organization [employer] Address [address] [facility] 7t [place] [address] Care Team Providers Care Medical Physics Researcher Name Role Phone Jaz Sams [facility] Primary Care Provider [phone] Enedelia Joe MD Primary Care Pro vider Encounter Details Date Type Department Care Team ([facility] Contact Info) Description 12/01/2022 Orders Only [facility] MED[facility]INE [address] [place] [address] [phone] Jaz Sams [address] Dept [place] [address] Social History Tobacco Use Types Packs/Day Years [...] Description 12/25/2024 1:30 PM EDT Office Visit [facility] [address] [place] [address] Enedelia Joe MD [address] [place] [address] 12/26/2024 3:00 PM EDT Office Visit [facility] [address] [place] [address] Amina Osborne 01/01/2025 11:30 AM EDT Office Visit [facility] [address] [place] [address] Simran Robledo CNM [address] [place] [address] documented as of this encounter Visit Diagnoses Not on filedocumented in this encounter Additional Health Concerns Assessment Noted Time PHQ-9 Depression Total Score: 0 10/24/19 3:39 PM EDT documented as of this encounter Care Teams Medical Physics Researcher Relationship Specialty Start Date End Date Jaz Sams FNP PCP - General Family Medicine 04/10/22 03/27/23 Enedelia Joe MD [address] [place] [address] PCP - General Internal Medicine 03/28/23 documented as of this encounter
--- OUTSIDE RECORDS SUMMARY | 2024-11-27 15:14 | XMS_ITS | Encounter Summary ---
Author Organization [employer] Address [address] [place] [address] 7t [place] [address] Care Team Providers Care Lieutenant Shift Supervisor Name Role Phone Jaz Sams Carol INVESTOR RELATIONS COORDINATOR Primary Care Provider [phone]- [phone] Enedelia Joe MD Primary Care Pro vider Encounter Details Date Type Department Care Team (Latest Contact Info) Description 07/22/2021 Abstract [facility] CONVERSIONS Dental, Provider, DDS Social History Tobacco [...] Description 12/25/2024 1:30 PM EDT Office Visit [facility] MEDICINE [address] [place] [address] Enedelia Joe MD [address] [place] [address] 12/26/2024 3:00 PM EDT Office Visit [facility] ADULT D[facility]AL [address] [place] [address] Amina Osborne 01/01/2025 11:30 AM EDT Office Visit [facility] MEDICINE [address] [place] [address] Simran Robledo CNM [address] [place] [address] documented as of this encounter Visit Diagnoses Not on filedocumented in this encounter Care Teams Lieutenant Shift Supervisor Relationship Specialty Start Date End Date Jaz Sams FNP PCP - General Family Medicine 04/10/22 03/27/23 Enedelia Joe MD [address] [place] [address] PCP - General Internal Medicine 03/28/23 documented as of this encounter
--- OUTSIDE RECORDS SUMMARY | 2024-11-27 15:14 | XMS_ITS | Encounter Summary ---
Author Organization [employer] Address [address] [facility] 7t [place] [address] Care Team Providers Care Instrumentation And Controls Technician Name Role Phone Enedelia Joe MD Primary Care Pro vider Reason for Visit * Reason Comments Med Refill Encounter Details Date Type Department Care Team ([facility] st Contact Info) Description 07/25/2024 Refill [facility] [address] [place] [address] Adrian Camejo MD [address] [place] [address] Skin rash Social History Tobacco Use Types [...] Description 12/25/2024 1:30 PM EDT Office Visit [facility] MED[facility] [address] [place] [address] Enedelia Joe MD [address] [place] [address] 12/26/2024 3:00 PM EDT Office Visit [facility]ULT [facility] [address] [place] [address] Amina Osborne 01/01/2025 11:30 AM EDT Office Visit [facility] [address] [place] [address] Simran Robledo CNM [address] [place] [address] [phone] documented as of this encounter Visit Diagnoses Diagnosis Skin rash Rash and other nonspecific skin eruption documented in this encounter Additional Health Concerns Assessment Noted Time PHQ-9 Depression Total Score: 3 02/07/20 10:26 AM EDT documented as of this encounter Care Teams Instrumentation And Controls Technician Relationship Specialty Start Date End Date Enedelia Joe MD [address] [place] [address] PCP - General Internal Medicine 03/28/23 documented as of this encounter
--- OUTSIDE RECORDS SUMMARY | 2024-11-27 15:14 | XMS_ITS | Data Portability ---
Author Organization [employer] [id number] Address [address] [place] [address] Assessment No assessment recorded. Plan of Treatment Reminders Order Date Submit Date Provider Last Modified By Organization Details Last Modified Time Details Appointments None recorded. [facility] test, [facility], [address] [place] [address], [phone], 3 19:16:37 urinalysis, dipstick 2022 023 [facility] 2099_jose [facility], [address] [place] [address], [phone], 3 19:16:37 vaginal pathogens panel, DOMINGA+probe, vaginal fluid 2022 023 [place] [facility], [address] [place] [address], [address], 3 20:06:08 Referral None recorded. Procedures None recorded. Surgeries None recorded. Imaging None recorded. Medication Orders fluconazole 150 mg tablet 2022 023 [place] [id number], [address] [facility], [place], [address], 3 19:16:39 Patient TargetsNo targets recorded. Patient Instructions Encounter Date Encounter Id Patient Instructions Last Modified By Organization Details Last Modified Time 08/27/2022 [id number] -Reviewed the various causes of vaginal problems. [...] - 2 score abnormal Not Available [facility]) [address] [place], [address], 08/30/2022 06:07:40 08/27/1908/29/2022 NUA B VAGIN ITIS PLUS (VG+) bvab 2 HIGH - 2 score abnormal Not Available [facility] ([facility]) [address] [facility], [place], [address], 08/30/2022 06:07:40 08/27/1908/29/2022 NUA B VAGIN ITIS [...] Drug Admin istra tion. Not Available [facility] ([facility]) [address] [facility], [place], [address], 08/30/2022 06:07:40 08/27/19 23 08/29/2022 NUSWA B VAGIN ITIS PLUS (VG+) dima albicans, DOMINGA NEGATI VE negati ve Not Available [facility] ([facility]) [address] [facility], [place], [address], 08/30/2022 06:07:40 08/27/19 23 08/29/2022 NUA B VAGIN ITIS PLUS (VG+) dima glabrata, DOMINGA NEGATI VE negati ve Not Available [facility] ([facility]) [address] [facility], [place], [address], 08/30/2022 06:07:40 08/27/1908/30/2022 NUA B VAGIN ITIS PLUS (VG+) trich vag by DOMINGA NEGATI VE negati ve Not Available [facility] ([facility]) [address] [facility], [place], [address], 08/30/2022 06:07:40 08/27/19 23 08/30/2022 NUA B VAGIN ITIS PLUS (VG+) chlamydia trachomatis, DOMINGA NEGATI VE negati ve Not Available [facility] ([facility]) [address] [facility], [place], [address], 08/30/2022 06:07:40 08/27/1908/30/2022 NUA B VAGIN ITIS PLUS (VG+) neisseria gonorrhoeae, DOMINGA NEGATI VE negati ve Not Available [facility] ([facility]) [address] [facility], [place], [address], 08/30/2022 06:07:40 08/27/19 23 08/27/2022 urina lysis , dipst ick Unknown Analyte Normal = light yellow Not Available [facility] [address], [place], [address], 08/27/2022 18:32:00 08/27/19 23 08/27/2022 urina lysis , dipst ick Unknown Analyte Yellow Not Available jose [address], [place], [address], 08/27/2022 18:32:00 08/27/19 23 08/27/2022 urina lysis , dipst ick Unknown Analyte Normal = clear Not Available jyotsna galarza [address], [place], [address], 08/27/2022 18:32:00 08/27/19 23 08/27/2022 urina lysis , dipst ick Unknown Analyte Slight ly Cloudy Not Available jyotsna galarza [address], [place], [address], 08/27/2022 18:32:00 08/27/19 23 08/27/2022 urina lysis , dipst ick Unknown Analyte Normal = negati ve Not Available jyotsna galarza [address], [place], [address], 08/27/2022 18:32:00 08/27/19 23 08/27/2022 urina lysis , dipst ick Unknown Analyte Negati ve Not Available jyotsna galarza [address], [place], [address], 08/27/2022 18:32:00 08/27/19 23 08/27/2022 urina lysis , dipst ick Unknown Analyte Normal = Negati ve Not Available jyotsna galarza [address], [place], [address], 08/27/2022 18:32:00 08/27/19 23 08/27/2022 urina lysis , dipst ick Unknown Analyte Negati ve Not Available jyotsna galarza [address], [place], [address], 08/27/2022 18:32:00 08/27/1908/27/2022 urina lysis , dipst ick Unknown Analyte Normal = Negati ve Not Available jyotsna galarza [address], [place], [address], 08/27/2022 18:32:00 08/27/19 23 08/27/2022 urina lysis , dipst ick Unknown Analyte Negati ve Not Available jyotsna galarza [address], [place], [address], 08/27/2022 18:32:00 08/27/19 23 08/27/2022 urina lysis , dipst ick Unknown Analyte Normal = 1.010, 1.015, 1.020 Not Available jyotsna galarza [address], [place], [address], 08/27/2022 18:32:00 08/27/19 23 08/27/2022 urina lysis , dipst ick Unknown Analyte 1.015 Not Available jose [address], [place], [address], 08/27/2022 18:32:00 08/27/19 23 08/27/2022 urina lysis , dipst ick Unknown Analyte Normal = Negati ve Not Available jyotsna galarza [address], [place], [address], 08/27/2022 18:32:00 08/27/19 23 08/27/2022 urina lysis , dipst ick Unknown Analyte Negati ve Not Available jyotsna galarza [address], [place], [address], 08/27/2022 18:32:00 08/27/19 08/27/2022 urina lysis , dipst ick Unknown Analyte Normal = 6.5, 7.0, 7.5, 8.0 Not Available jyotsna galarza [address], [place], [address], 08/27/2022 18:32:00 08/27/19 23 08/27/2022 urina lysis , dipst ick Unknown Analyte 7.0 Not Available [address], [place], [address], 08/27/2022 18:32:00 08/27/19 23 08/27/2022 urina lysis , dipst ick Unknown Analyte Normal = Negati ve Not Available [facility] [address], [place], [address], 08/27/2022 18:32:00 08/27/19 23 08/27/2022 urina lysis , dipst ick Unknown Analyte Negati ve Not Available jyotsna [address], [place], [address], 08/27/2022 18:32:00 08/27/19 23 08/27/2022 urina lysis , dipst ick Unknown Analyte Normal = 0.2, 1.0 Not Available jyotsna galarza [address], [place], [address], 08/27/2022 18:32:00 08/27/19 23 08/27/2022 urina lysis , dipst ick Unknown Analyte 0.2 E.U./d L Not Available 2099jyotsna galarza [address], [place], [address], 08/27/2022 18:32:00 08/27/19 23 08/27/2022 urina lysis , dipst ick Unknown Analyte Normal = Negati ve Not Available [facility] [address], [place], [address], 08/27/2022 18:32:00 08/27/19 23 08/27/2022 urina lysis , dipst ick Unknown Analyte Negati ve Not Available jyotsna [address], [place], [address], 08/27/2022 18:32:00 08/27/19 23 08/27/2022 urina lysis , dipst ick Unknown Analyte Normal = Negati ve Not Available jyotsna [address], [place], [address], 08/27/2022 18:32:00 08/27/19 23 08/27/2022 urina lysis , dipst ick Unknown Analyte Negati ve Not Available [address], [place], [address], 08/27/2022 18:32:00 08/27/19 23 08/27/2022 pregn thee test, urine Unknown Analyte Normal = Negati ve Not Available jyotsna [address], [place], [address], 08/27/2022 18:31:52 08/27/19 23 08/27/2022 pregn thee test, urine Unknown Analyte negati ve Not Available [address], [place], [address], 08/27/2022 18:31:52 Result Notes None recorded. Problems Name Problem SNOMED Code Status Onset Date Resolution Date Notes Provider Name and Address Organization Details Recorded Time Bacterial vaginosis 853573017 Active 023 [place], [place] - [facility] 18:33:35 Candidal otitis externa 39829642 Active 023 [place]lett, [place] - [facility] 3 18:33:45 Anxiety 72164039 Active 023 L[place]ON CRENSHAWSAJI bartlett, [facility] [employer] [facility] 3 18:35:00 Problem Notes None recorded. [...] Updated DateTime 3 162.56 cm 24 kg/m2 26935.9 3 g 19 /min 75 /min 99 % 99 % 0 98.6 [degF] 122 mm[Hg] 77 mm[Hg] LAVONZACHARY CAICEDO [facility] [employer] [facility] 3 18:38:46 Social History Question Answer Notes LastModified by Organizat ion Details LastModified Time Tobacco Smoking Status Never Smoker LAVON SASCHA dhruv, [facility] [employer] [facility] 08/27/2022 18:34:48 What Is Your Level [...] SNOMED-CT Code Diagnosis ICD10 Code Diagnosis Note [id number] [place] [address] [address] [place] [address] 08/27/2022 18:10:38 08/27/2022 19:17:30 Acute vaginitis 00809053 N76.0 Health Concerns Section Related Observation LastModified by Organization Detai ls LastModified Time None Recorded Concern Status LastModified by Organization Details LastModified Time None Recorded Advance Directives Directive None Recorded Payers Encounter Date Sequence Insurance Name Policy Number Policy Cheng Covered Member ID Cheng Member ID Guarantor Name 08/27/2022 1 [place] [facility] Jordyn R Badone [id number] Jordyn Badone Notes Date Note Type Note Provider Name and Address Organization Details Recorded Time 08/27/2022 text/html vaginal discharg e after unprotected sexual encounter . denies multiple partners. HX of developing yeast infection. Jose Antonio Wiggins NP [address] [place], [address], [place] - [facility] 08/27/2022 19:18:04 OBGyn Episode No OBEpisode recorded.
--- OUTSIDE RECORDS SUMMARY | 2024-11-27 15:14 | XMS_ITS | Clinical Summary ---
Author Organization [facility] Address [address] [place] [address] Care Team Providers Care Bonding Agent Name Role Phone Community, Pcp Primary Care Provider Unavailabl e Allergies No known active allergies Medications Medication Sig Dispensed Refills Start Date End Date Status Ibuprofen (ADVIL) 200 MG Cap Take by mouth. Takes two capsules when needed for pain 0 Active triamcinolone (KENALOG) 0.1 % ointment Apply to affected areas on body, but not on face or in groin twice daily as needed 80 g 0 08/31/2015 Active Norgestim-Eth Estrad Triphasic (ORTHO TRI-CYCLEN, 28,) 0.18/0.215/0.25 MG-35 MCG Tab Take 1 Each by mouth daily. 28 Tab 11 07/12/2016 Active polyethylene glycol (MIRALAX) powder Take 17 g by mouth daily. Dissolve in water or juice and give by month once daily. 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 L elbow 10/23/2000 Overview: hemarthrosis tinea capitis 06/29/1998 11/14/2006 Immunizations Name Administration Dates Next Due DTaP 08/12/2002, 9,1997,11/04,1997 HIB 11/09/1998, 8,1997,11/04 HPV (Gardasil) 07/29/2009,03/26/2009,01/22/2009 Hepatitis B-3 Dose (<19yrs) 04/08/1998, 7,1997 Influenza (> 6 Months) 07/24/2012,2010,05/13/2010,08/09,05/25/2008,07/13/2007,06/17/2005 ,07/21/2003,08/13/2000 Influenza (>6 Months) Split Preservative Free 08/31/2015,05/11/2014,04/17/2013 Influenza Flu (PT Reported) 04/27/2016 Influenza H1N1 Pandemic Flu Vaccine 07/23/2009 MMR (Dqhtpkq-Znprz-Ksuveio) 06/26/2001, 9 Meningococcal (Menactra) 09/04/2014,03/26/2009 Pneumococcal(Pedi) Conjugate PCV-7 04/11/2000 Polio (IPV) 08/12/2002, 8,1997,09/08 Tdap 01/22/2009 Varicella 08/09/2009,08/13/1998 Family History Medical History Relation Name Comments Cholesterol Level Brother 3 220 Hypertension Maternal Grandfather Asthma Other 1 sibs Obesity Other 2 mother Relation Name Status Comments Brother 1 Alive Tomás 1990 Brother 2 Alive Darnell Nicholas 1992 Brother 3 Father Alive Darnell Osborne 1971 Maternal Grandfather Mother Alive Alexandra 1974 Other 1 Other 2 Sister Alive Heaven 2000 Social History Tobacco Use Types Packs/Day Years Used Date Smoking Tobacco: Never Smokeless Tobacco: Never Comments:mom smokes Alcohol Use Standard Drinks/Week Comments Not Asked 0 (1 standard drink = 0.6 oz pur e alcohol) Sex Assigned at Date Recorded Not on file Last Filed Vital Signs Vital Sign Reading Time Taken Comments Blood Pressure 116/72 09/11/2016 9:04 AM EST Pulse 72 09/11/2016 9:04 AM EST Temperature 36.8 ??C (98.2 ??F) 09/11/2016 9:04 AM ES T Respiratory Rate 12 10/14/2015 3:0 0 PM EST Oxygen Saturation - - Inhaled Oxygen Concentration - - Weight 59.8 kg (131 lb 12.8 oz) 09/11/2016 9:04 AM EST Height 161.3 cm (5' 3.5 ) 09/11/2016 9:04 AM EST Body Mass Index 22.98 09/11/2016 9:04 AM EST Plan of Treatment Health Maintenance Due Date Last Done Comments Covid-19 Vaccine (#1) 01/06/1998 TOBACCO CHECK/ADVISE 2015 CERVICAL CANCER SCREENING 2018 DTAP/TDAP/TD (7 - Td or Tdap) 01/22/2019, 08/12/2002, 02/11/1999, Additional history exists CHOLESTEROL SCREENING 09/04/2019 09/04/2014 BASELINE HEALTH EXAM 18-39 09/11/202109/11, 09/07/2015, 09/07/2015 BMI CHECK/ADVISE 08/13/2024 09/11/2016, , 09/07/2015, Additional history exists DEPRESSION SCREENING/FOLLOWUP 08/13/2024 SOCIAL NEEDS SCREENING 08/13/2024 INFLUENZA (Season Ended) 2025 016, 08/31/2015, 05/11/2014, Additional history exists PNEUMOCOCCAL VACCINE FOR HIG H RISK PATIENTS (#1) 2062 Care Teams Bonding Agent Relationship Specialty Start Date End Date Community, Pcp PCP - General Internal Medicine 02/11/18
--- OUTSIDE RECORDS SUMMARY | 2024-11-27 15:14 | XMS_ITS | Encounter Summary ---
Author Organization [employer] Address [address] [facility] 7t [place] [address] Care Team Providers Care Architectural Practice Manager Name Role Phone Jaz Sams CENTRAL STORES ATTENDANT Primary Care Provider +1- [phone] Enedelia Joe MD Primary Care Pro vider Reason for Visit * Reason Comments Med Change Request Encounter Details Date Type Department Care Team (Late Contact Info) Description 11/26/2022 Refill [facility] MEDICINE [address] [place] [address] Jaz Sams FNP [address] [place] [address] Dept [place] [address] Chronic left-sided thoracic back pain Social History [...] Office Visit [facility] MEDICINE [address] [place] [address] Enedelia Joe MD [address] [place] [address] 12/26/2024 3:00 PM EDT Office Visit [facility] CHC ADULT DENTAL [address] [place] [address] Amina Osborne 01/01/2025 11:30 AM EDT Office Visit [facility] MEDICINE [address] [place] [address] Simran Robledo CNM [address] [place] [address] documented as of this encounter Visit Diagnoses Diagnosis Chronic left-sided thoracic back pain documented in this encounter Additional Health Concerns Assessment Noted Time PHQ-9 Depression Total Score: 0 10/24/19 3:39 PM EDT documented as of this encounter Care Teams Architectural Practice Manager Relationship Specialty Start Date End Date Jaz Sams FNP PCP - General Family Medicine 04/10/22 03/27/23 Enedelia Joe MD [address] [place] [address] PCP - General Internal Medicine 03/28/23 documented as of this encounter
--- OUTSIDE RECORDS SUMMARY | 2024-11-27 15:14 | XMS_ITS | Encounter Summary ---
Author Organization [employer] Address [address] [place] [address] 7t [place] [address] Care Team Providers Care Cable Reeler Name Role Phone Jaz Sams Carol MALE IMPERSONATOR Primary Care Provider +1- [phone] Enedelia Joe MD Primary Care Pro vider Encounter Details Date Type Department Care Team (Latest Contact Info) Description 03/31/2022 Abstract [facility] CONVERSIONS Dental, Provider, DDS Social History [...] 1:30 PM EDT Office Visit [facility] MEDICINE [address] [place] [address] Enedelia Joe MD [address] [place] [address] 12/26/2024 3:00 PM EDT Office Visit [facility] CHC ADULT DENTAL [address] [place] [address] Amina Osborne 01/01/2025 11:30 AM EDT Office Visit [facility] MEDICINE [address] [place] [address] Simran Robledo CNM [address] [place] [address] documented as of this encounter Visit Diagnoses Not on filedocumented in this encounter Care Teams Cable Reeler Relationship Specialty Start Date End Date Jaz Sams FNP PCP - General Family Medicine 04/10/22 03/27/23 Enedelia Joe MD [address] [place] [address] PCP - General Internal Medicine 03/28/23 documented as of this encounter
== END 2024-11-27 12:28 | disposition home or self-care (01) ==
LOC: HO.LAB 12:27
PROVIDERS: PCP Student in an Organized Health Care Education/Training Program; Visit Provider Advanced Practice Midwife
DX: N92.0 Excessive and frequent menstruation with regular cycle (principal)
CPT/HCPCS: 36415; 85247

== ENCOUNTER 2024-12-18 16:48 | Outpatient (REF) | payer OTHER, SELFPAY ==
--- OUTSIDE RECORDS SUMMARY | 2024-12-18 16:51 | XMS_ITS | Encounter Summary ---
Author Organization [employer] Address [address] [facility] 7t [place] [address] Care Team Providers Care Gis Database Administrator Name Role Phone Enedelia Joe MD Primary Care Pro vider Reason for Visit * Reason Comments Med Refill Encounter Details Date Type Department Care Team ([facility] st Contact Info) Description 07/25/2024 Refill [facility] WALK-IN CENTER [address] [place] [address] Adrian Camejo MD [address] [place] [address] Skin rash Social History Tobacco Use Types [...] Description 12/25/2024 1:30 PM EDT Office Visit [facility] MEDICINE [address] [place] [address] Enedelia Joe MD [address] [place] [address] 12/29/2024 3:00 PM EDT Office Visit [facility] CHC ADULT DENTAL [address] [place] [address] Amina Osborne documented as of this encounter Visit Diagnoses Diagnosis Skin rash Rash and other nonspecific skin eruption documented in this encounter Additional Health Concerns Assessment Noted Time PHQ-9 Depression Total Score: 3 02/07/20 24 10:26 AM EDT documented as of this encounter Care Teams Gis Database Administrator Relationship Specialty Start Date End Date Enedelia Joe MD [address] [place] [address] PCP - General Internal Medicine 03/28/23 documented as of this encounter
--- OUTSIDE RECORDS SUMMARY | 2024-12-18 16:51 | XMS_ITS | Encounter Summary ---
Author Organization [employer] Address [address] [place] [address] 7t [place] [address] Care Team Providers Care Package Reinspector Name Role Phone Enedelia Joe MD Primary Care Pro vider Reason for Visit * Reason Onset Date Comments Appointment Request 10/12/2023 Encounter Details Date Type Department Care Team ([facility] st Contact Info) Description 10/12/2023 Telephone [facility] MEDICINE [address] [place], [place] [phone] Enedelia Joe MD [address] [place] [address] Appointment Request Social History Tobacco Use Types [...] Description 12/25/2024 1:30 PM EDT Office Visit [facility] MEDICINE [address] [place] [address] Enedelia Joe MD [address] [place] [address] 12/29/2024 3:00 PM EDT Office Visit [facility] CHC ADULT DENTAL [address] [place] [address] Amina Osborne documented as of this encounter Visit Diagnoses Not on filedocumented in this encounter Additional Health Concerns Assessment Noted Time PHQ-9 Depression Total Score: 5 02/16/20 23 10:42 AM EDT documented as of this encounter Care Teams Package Reinspector Relationship Specialty Start Date End Date Enedelia Joe MD [address] [place] [address] PCP - General Internal Medicine 03/28/23 documented as of this encounter
--- OUTSIDE RECORDS SUMMARY | 2024-12-18 16:51 | XMS_ITS | Data Portability ---
Author Organization [facility] [address] Address [address] [place] [address] Assessment No assessment recorded. Plan of Treatment Reminders Order Date Submit Date Provider Last Modified By Organization Details Last Modified Time Details Appointments None recorded. Lab test, [facility]22 [facility], [address] [place] [address], [phone], 3 19:16:37 urinalysis, dipstick 2022 023 [facility] 2099[facility], [address] [place] [address], [phone], 3 19:16:37 vaginal pathogens panel, DOMINGA+probe, vaginal fluid 2022 023 [facility], [address] [place] [address], [address], 3 20:06:08 Referral None recorded. Procedures None recorded. Surgeries None recorded. Imaging None recorded. Medication Orders fluconazole 150 mg tablet 2022 023 [id number], [address] [facility], [place], [address], 3 19:16:39 Patient TargetsNo targets recorded. Patient Instructions Encounter Date Encounter Id Patient Instructions Last Modified By Organization Details Last Modified Time 08/27/2022 [id number] -Reviewed the various causes of vaginal problems. [...] - 2 score abnormal Not Available [facility] ([facility]) [address] [place], [address], 08/30/2022 06:07:40 08/27/1908/29/2022 NUA B VAGIN ITIS PLUS (VG+) bvab 2 HIGH - 2 score abnormal Not Available [facility] ([facility]) [address] [facility], [place], [address], 08/30/2022 06:07:40 08/27/1908/29/2022 NUA B VAGIN ITIS [...] Drug Admin istra tion. Not Available [facility] ([facility]) [address] [facility], [place], [address], 08/30/2022 06:07:40 08/27/19 23 08/29/2022 NUSWA B VAGIN ITIS PLUS (VG+) dima albicans, DOMINGA NEGATI VE negati ve Not Available [facility] ([facility]) [address] [facility], [place], [address], 08/30/2022 06:07:40 08/27/19 23 08/29/2022 NUA B VAGIN ITIS PLUS (VG+) dima glabrata, DOMINGA NEGATI VE negati ve Not Available [facility] ([facility]) [address] [facility], [place], [address], 08/30/2022 06:07:40 08/27/1908/30/2022 NUA B VAGIN ITIS PLUS (VG+) trich vag by DOMINGA NEGATI VE negati ve Not Available [facility] ([facility]) [address] [facility], [place], [address], 08/30/2022 06:07:40 08/27/19 23 08/30/2022 NUA B VAGIN ITIS PLUS (VG+) chlamydia trachomatis, DOMINGA NEGATI VE negati ve Not Available [facility] ([facility]) [address] [facility], [place], [address], 08/30/2022 06:07:40 08/27/1908/30/2022 NUA B VAGIN ITIS PLUS (VG+) neisseria gonorrhoeae, DOMINGA NEGATI VE negati ve Not Available [facility] ([facility]) [address] [facility], [place], [address], 08/30/2022 06:07:40 08/27/19 23 08/27/2022 urina lysis , dipst ick Unknown Analyte Normal = light yellow Not Available [facility] [address], [place], [address], 08/27/2022 18:32:00 08/27/19 23 08/27/2022 urina lysis , dipst ick Unknown Analyte Yellow Not Available jose [address], [place], [address], 08/27/2022 18:32:00 08/27/19 23 08/27/2022 urina lysis , dipst ick Unknown Analyte Normal = clear Not Available jyotsna galarza [address], [place], [address], 08/27/2022 18:32:00 08/27/19 23 08/27/2022 urina lysis , dipst ick Unknown Analyte Slight ly Cloudy Not Available jyotsna galarza [address], [place], [address], 08/27/2022 18:32:00 08/27/19 23 08/27/2022 urina lysis , dipst ick Unknown Analyte Normal = negati ve Not Available jyotsna galarza [address], [place], [address], 08/27/2022 18:32:00 08/27/19 23 08/27/2022 urina lysis , dipst ick Unknown Analyte Negati ve Not Available jyotsna galarza [address], [place], [address], 08/27/2022 18:32:00 08/27/19 23 08/27/2022 urina lysis , dipst ick Unknown Analyte Normal = Negati ve Not Available jyotsna galarza [address], [place], [address], 08/27/2022 18:32:00 08/27/19 23 08/27/2022 urina lysis , dipst ick Unknown Analyte Negati ve Not Available jyotsna galaraz [address], [place], [address], 08/27/2022 18:32:00 08/27/1908/27/2022 urina lysis , dipst ick Unknown Analyte Normal = Negati ve Not Available jyotsna galarza [address], [place], [address], 08/27/2022 18:32:00 08/27/19 23 08/27/2022 urina lysis , dipst ick Unknown Analyte Negati ve Not Available jyotsna galarza [address], [place], [address], 08/27/2022 18:32:00 08/27/19 23 08/27/2022 urina lysis , dipst ick Unknown Analyte Normal = 1.010, 1.015, 1.020 Not Available jyotsna galarza [address], [place], [address], 08/27/2022 18:32:00 08/27/19 23 08/27/2022 urina lysis , dipst ick Unknown Analyte 1.015 Not Available jose [address], [place], [address], 08/27/2022 18:32:00 08/27/19 23 08/27/2022 urina lysis , dipst ick Unknown Analyte Normal = Negati ve Not Available jyotsna galarza [address], [place], [address], 08/27/2022 18:32:00 08/27/19 23 08/27/2022 urina lysis , dipst ick Unknown Analyte Negati ve Not Available jyotsna galarza [address], [place], [address], 08/27/2022 18:32:00 08/27/19 08/27/2022 urina lysis , dipst ick Unknown Analyte Normal = 6.5, 7.0, 7.5, 8.0 Not Available jyotsna galarza [address], [place], [address], 08/27/2022 18:32:00 08/27/19 23 08/27/2022 urina lysis , dipst ick Unknown Analyte 7.0 Not Available [address], [place], [address], 08/27/2022 18:32:00 08/27/19 23 08/27/2022 urina lysis , dipst ick Unknown Analyte Normal = Negati ve Not Available [facility] gal[facility] [address], [place], [address], 08/27/2022 18:32:00 08/27/19 23 08/27/2022 urina lysis , dipst ick Unknown Analyte Negati ve Not Available jyotsna [address], [place], [address], 08/27/2022 18:32:00 08/27/19 23 08/27/2022 urina lysis , dipst ick Unknown Analyte Normal = 0.2, 1.0 Not Available jyotsna galarza [address], [place], [address], 08/27/2022 18:32:00 08/27/19 23 08/27/2022 urina lysis , dipst ick Unknown Analyte 0.2 E.U./d L Not Available 2099jyotsna galarza [address], [place], [address], 08/27/2022 18:32:00 08/27/19 23 08/27/2022 urina lysis , dipst ick Unknown Analyte Normal = Negati ve Not Available [facility] [address], [place], [address], 08/27/2022 18:32:00 08/27/19 23 08/27/2022 urina lysis , dipst ick Unknown Analyte Negati ve Not Available jyotsna [address], [place], [address], 08/27/2022 18:32:00 08/27/19 23 08/27/2022 urina lysis , dipst ick Unknown Analyte Normal = Negati ve Not Available jyotsna [address], [place], [address], 08/27/2022 18:32:00 08/27/19 23 08/27/2022 urina lysis , dipst ick Unknown Analyte Negati ve Not Available [address], [place], [address], 08/27/2022 18:32:00 08/27/19 23 08/27/2022 pregn thee test, urine Unknown Analyte Normal = Negati ve Not Available jyotsna [address], [place], [address], 08/27/2022 18:31:52 08/27/19 23 08/27/2022 pregn thee test, urine Unknown Analyte negati ve Not Available [address], [place], [address], 08/27/2022 18:31:52 Result Notes None recorded. Problems Name Problem SNOMED Code Status Onset Date Resolution Date Notes Provider Name and Address Organization Details Recorded Time Bacterial vaginosis 120520627 Active 023 LAVON bartlett, [place] - [facility] 18:33:35 Candidal otitis externa 31362269 Active 023 LAVON [place]lett, [place] - [facility] 3 18:33:45 Anxiety 96624738 Active 023 LAVON CRENSHAWSAJI bartlett, [facility] 3 18:35:00 Problem Notes None recorded. [...] Updated DateTime 3 162.56 cm 24 kg/m2 67211.9 3 g 19 /min 75 /min 99 % 99 % 0 98.6 [degF] 122 mm[Hg] 77 mm[Hg] LAVONZACHARY CAICEDO [facility] 3 18:38:46 Social History Question Answer Notes LastModified by Organizat ion Details LastModified Time Tobacco Smoking Status Never Smoker LAVON SASCHA dhruv, [facility] 08/27/2022 18:34:48 What Is Your Level [...] SNOMED-CT Code Diagnosis ICD10 Code Diagnosis Note [id number] [place] [address] [address] [place] [address] 08/27/2022 18:10:38 08/27/2022 19:17:30 Acute vaginitis 07612542 N76.0 Health Concerns Section Related Observation LastModified by Organization Detai ls LastModified Time None Recorded Concern Status LastModified by Organization Details LastModified Time None Recorded Advance Directives Directive None Recorded Payers Insurance Date Sequence Insurance Name Policy Number Policy Cheng Covered Member ID Cheng Member ID Guarantor Name 08/27/2022 1 [place] [facility] Jrodyn R Badone [id number] Jordyn Badone Notes Date Note Type Note Provider Name and Address Organization Details Recorded Time 08/27/2022 text/html vaginal discharg e after unprotected sexual encounter . denies multiple partners. HX of developing yeast infection. Jose Antonio Wiggins NP [address] [place], [address], [place] - [facility] 08/27/2022 19:18:04 OBGyn Episode No OBEpisode recorded.
--- OUTSIDE RECORDS SUMMARY | 2024-12-18 16:51 | XMS_ITS | Encounter Summary ---
Author Organization [employer] Address [address] [facility] 7t [place] [address] Care Team Providers Care Box Stamper Name Role Phone Enedelia Joe MD Primary Care Pro vider Encounter Details Date Type Department Care Team ([facility] st Contact Info) Description 12/11/2024 Orders Only [facility] WALK-IN C[facility] [address] [place], [place] [phone] Kirsten Blanchard MD [address] [place], [place] [phone] Social History Tobacco Use Types Packs/Day Years [...] Description 12/25/2024 1:30 PM EDT Office Visit [facility] MEDICINE [address] [place] [address] Enedelia Joe MD [address] [place] [address] 12/29/2024 3:00 PM EDT Office Visit [facility] CHC ADULT DENTAL [address] [place] [address] Amina Osborne documented as of this encounter Visit Diagnoses Not on filedocumented in this encounter Additional Health Concerns Assessment Noted Time PHQ-9 Depression Total Score: 3 02/07/20 24 10:26 AM EDT documented as of this encounter Care Teams Box Stamper Relationship Specialty Start Date End Date Enedelia Joe MD [address] [place] [address] PCP - General Internal Medicine 03/28/23 documented as of this encounter
--- OUTSIDE RECORDS SUMMARY | 2024-12-18 16:51 | XMS_ITS | Encounter Summary ---
Author Organization [employer] Address [address] [facility] 7t [place] [address] Care Team Providers Care Solar Energy Systems Engineer Name Role Phone Jaz [facility]ms [facility] Primary Care Provider +1- [phone] Enedelia Joe MD Primary Care Pro vider Encounter Details Date Type Department Care Team ([facility] Contact Info) Description 12/01/2022 Orders Only [facility] MEDICINE [address] [place] [phone] Jaz Sams [address] Dept [place] [address] Social History Tobacco Use Types Packs/Day Years [...] 12/25/2024 1:30 PM EDT Office Visit [facility] MED[facility] [address] [place] [address] Enedelia Joe MD [address] [place], [place] [phone] 12/29/2024 3:00 PM EDT Office Visit [facility] AD[facility] [address] [place] [address] Amina Osborne documented as of this encounter Visit Diagnoses Not on filedocumented in this encounter Additional Health Concerns Assessment Noted Time PHQ-9 Depression Total Score: 0 10/24/19 23 3:39 PM EDT documented as of this encounter Care Teams Solar Energy Systems Engineer Relationship Specialty Start Date End Date Jaz Sams FNP PCP - General Family Medicine 04/10/22 03/27/23 Enedelia Joe MD [address] [place] [address] PCP - General Internal Medicine 03/28/23 documented as of this encounter
--- OUTSIDE RECORDS SUMMARY | 2024-12-18 16:51 | XMS_ITS | Encounter Summary ---
Author Organization [employer] Address [address] [place] [address] 7[address] [place] [address] Care Team Providers Care Vocational Training Teacher Name Role Phone Enedelia Joe MD Primary Care Pro vider Reason for Visit * Reason Onset Date Comments Chart Prep 12/17/2024 Encounter Details Date Type Department Care Team ([facility] st Contact Info) Description 12/17/2024 Telephone [facility] MEDICINE [address] [place], [place] [phone] Enedelia Joe MD [address] [place] [address] Chart Prep Social History Tobacco Use Types Packs/Day Years [...] encounter Miscellaneous Notes * Telephone Encounter - Jennifer Crews MA - 12/17/2024 1:57 PM EDT Chart Prep Labs: done Images: not applicable Vaccines due: Covid Due and Hep A Due Referrals: Gastroenterology Pending appointment on 01/21/2025 @3:15PM. Screenings: Not Applicable Overdue care gaps: Sbirt and Disability documented in this encounter Plan of Treatment Upcoming Encounters Date Type Department Care Team (Late st Contact Info) Description 12/25/2024 1:30 PM EDT Office Visit [facility] MEDICINE [address] [place] [address] Enedelia Joe MD [address] [place] [address] 12/29/2024 3:00 PM EDT Office Visit [facility] CH[facility] ADULT DENTAL [address] [place] [address] Amina Osborne documented as of this encounter Visit Diagnoses Not on filedocumented in this encounter Additional Health Concerns Assessment Noted Time PHQ-9 Depression Total Score: 3 02/07/20 24 10:26 AM EDT documented as of this encounter Care Teams Vocational Training Teacher Relationship Specialty Start Date End Date Enedelia Joe MD [address] [place] [id number] PCP - General Internal Medicine 03/28/23 documented as of this encounter
--- OUTSIDE RECORDS SUMMARY | 2024-12-18 16:51 | XMS_ITS | Encounter Summary ---
Author Organization [employer] Address [address] [facility] 7t [place] [address] Care Team Providers Care [employer] Torque Tester Name Role Phone Jaz Sams TEXTILE SUPERVISOR Primary Care Provider [phone] Enedelia Joe MD Primary Care Pro vider Reason for Visit * Reason Comments Med Change Request Encounter Details Date Type Department Care Team (Late Contact Info) Description 11/26/2022 Refill [facility] MEDICINE [address] [place] [address] Jaz Sams FNP [address] [place] [address] Dept [place] [address] Chronic left-sided thoracic back pain Social History [...] 12/25/2024 1:30 PM EDT Office Visit [facility] MEDICINE [address] [place] [address] Enedelia Joe MD [address] [place] [address] 12/29/2024 3:00 PM EDT Office Visit [facility] CHC ADULT DENTAL [address] [place] [address] Amina Osborne documented as of this encounter Visit Diagnoses Diagnosis Chronic left-sided thoracic back pain documented in this encounter Additional Health Concerns Assessment Noted Time PHQ-9 Depression Total Score: 0 10/24/19 3:39 PM EDT documented as of this encounter Care Teams [employer] Torque Tester Relationship Specialty Start Date End Date Jaz Sams FNP PCP - General Family Medicine 04/10/22 03/27/23 Enedelia Joe MD [address] [place] [address] PCP - General Internal Medicine 03/28/23 documented as of this encounter
--- OUTSIDE RECORDS SUMMARY | 2024-12-18 16:51 | XMS_ITS | Encounter Summary ---
Author Organization [employer] Address [address] [place] [address] 7t [place] [address] Care Team Providers Care Digital Media Representative Name Role Phone Enedelia Joe MD Primary Care Pro vider Reason for Visit * Reason Onset Date Comments Nurse Triage 02/05/2024 Encounter Details Date Type Department Care Team (Late st Contact Info) Description 02/05/2024 Telephone [facility] MEDICINE [address] [place], [place] [phone] Enedelia Joe MD [address] [place] [address] Nurse Triage Social History Tobacco Use Types [...] in November, Pt has been seen in [facility] 12/11/23, 12/13/23, 01/01/24, 01/22/24, all for the [...] to do this. Pt requests to see [facility] [facility], apt requested for 02/07/24. Apt with DENISSE [...] 1:30 PM EDT Office Visit [facility] MEDICINE [address] [place] [address] Enedelia Joe MD [address] [place] [address] 12/29/2024 3:00 PM EDT Office Visit [facility] CHC ADULT DENTAL [address] [place] [address] Amina Osborne documented as of this encounter Visit Diagnoses Not on filedocumented in this encounter Additional Health Concerns Assessment Noted Time PHQ-9 Depression Total Score: 5 02/16/20 10:42 AM EDT documented as of this encounter Care Teams Digital Media Representative Relationship Specialty Start Date End Date Enedelia Joe MD [address] [place] [address] PCP - General Internal Medicine 03/28/23 documented as of this encounter
--- OUTSIDE RECORDS SUMMARY | 2024-12-18 16:51 | XMS_ITS | Encounter Summary ---
Author Organization [employer] Address [address] [place] [address] 7[address] [place] [address] Care Team Providers Care [place] Marshal Name Role Phone Enedelia Joe MD Primary Care Pro vider Reason for Visit * Reason Onset Date Comments Nurse Triage 11/27/2024 Encounter Details Date Type Department Care Team (Late st Contact Info) Description 11/27/2024 Telephone [facility] MEDICINE [address] [place], [place] [phone] Enedelia Joe MD [address] [place] [address] Nurse Triage Social History Tobacco Use Types [...] encounter Miscellaneous Notes * Telephone Encounter - Shakira Hidalgo RN - 11/28/2024 10:52 AM EDT Incoming phone call from pt who stated that she only got 1 fluconazole pill. Advised her of medication instructions and to request refills x2 as there are 2 refills on file. Pt asked about status of [facility] lab, advised her result is still pending. Pt verbalized understanding, to call back clinic PRN. * Telephone Encounter - Shakira Hidalgo RN - 11/28/2024 9:15 AM EDT Telephone call x2 to pt to advise med sent. No answer, left voicemail to call back C. Sent message on MyChart. Pt to call back PRN. * Telephone Encounter - Shakira Hidalgo RN - 11/27/2024 4:18 PM EDT Telephone call to pt to advise on fluconazole Rx instructions. No answer, left voicemail to call back [facility]. Will task to call again. * Telephone Encounter - Alice Nelson RN [...] up here, it is being run in [facility]'s system. Informed that there are no other [...] acuity questions The caller accepted this outcome. [phone] documented in this encounter Plan of Treatment Upcoming Encounters Date Type Department Care Team (Late st Contact Info) Description 12/25/2024 1:30 PM EDT Office Visit [facility] MEDICINE [address] [place] [address] Enedelia Joe MD [address] [place] [address] 12/29/2024 3:00 PM EDT Office Visit [facility] CHC ADULT DENTAL [address] [place] [address] Amina Osborne documented as of this encounter Visit Diagnoses Diagnosis Vaginal discharge Leukorrhea, not specified as infective documented in this encounter Additional Health Concerns Assessment Noted Time PHQ-9 Depression Total Score: 3 02/07/20 24 10:26 AM EDT documented as of this encounter Care Teams United [place] Marshal Relationship Specialty Start Date End Date Enedelia Joe MD [address] [place] [id number] PCP - General Internal Medicine 03/28/23 documented as of this encounter
--- OUTSIDE RECORDS SUMMARY | 2024-12-18 16:51 | XMS_ITS | Encounter Summary ---
Author Organization [facility] Address [address] [place] [address] Care Team Providers Care Associate Professor Of Theology Name Role Phone Yulissa Conway MD Primary Care Provider Unavailabl e [facility], Pcp [facility] Encounter Details Date Type Department Care Team Description 09/09/2015 Release of Information Medical Records [address] [place] [id number] Abstract, Provider Social History Tobacco Use Types Packs/Day Years Used Date Smoking Tobacco: Never Smokeless Tobacco: Never Comments:mom smokes Alcohol Use Standard Drinks/Week Comments Not Asked 0 (1 standard drink = 0.6 oz pur e alcohol) Sex Assigned at Date Recorded Not on file documented as of this encounter Plan of Treatment Not on file documented as of this encounter Visit Diagnoses Not on filedocumented in this encounter Care Teams Associate Professor Of Theology Relationship Specialty Start Date End Date Yulissa Conway MD PCP - General 02/20/00 02/10/18 [facility], Pcp PCP - General Internal Medicine 02/11/18 documented as of this encounter
--- OUTSIDE RECORDS SUMMARY | 2024-12-18 16:51 | XMS_ITS | Clinical Summary ---
Author Organization [employer] Address [address] [place] [address] 7[address] [place] [address] Care Team Providers Care Pineapple Plantation Manager Name Role Phone Enedelia Joe MD Primary Care Pro vider Allergies No known active allergies Medications * This document contains information received from the source organization and may not represent a complete record from that organization. ferrous gluconate (Fergon) 324 (38 Fe) MG tabletIndications:I bryan deficiency Take 1 tablet (324 mg) by mouth every other day. 45 tablet 024 Active ibuprofen (IBU) 800 MG tablet 1 tablet every 8 hours with food for 7 days monthly for cramping 84 tablet 025 Active Additional Information Patient not taking.Reported on 11/20/2024 fluconazole (Diflucan) 150 MG tablet Take 1 tablet (150 mg) by mouth every 3 (three) days. To take 1 tab every 3 days for 3 doses 1 tablet 2 025 Active Sodium Fluoride 1.1 % creamIndications:De ntal caries,Dentin hypersensitivity Dickson teeth for 2 minutes, morning and night. Spit, do not rinse. Do not eat or drink anything for 30 minutes following use. 112 g 3 024 2024 Discontinued(O ther) triamcinolone (Kenalog) 0.1 % creamIndications:Sk in rash Apply topically if needed in the morning and at bedtime (pain and swelling). 30 g 3 07/14/ 024 2024 Discontinued(O ther) fexofenadine (Darby) 180 MG tabletIndications:S kin rash Take 1 tablet (180 mg) by mouth if needed each day (Allergies). 30 tablet 024 2024 Discontinued(O ther) fluconazole (Diflucan) 150 MG tabletIndications:V aginal discharge Take 1 tablet (150 mg) by mouth 1 (one) time for 1 dose. 1 tablet 025 2024 metroNIDAZOLE (Flagyl) 500 MG tablet Take 1 tablet (500 mg) by mouth 2 times daily for 7 days. 14 tablet 025 2024 clotrimazole (Gyne-Lotrimin) 1 % vaginal cream Insert 1 applicator into the vagina in the evening for 3 days. 45 g 025 2024 Discontinued(R eorder (will not trigger notification to Pharmacy)) clotrimazole (Gyne-Lotrimin) 1 % vaginal cream Insert 1 applicator into the vagina in the evening for 3 days. 45 g 025 2024 Active Problems Problem Noted Date Diagnosed Date [...] vaginal douches Schedule a fu appt with ACCOUNTING MANAGER ASSISTANT CONTROLLER Assessment & Plan (01/01/2024 2:43 PM EDT): BV panel ordered today Patient will be contacted with results Dental plaque 03/27/2023 Depression, unspecified 12/19/2022 Overview (02/15/2023): PHQ9 score was 17 on 12/19/22. Met with team same day. Called [facility] phone number. Spoke with therapist a few times. Mood is improved. Still would like referral to therapist outpatient. Assessment & Plan (03/28/2023 10:27 AM EDT): Confirmed referral process 02/15/23 to [facility] Gave pt phone number, she [...] 12/19/22. Met with team same day. Called [facility] phone number. Spoke with therapist a few times. Mood is improved. Still would like referral to therapist outpatient. Assessment & Plan (03/28/2023 10:27 AM EDT): Confirmed referral process 02/15/23 to [facility] Gave pt phone number, she [...] 02/07/2024 Oligomenorrhea 03/09/2021 02/07/2024 Dyshidrotic eczema 08/31/2015 Encounters Date Type Department Care Team Description 12/18/2024 10:00 AM EDT Office Visit [facility] [address] [place] [address] Lucian Hedrick CNM Vaginal discharge (Primary Dx); MEDRANO (nonalcoholic steatohepatitis) 12/18/2024 Travel 12/17/[address] [facility] [address] [place] [address] Enedelia Joe MD Chart Prep 12/11/[address] [facility] [address] [place] [address] Kirsten Blanchard MD 12/11/[address] [facility] [address] [place] [address] Enedelia Joe MD 11/27/[address] [facility] [address] [place] [phone] Enedelia Joe MD 11/27/[address] [facility] [address] [place] [phone] Enedelia Joe MD Nurse Triage 11/21/[address] [facility] [address] [place] [phone] Enedelia Joe MD MEDRANO (nonalcoholic steatohepatitis) (Primary Dx) 11/20/2024 2:15 PM EDT Office Visit [facility] [address] [place] [address] Enedelia Joe MD Vaginal discharge (Primary Dx); Dysuria; Dietary counseling; Exercise counseling; MEDRANO (nonalcoholic steatohepatitis); Recurrent candidiasis of vagina; Health care maintenance 11/20/[address] [facility] [address] [place] [phone] Enedelia Joe MD 11/20/2024 Travel 11/19/[address] [facility] [address] [place] [address] Enedelia Joe MD Nurse Triage 10/31/2024 2:00 PM EDT Office Visit [facility] [address] [place] [address] Michael Jj DMD Dental caries (Primary Dx) 10/24/[address] [facility] [address] [place] [address] Enedelia Joe MD May recall 09/25/2024 8:00 AM EST Office Visit [facility] [address] [place] [address] Michael Jj DMD Dental caries (Primary Dx) from Last 3 Months Immunizations Name Administration Dates Next Due DTaP 08/12/2002, 9,1997,11/04,1997 DTaP / HiB / IPV 11/09/1998, 8,1997,11/04 HPV, Quadrivalent 07/29/2009,03/26/2009,01/23/20 09 Hep B, Adolescent or Pediatric 04/08/1998,1996,1997 Hib (HbO) 11/09/1998, 8,1997,11/04 IPV 08/12/2002, 8,1997,09/08 Influenza injectable quadriv alent preservative free 09/01/2021,07/28/2019,04/15/2016 Influenza, IIV3, injectable 08/31/2015,1 09/24/2011,06/06/2011,08/09,05/25/2008,07/13/2007,06/17/2005 ,07/21/2003,08/13/2000 Influenza, Unspecified 04/27/2016 Influenza, injectable, quadr ivalent, preservative free, pediatric 05/11/2014,05/13/2010 Influenza, seasonal, injecta ble, preservative free 07/25/2024,04/17/2013 MMR 06/26/2001,10/11/1998 Meningococcal B, Omv 07/28/2019,06/29/2017 Meningococcal MCV4P [id number]-135 09/04/2014,03/26/20 09 Moderna Covid-19 Vaccine 12+ 01/12/2021,12/16/19 21 Novel [id number], preservative-free 07/23/2009 Pneumococcal Conjugate PCV 7 04/11/2000 [...] Sign Reading Time Taken Comments Blood Pressure 121/80 12/18/2024 10:11 AM EDT Pulse 68 12/18/2024 10:11 AM EDT Temperature 36.3 ??C (97.4 ??F) 12/18/2024 10:11 AM E DT Respiratory Rate 16 12/18/2024 10:11 AM EDT Oxygen Saturation 99% 12/18/2024 10:11 AM EDT Inhaled Oxygen Concentration - - Weight 66 kg (145 lb 9.6 oz) 12/18/2024 10:11 AM EDT Height 162.6 cm (5' 4 ) 12/18/2024 10:11 AM EDT Body Mass Index 24.99 12/18/2024 10:11 AM EDT Plan of Treatment Upcoming Encounters Date Type Department Care Team (Late st Contact Info) Description 12/25/2024 1:30 PM EDT Office Visit [facility] [address] [place] [phone] Enedelia Joe MD [address] [place] [address] 12/29/2024 3:00 PM EDT Office Visit [facility] [address] [place] [address] Amina Osborne Health Maintenance Due Date Last [...] 03/31/2022, Additional history exists Family Planning (PISQ) 12/18/2025 12/18/2024 Tobacco Screening 12/18/2025 12/18/2024 Pap Smear 11/04/2026 11/05/2023, 04/0 12/2020, 11/12/2020 [...] 09/04/2014, 009 Influenza Vaccine Completed 07/25/2024, , 07/28/2019, Additional history exists HIV Screening Completed 11/20/2024, [...] Procedure Name Priority Date/Time Associated Diagnosis Comments POCT WET MOUNT/VICTORINO Routine 12/18/2024 10 :29 AM EDT Vaginal discharge VON WILLEBRAND ANTIGEN, MULTIMERIC Routine 11/27/2024 12:37 PM EDT Menorrhagia with regular cycle SYPHILIS SCREEN Routine 11/20/2024 2:44 PM EDT [...] Routine 09/25/2024 8:00 AM EST Dental caries PROPHYLAXIS - ADULT Routine 06/26/2024 9 :00 [...] Recently Relevant to Health Maintenance Results * POCT fern test, vaginal fluid manually resulted (12/18/2024 10:29 AM EDT) VICTORINO Prep Negative Comment:pH 4.5 neg whiff neg clue neg trich neg yeast neg wbc Vaginal Fluid Vaginal structure / Unknown 12/18/2024 10:29 AM EDT Lucian Hedrick CNM POINT OF CARE TEST ENTER/ EDIT ORDERABLES Final Result * von Willebrand Antigen, Multimeric (11/27/2024 12:37 PM EDT) Pathologist [facility] [place] Von Willebrand Ag, Multimeric see note [facility] Comment:Normal distribution of von Willebrand Factor antigenmultimers.von Willebrand Factor multimer reviewed by: Kathleen Reese, Ph.D.This test was developed and its analytical performancecharacteristics have been determined by [employer] [place], [place]. It hasnot been cleared or approved by the U.S. Food and DrugAdministration. This assay has been validated pursuantto the CLIA regulations and is used for clinicalpurposes.THIS TEST WAS PERFORMED AT:[id number] [place] [id number] REYNA MD,PHD Blood Venous blood specimen / Unknown 11/27/2024 12:37 PM EDT 11/27/2024 12:37 PM EDT us Lucian FRANK LAB BLOOD ORDERABLES Matilda l Result Performing Organization Address City/[facility]/ZIP Co de Phone Number [facility] [address] [place] [phone] * Syphilis Screen (11/20/2024 2:44 PM EDT) Pathologist [facility] [place] Syphilis Screen Nonreactive Nonreactive [facility] Blood 11/20/2024 2:44 PM EDT 11/20/2024 3:59 PM EDT us Enedelia Chahal MD LAB BLOOD ORDERAB LES Final Result Performing Organization Address [facility]/ZIP Co de Phone Number [facility] [address] [place] [phone] * CBC auto differential (11/20/2024 2:44 PM EDT) [facility] White Blood Count 8.4 4.8 - 10.8 X10*3/uL [facility] Red Blood Count 4.69 4.20 - 5.50 X10*6/uL [facility] Hemoglobin 13.7 12.0 - 16.0 g/dl [facility] Hematocrit 41.7 37.0 - 47.0 % [facility] Mean Corpuscular Volume 88.9 80.0 - 98.0 fL [facility] Mean Corpuscular Hemoglobin 29.2 27.0 - 33.0 pg [facility] Mean Corpuscular HGB Conc 32.9 31.0 - 35.0 g/dl [facility] Red Cell Distribution Width 12.1 11.0 - 16.0 % [facility] Platelet Count 375 160 - 400 X10*3/uL [facility] Mean Platelet Volume 10.2 9.4 - 12.3 fL [facility] Neutrophils Percent Auto 52.8 45 - 73 % [facility] Imm Gran Pct Auto 0.2 0.0 - 0.4 % [facility] Lymphocytes Percent Auto 39.5 20 - 40 % [facility] Monocytes Percent Auto 5.5 2 - 11 % [facility] Eosinophils Percent Auto 1.3 0 - 4 % [facility] Basophils Percent Auto 0.7 0 - 2 % [facility] NRBC Pct Auto 0.0 0.0 - 0.2 /100WBC [facility] Neutrophils Absolute Auto 4.4 2.0 - 8.3 x10*3/uL [facility] Imm Gran Abs Auto 0.02 0.00 - 0.03 X10*3/uL [facility] Lymphocytes Absolute Auto 3.3 1.2 - 4.9 X10*3/uL [facility] Monocytes Absolute Auto 0.5 0.1 - 1.2 X10*3/uL [facility] Eosinophils Absolute Auto 0.1 0.0 - 0.4 X10*3/uL [facility] Basophils Absolute Auto 0.1 0.0 - 0.2 X10*3/uL [facility] NRBC Abs Auto 0.000 0.0 - 0.012 X10*3/uL [facility] Blood Venous blood specimen / Unknown 11/20/2024 2:44 PM EDT 11/20/2024 3:59 PM EDT Lucian Hedrick [facility] LAB BLOOD ORDERABLES Matilda l Result Performing Organization Address [facility]/ZIP Co de Phone Number [facility] [address] [place] [phone] * Hepatitis C Antibody with Reflex to HCV, RNA, Quantitative, Real-Time PCR (11/20/2024 2:44 PM EDT) Hepatitis C Antibody Nonreactive Nonreactive [facility] Comment:Antibodies to HCV no t detected; does not exclude early acuteHCV infection. Blood Venous blood specimen / Unknown 11/20/2024 2:44 PM EDT 11/20/2024 3:59 PM EDT Enedelia Chahal MD LAB BLOOD ORDERAB LES Final Result Performing Organization Address [facility]/ZIP Co de Phone Number [facility] [address] [place] [phone] * Iron And Total Iron Binding Capacity (11/20/2024 2:44 PM EDT) Iron 57 30 - 160 mcg/dL [facility] Total Iron Binding Capacity 287 228 - 428 mcg/dL [facility] Percent Iron Saturation 20 15 - 50 % [facility] Unsaturated Iron Binding 230 ug/dL [facility] Blood Venous blood specimen / Unknown 11/20/2024 2:44 PM EDT 11/20/2024 3:59 PM EDT Lucian FRANK LAB BLOOD ORDERABLES Matilda l Result Performing Organization Address [facility]/ZIP Co de Phone Number [facility] [address] [place] [phone] * Hepatitis B surface antigen, EIA (11/20/2024 2:44 PM EDT) [facility] Hepatitis B Surface Ag Negative Negative [facility] Blood Venous blood specimen / Unknown 11/20/2024 2:44 PM EDT 11/20/2024 3:59 PM EDT us Enedelia Chahal MD LAB BLOOD ORDERAB LES Final Result Performing Organization Address City/[facility]/ZIP Co de Phone Number [facility] [address] [place] [phone] * HIV-1/2 Antigen and Antibodies, Fourth Generation, with Reflexes (11/20/2024 2:44 PM EDT) [facility] HIV AB/AG Nonreactive Nonreactive [facility] Comment:HIV-1 p24 Ag and/or HIV-1/HIV-2 Ab not detected.A test result that is nonreactive does not exclude thepossibility of exposure to or infection with HIV-1 and/orHIV-2. Nonreactive results in this assay for individualswith prior exposure to HIV-1 and/or HIV-2 may be due toantigen and antibody levels that are below the limit ofdetection of this assay.The [employer] HIV Ag/Ab Combo assay result andsupplemental assay results should be interpreted inconjunction with the patient's clinical presentation,history and other laboratory results. If the results areinconsistent with clinical evidence, additional testing issuggested to confirm the result. Blood Venous blood specimen / Unknown 11/20/2024 2:44 PM EDT 11/20/2024 3:59 PM EDT us Enedelia Chahal MD LAB BLOOD ORDERAB LES Final Result Performing Organization Address [facility]/ZIP Co de Phone Number [facility] [address] [place] [phone] * Partial Thromboplastin Time, Activated (APTT) (11/20/2024 2:44 PM EDT) [facility] Partial Thromboplastin Time 32.6 26.0 - 36.8 SEC [facility] Comment:For information rega rding the monitoring of direct thrombininhibitors, please refer to Pharmacy. Blood Venous blood specimen / Unknown 11/20/2024 2:44 PM EDT 11/20/2024 3:59 PM EDT [facility] LAB BLOOD ORDERABLES Matilda l Result Performing Organization Address City/[facility]/ZIP Co de Phone Number [facility] [address] [place] [phone] * Prothrombin Time-INR (11/20/2024 2:44 PM EDT) Prothrombin Time 11.2 10.9 - 12.4 SEC [facility] INTERNATIONAL NORM RATIO 1.0 0.9 - 1.1 [facility] Comment:INTERNATIONAL NORMAL IZED RATIO (INR) [...] 2:44 PM EDT 11/20/2024 3:59 PM EDT [facility] LAB BLOOD ORDERABLES Matilda l Result Performing Organization Address City/[facility]/ZIP Co de Phone Number [facility] [address] [place] [phone] [phone] * Ferritin (11/20/2024 2:44 PM EDT) Ferritin 28 10 - 122 ng/mL [facility] Blood Venous blood specimen / Unknown 11/20/2024 2:44 PM EDT 11/20/2024 3:59 PM EDT us Lucian FRANK LAB BLOOD ORDERABLES Matilda l Result [facility] [address] [place] [phone] [phone] * (ABNORMAL) Comprehensive Metabolic Panel (11/20/2024 2:44 PM EDT) Sodium 141 135 - 145 mmol/L [facility] Potassium 3.8 3.3 - 5.1 mmol/L [facility] Chloride 107 96 - 108 mmol/L [facility] Carbon Dioxide 26 22 - 29 mmol/L [facility] Anion Gap 12 12 - 20 [facility] Urea Nitrogen (BUN) 7(L) 9 - 16 mg/dL [facility] Creatinine, Serum 0.70 0.5 - 1.4 mg/dL [facility] Estimated Glomerular Filt Rate >60 [facility] Comment:Chronic Kidney Disea se: Estimated GFR < 60 mL/min/[id number] Kidney Disease: Estimated GFR < 15 mL/min/1.73m2 Glucose 86 60 - 115 mg/dL [facility] Calcium 9.3 8.4 - 10.2 mg/dL [facility] Bilirubin, Total 0.4 0.0 - 1.0 mg/dL [facility] Aspartate Amino Transferase 55(H) 5 - 31 U/L [facility] Alanine Aminotransferase 20 0 - 31 U/L [facility] Total Protein 7.7 6.5 - 8.0 g/dL [facility] Albumin Level 4.5 3.5 - 5.0 g/dL [facility] Alkaline Phosphatase 78 39 - 117 U/L [facility] Blood Venous blood specimen / Unknown 11/20/2024 2:44 PM EDT 11/20/2024 3:59 PM EDT us Enedelia Chahal MD LAB BLOOD ORDERAB LES Final Result [facility] [address] [place] [phone] * POCT Urine (11/20/2024 2:17 PM EDT) Preg Test, Ur Negative Negative, Indeterminate, None Detected, Invalid, Specimen unsatisfactory for evaluation, Weakly Positive QC Media Lot # [id number] Lot# Expiration Date [id number] Urine 11/20/2024 2:17 PM EDT Enedelia Chahal [...] Media Lot # [id number] Lot# Expiration Date [id number] Urine 11/20/2024 2:12 PM EDT Enedelia Chahal MD POINT OF CARE THIAGO T ENTER/EDIT ORDERABLES Final Result * (ABNORMAL) Bacterial Vaginosis (11/20/2024 12:47 PM EDT) TRICHOMONAS VAGINALIS DETECTION BY PCR NOT DETECTED Not Detect [facility] BACTERIAL VAGINOSIS DETECTION BY PCR POSITIVE(A) Negative [facility] Comment:The BV organism targ ets [...] GROUP DETECTION BY PCR DETECTED(A) Not Detect [facility] Alee glab krusei PCR NOT DETECTED Not Detect [facility] 11/20/2024 12:4 7 PM EDT 11/20/2024 4:07 PM EDT Enedelia Chahal MD LAB MICROBIOLOGY - GENERAL ORDERABLES Final Result [facility] [address] [place] [phone] * Chlamydia/N. Gonorrhoeae RNA, TMA, Urogenitial (11/20/2024 12:47 PM EDT) CT PCR NOT DETECTED Not Detect. [facility] Comment:A not detected test result [...] psychologicalconsequences. NG PCR NOT DETECTED Not Detect. [facility] Comment:A not detected test result [...] 12:47 PM EDT 11/20/2024 4:08 PM EDT [facility] - 11/21/2024 4:10 AM EDT Vaginal us Enedelia Chahal MD LAB MICROBIOLOGY - GENERAL ORDERABLES Final Result [facility] [address] [place] [phone] * Pap Smear (11/05/2023 10:05 AM EDT) Swab Cervix uteri structure / Unknown 11/05/2023 10:05 AM EDT 11/06/2023 11:50 AM EDT [facility] - 11/18/2023 5:50 PM EDT ----- ------- Name: Jordyn Lara ?Age/Sex: 28/F ? : 1995 Unit#: [id number] ?? Attend Dr: LUCIAN HEDRICK CNM ?Re11/05/23 ?Status: DEP REF ? Location: [facility] ? Disch: ? ----- ------- SPEC : [id number] ? RECD: 11/06/23-1149 ? STATUS: ??SOUT ? REQ NUM: [id number] ? SARAH BETH: 11/05/23-1004 ? SUBM DR: LUCIAN HEDRICK CNM ? ENTERED: ??11/06/23-4 ?SP TYPE: Pap Smr ?OTHR DR: ? ORDERED: ??Pap Smear ? Interpretation ?? Satisfactory for evaluation. ?? Negative for intraepithelial lesion or malignancy. ?Clinical Information LMP: Unknown date Previous PAP test: Unknown date/findings ? Material Received ?? ThinPrep-Vaginal/Cervical ----- ------- Signed (signature on file) Clementine Haas 11/18/23 1750 ? ----- ------- ? END OF REPORT ? us Lucian Hedrick CNM LAB CYTOLOGY ORDERABLES F inal Result [facility] [address] [place] [phone] from Last 3 Months or Most Recently Relevant to Health Maintenance Insurance [facility] [place] [facility] PARTIAL (MEDICAID) [address] [place] [address] [place] Care Teams Pineapple Plantation Manager Relationship Specialty Start Date End Date Enedelia Joe MD [address] [place] [phone] PCP - General Internal Medicine 03/28/23
--- OUTSIDE RECORDS SUMMARY | 2024-12-18 16:51 | XMS_ITS | Encounter Summary ---
Author Organization [employer] Address [address] [place] [address] 7[address] [place] [address] Care Team Providers Care Sock Examiner Name Role Phone Jaz Sams Primary Care Provider [phone]- [phone] Enedelia Joe MD Primary Care Pro vider Encounter Details Date Type Department Care Team (Latest Contact Info) Description 03/31/[address] [facility] CONVERSIONS Dental, Provider, DDS Social [...] Encounters Date Type Department Care Team ( st Contact Info) Description 12/25/2024 1:30 PM EDT Office Visit [facility] MEDICINE [address] [place] [address] Enedelia Joe MD [address] [place] [address] 12/29/2024 3:00 PM EDT Office Visit [facility] ADULT DENTAL [address] [place] [address] Amina Osborne documented as of this encounter Visit Diagnoses Not on filedocumented in this encounter Care Teams Sock Examiner Relationship Specialty Start Date End Date Jaz Sams FNP PCP - General Family Medicine 04/10/22 03/27/23 Enedelia Joe MD [address] [place] [address] PCP - General Internal Medicine 03/28/23 documented as of this encounter
--- OUTSIDE RECORDS SUMMARY | 2024-12-18 16:51 | XMS_ITS | Encounter Summary ---
Author Organization [employer] Address [address] [facility] [address] [place] [address] Care Team Providers Care Sap Basis Name Role Phone Enedelia Joe MD Primary Care Pro vider Encounter Details Date Type Department Care Team (Latest Contact Info) Description 12/18/2024 Travel Social History Tobacco Use Types Packs/Day [...] Description 12/25/2024 1:30 PM EDT Office Visit [facility] MEDICINE [address] [place] [phone] Enedelia Joe MD [address] [place] [address] 12/29/2024 3:00 PM EDT Office Visit [facility]ULT [facility] [address] [place] [address] Amina Osborne documented as of this encounter Visit Diagnoses Not on filedocumented in this encounter Additional Health Concerns Assessment Noted Time PHQ-9 Depression Total Score: 3 02/07/20 24 10:26 AM EDT documented as of this encounter Care Teams Sap Basis Relationship Specialty Start Date End Date Enedelia Joe MD [address] [place] [phone] PCP - General Internal Medicine 03/28/23 documented as of this encounter
--- OUTSIDE RECORDS SUMMARY | 2024-12-18 16:51 | XMS_ITS | Encounter Summary ---
Author Organization [email or web address] Address [address] [place] [address] [address] [place] [address] Care Team Providers Care Weave Room Supervisor Name Role Phone Jaz Sams Primary Care Provider [phone]- [phone] Enedelia Joe MD Primary Care Pro vider [...] EDT Office Visit [facility] [address] [place] [address] Enedelia Joe MD [address] [place] [address] 12/29/2024 3:00 PM EDT Office Visit [facility] ADULT [facility] [address] [place] [address] Amina Osborne documented as of this encounter Visit Diagnoses Not on filedocumented in this encounter Care Teams Weave Room Supervisor Relationship Specialty Start Date End Date Jaz Sams FNP PCP - General Family Medicine 04/10/22 03/27/23 Enedelia Joe MD [address] [place] [address] PCP - General Internal Medicine 03/28/23 documented as of this encounter
--- OUTSIDE RECORDS SUMMARY | 2024-12-18 16:51 | XMS_ITS | Encounter Summary ---
Author Organization [facility] Address [address] [facility] [place] [address] Care Team Providers Care Fine Grade Bulldozer Operator Name Role Phone Yulissa Conway MD Primary Care Provider Yulissa Martin MD Primary Care Provider Enedelia Bustillos Primary Care Provider [phone] [facility], Pcp Primary Care Provider Mulugeta pulido Encounter Details Date Type Department Care Team Description 1997 [facility] Medical Records [address] [place] [address] Social History Tobacco Use Types Packs/Day Years [...] on filedocumented in this encounter Care Teams Fine Grade Bulldozer Operator Relationship Specialty Start Date End Date Yulissa Conway MD PCP - General 02/20/00 02/10/18 Yulissa Conway MD PCP - General 02/10/00 02/19/00 Enedelia Jackson [address] [place] [id number] PCP - General 1997 02/09/00 [facility], Pcp [address] [place] [id number] PCP - General Internal Medicine 02/11/18 documented as of this encounter
--- OUTSIDE RECORDS SUMMARY | 2024-12-18 16:51 | XMS_ITS | Encounter Summary ---
Author Organization [facility] Address [address] [place] [address] [address] [place] [address] Care Team Providers Care Aerodynamics Professor Name Role Phone Enedelia Joe MD Primary Care Pro vider Reason for Referral * Consultation (Routine) - Authorized Specialty Diagnoses / Procedures Referred By Megan bocanegra Referred To Contact Nutrition Diagnoses MEDRANO (nonalcoholic steatohepatitis) Simran Robledo CNM [address] [place] [address] Phone: tel: fax: Referral ID Status Reason Start Date Expiration Date Visits Requested Visits Authorized [id number] Authorized Consult and Treat 12/18/2024 12/18/2025 1 1 Reason for Visit * Reason Comments Gynecologic Exam Encounter Details Date Type Department Care Team ([facility] st Contact Info) Description 12/18/2024 10:00 AM EDT Office Visit [facility] [address] [place] [address] Simran Robledo CNM [address] [place] [address] Vaginal discharge (Primary Dx); MEDRANO (nonalcoholic steatohepatitis) Social History Tobacco Use Types Packs/Day Years [...] Mass Index 24.99 12/18/2024 10:11 AM EDT documented in this encounter Progress Notes * Simran Robledo CNM - 12/18/2024 10:00 AM EDT Subjective Patient ID: Jordyn Lara is a 29 y.o. female who presents for vaginal symptoms Notes improvement after extended course fluconazole and baking soda paste but would like confirmation that vulvovaginal candidiasis/bacterial vaginosis resolved. Unsure if partner is circumcised. Bacterial vaginosis/vulvovaginal candidiasis 11/2024 Bacterial vaginosis/vulvovaginal candidiasis 07/2024 Vulvovaginal candidiasis 03/2024 Vulvovaginal candidiasis 02/2024 Bacterial vaginosis 01/2024 Bacterial vaginosis/vulvovaginal candidiasis 12/2023 AST 55 in 11/2024. Referred to GI for MEDRANO. Has appt 01/21/2025. Would like to see human resources professional as well.Reviewed avoid processed foods, alcohol, Tylenol. Has used fluconazole, metronidazole, boric acid, clotrimazole. Gonorrhea/Chlamydia/trichomonas negative 11/2024. History of cytolytic vaginosis as well. Lifelong heavy menses. No worrisome findings on ultrasound 11/2023. Previously on NET progestin onlypill, noted irregular bleeding, some mood changes. Combined oral contraceptive pill worsened migraines. Had unsuccessful IUD insertion x 3. Would prefer to avoid hormonal treatments. Rx'd cyclical NSAIDs at last visit with me. She hasn't been taking, uses Excedrin as she gets menstrual migraines. Normal glucose and hemoglobin A1C 11/2023. HIV neg 11/2023. Normal CBC and TSH 03/2024. Normal vWB testing. Pap NIL 10/2023. Review of Systems Constitutional: Negative for chills and fever. Genitourinary: Negative for dyspareunia, dysuria, vaginal bleeding, vaginal discharge and vaginal pain. Objective BP 121/80 (BP Location: Left arm, Patient Position: Sitting, BP Cuff Size: Adult) Pulse 68 Temp97.4 ??F (36.3 ??C) (Temporal) Resp 16 Ht 5' 4 (1.626 m) Wt 145 lb 9.6 oz (66 kg) LMP 12/03/2024 (Exact Date) SpO2 99% BMI 24.99 kg/m?? Physical Exam Constitutional: Appearance: Normal appearance. Genitourinary: General: Normal vulva. Labia: Right: No rash, tenderness, lesion or injury. Left: No rash, tenderness, lesion or injury. Comments: Bimanual and speculum exam deferred. Blind swabs collected, declines self collection Neurological: Mental Status: She is alert. Psychiatric: Mood and Affect: Mood normal. Behavior: Behavior normal. Assessment/Plan Diagnoses and all orders for this visit: Vaginal discharge - POCT fern test, vaginal fluid manually resulted - Bacterial Vaginosis Panel Normal wet mount today. Will send swab and treat as indicated. Reviewed consideration of partner treatment for vulvovaginal candidiasis/bacterial vaginosis if noted. She will discuss with him. Consider suppressive fluconazole if vulvovaginal candidiasis with close monitoring of LFTs. Send me picture of Excedrin ingredients (there are many formulations). If ASA, stop. If NSAID in there, continue as is. If no NSAID or ASA, may use ibuprofen as I rx'd for menses. MEDRANO (nonalcoholic steatohepatitis) - Referral to Nutrition Therapy; Future Referred to RD at her request. Keep GI appt, avoid alcohol, Tylenol, processed foods. documented in this encounter Plan of Treatment Upcoming Encounters Date Type Department Care Team (Late st Contact Info) Description 12/25/2024 1:30 PM EDT Office Visit [facility] [address] [place] [address] Enedelia Joe MD [address] [place] [address] 12/29/2024 3:00 PM EDT Office Visit [facility] [address] [place] [address] Amina Osborne Scheduled Orders Name Type Priority Associated Diagnoses Orde r Schedule Bacterial Vaginosis Panel Microbiology Routine Vaginal discharge Ordered: 12/18/2024 Scheduled Referrals Name Type Priority Associated Diagnoses Orde r Schedule Referral to Nutrition Therapy Outpatient Referral Routine MEDRANO (nonalcoholic steatohepatitis) Expected: 12/18/2024 (Approximate), Expires: 12/18/2025 documented as of this encounter Procedures Procedure Name Priority Date/Time Associated Diagnosis Comments POCT WET MOUNT/VICTORINO Routine 12/18/2024 10 :29 AM EDT Vaginal discharge documented in this encounter Results * POCT fern test, vaginal fluid manually resulted (12/18/2024 10:29 AM EDT) VICTORINO Prep Negative Comment:pH 4.5 neg whiff neg clue neg trich neg yeast neg wbc Vaginal Fluid Vaginal structure / Unknown 12/18/2024 10:29 AM EDT Simran FRANK POINT OF CARE TEST ENTER/ EDIT ORDERABLES Final Result documented in this encounter Visit Diagnoses Diagnosis Vaginal discharge- Primary Leukorrhea, not specified as infective MEDRANO (nonalcoholic steatohepatitis) Other chronic nonalcoholic liver disease documented in this encounter Additional Health Concerns Assessment Noted Time PHQ-9 Depression Total Score: 3 02/07/20 24 10:26 AM EDT documented as of this encounter Care Teams Aerodynamics Professor Relationship Specialty Start Date End Date Enedelia Joe MD [address] [place] [id number] PCP - General Internal Medicine 03/28/23 documented as of this encounter
--- OUTSIDE RECORDS SUMMARY | 2024-12-18 16:51 | XMS_ITS | Encounter Summary ---
Author Organization [employer] Address [address] [place] [address] [address] [place] [address] Care Team Providers Care Blue Line Trimmer Name Role Phone Jaz Sams Carol ROPER Primary Care Provider [phone] Enedelia Joe MD Primary Care Pro vider Encounter Details Date Type Department Care Team (Late st Contact Info) Description 03/14/2023 Orders Only [facility] [address] [place], [place] [phone] Ken Ramires MD [address] [place] [address] Social History Tobacco Use Types Packs/Day Years [...] 1:30 PM EDT Office Visit [facility] [address] [place] [address] Enedelia Joe MD [address] [place] [address] 12/29/2024 3:00 PM EDT Office Visit [facility] [address] [place] [address] Amina Osborne documented as of this encounter Visit Diagnoses Not on filedocumented in this encounter Additional Health Concerns Assessment Noted Time PHQ-9 Depression Total Score: 5 02/16/20 23 10:42 AM EDT documented as of this encounter Care Teams Blue Line Trimmer Relationship Specialty Start Date End Date Jaz Sams FNP PCP - General Family Medicine 04/10/22 03/27/23 Enedelia Joe MD [address] [place] [id number] PCP - General Internal Medicine 03/28/23 documented as of this encounter
[2024-12-19 11:23] LABS: Bacterial Vaginosis PCR POSITIVE (Negative); Candida Group PCR DETECTED (Not Detect); Candida glab krusei PCR NOT DETECTED (Not Detect); Trichomonas vaginalis PCR NOT DETECTED (Not Detect)
== END 2024-12-18 16:49 | disposition home or self-care (01) ==
LOC: HO.HHCLNP 16:48
PROVIDERS: Visit Provider Advanced Practice Midwife
DX: N89.8 Other specified noninflammatory disorders of vagina (principal)
CPT/HCPCS: 81515

== ENCOUNTER 2025-01-08 16:21 | Outpatient (REF) | payer OTHER, SELFPAY ==
--- OUTSIDE RECORDS SUMMARY | 2025-01-08 16:23 | XMS_ITS | Encounter Summary ---
Author Organization [employer] Address [address] [place] [address] [address] [place] [address] Care Team Providers Care Cloth Tester Name Role Phone Enedelia Joe MD Primary Care Pro vider Encounter Details Date Type Department Care Team (Late st Contact Info) Description 12/11/2024 Orders Only [facility] [address] [place] [phone] Kirsten Blanchard MD [address] [place], [place] [phone] Social History Tobacco Use Types Packs/Day Years [...] documented as of this encounter Care Teams Cloth Tester Relationship Specialty Start Date End Date Enedelia Joe MD [address] [place] [id number] PCP - General Internal Medicine 03/28/23 documented as of this encounter
[2025-01-08 21:31] LABS: Bacterial Vaginosis PCR NEGATIVE (Negative); Candida Group PCR NOT DETECTED (Not Detect); Candida glab krusei PCR NOT DETECTED (Not Detect); Trichomonas vaginalis PCR NOT DETECTED (Not Detect)
== END 2025-01-08 16:22 | disposition home or self-care (01) ==
LOC: HO.HHCLNP 16:21
PROVIDERS: Visit Provider Advanced Practice Midwife
DX: N89.8 Other specified noninflammatory disorders of vagina (principal)
CPT/HCPCS: 81515

== ENCOUNTER 2025-01-21 15:12 | Outpatient (REF) | payer OTHER, SELFPAY ==
[2025-01-21 17:15] LABS: C Reactive Protein 0.26 mg/dL (< or = 0.50)
[2025-01-22 10:48] LABS: Ceruloplasmin 28 mg/dL (14-48)
[2025-01-27 19:44] LABS: Class Almond 0; Class Brazil Nut 0; Class Cashew 0; Class Codfish 0; Class Cow's Milk 0; Class Egg white 0; Class Hazelnut 0; Class Macadamia Nut 0; Class Peanut 0; Class Salmon 0; Class Scallop 0; Class Sesame Seed 0; Class Shrimp 0/1; Class Soybean 0; Class Tuna 0; Class Walnut 0; Class Wheat 0; F001-IgE Egg White <0.10 kU/L; F002-IgE Milk <0.10 kU/L; F003-IgE Codfish <0.10 kU/L; F004-IgE Wheat <0.10 kU/L; F010-IgE Sesame Seed <0.10 kU/L; F013-IgE Peanut <0.10 kU/L; F014-IgE Soybean <0.10 kU/L; F017-IgE Hazelnut (Filbert) <0.10 kU/L; F018-IgE Brazil Nut <0.10 kU/L; F020-IgE Almond <0.10 kU/L; F024-IgE Shrimp 0.31 kU/L; F040-IgE Tuna <0.10 kU/L; F041 IgE Salmon <0.10 kU/L; F202-IgE Cashew Nut <0.10 kU/L; F256-IgE Walnut <0.10 kU/L; F338-IgE Scallop <0.10 kU/L; F345-IgE Macadmia Nut <0.10 kU/L
[2025-01-29 11:38] LABS: Soluble Liver Ag Autoantibody <20.1 U (0.0-20.0)
[2025-01-29 21:44] LABS: Liver Kidney Microsomal Ab <=20.0 U (<=20.0)
== END 2025-01-21 15:13 | disposition home or self-care (01) ==
LOC: HO.LAB 15:12
PROVIDERS: PCP Registered Nurse; Visit Provider Nurse Practitioner
DX: R74.01 Elevation of levels of liver transaminase levels (principal); R11.0 Nausea; R19.7 Diarrhea, unspecified; Z91.09 Other allergy status, other than to drugs and biological substances
CPT/HCPCS: 36415; 82390; 83520; 86003; 86140; 86376

== ENCOUNTER 2025-01-21 15:12 | Outpatient (AMB) | payer OTHER, SELFPAY ==
--- NOTE | 2025-01-21 15:16 | A.OFFVIS_ITS ---
Vital Signs 01/21/25 15:23 Height 5 ft 3 in Weight 142 lb BMI 25.2 BP 140/90 H Blood Pressure Location Rt brachial Position Sitting Pulse 66 Pulse Source Pulse Oximeter Pulse Oximetry (%) 100 Oxygen Delivery Method Room Air Intake Visit Reasons: [place] , Elevated LFTs Intake Note: Established patient for mgmt of MEDRANO/Abn LFTs. LUBA 2022. CC; C.O. increase in nausea, lethargy, and general malaise with certain dietary adjustments since LUBA. Pt also notes significant bloating with certain foods such as carbs. Pt has upcoming appt with civil engineering technician next month. 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 Accompanied by: Self / Same As Patient Allergies No Known Allergies Allergy (Verified 01/21/25 15:16) HPI HPI Med[place] , Elevated LFTs: Details: Assessment & Plan (1) Elevated liver transaminase level: Comment: BASELINE LABS 03/28/23 Estimated GFR > 60 Total Bilirubin 0.6 Direct Bilirubin 0.3 AST 45 H ALT 12 Alkaline Phosphatase 83 Alpha Fetoprotein 2.0 Hepatitis A IgM Ab Nonreactive Hep Bs Antigen Negative Hep Bs Antibody GRAYZONE Hep B Core Total Ab Nonreactive Hepatitis C Ab (EIA) Nonreactive Ferritin 38 Ceruloplasmin 27 MALU Screen NEGATIVE Anti-Mitochondrial Ab NEGATIVE Anti-Smooth Muscle Ab <20 Tiss Transglutamin IgG <1.0 Tiss Transglutamin IgA <1.0 PEth 16:0/18.1 (POPEth) NEGATIVE PEth 16:0/18.2 (PLPEth) NEGATIVE HIV 1&2 Ab/P24 Ag 4thGn Nonreactive CURRENT LABS 06/19/23 13:36 Ferritin 38 Total Bilirubin 0.4 Direct Bilirubin 0.1 GGT 11 AST 40 H ALT 11 Alkaline Phosphatase 80 Ceruloplasmin 27 MALU Screen NEGATIVE Anti-Mitochondrial Ab NEGATIVE Anti-Smooth Muscle Ab <20 Tiss Transglutamin IgG <1.0 Tiss Transglutamin IgA <1.0 PEth 16:0/18.1 (POPEth) NEGATIVE PEth 16:0/18.2 (PLPEth) NEGATIVE HIV 1&2 Ab/P24 Ag 4thGn Nonreactive Laboratory Tests 06/19/23 13:36 Ferritin 38 Total Bilirubin 0.4 Direct Bilirubin 0.1 GGT 11 AST 40 H ALT 11 Alkaline Phosphatase 80 Ceruloplasmin 27 MALU Screen NEGATIVE Anti-Mitochondrial Ab NEGATIVE Anti-Smooth Muscle Ab <20 Tiss Transglutamin IgG <1.0 Tiss Transglutamin IgA <1.0 PEth 16:0/18.1 (POPEth) NEGATIVE PEth 16:0/18.2 (PLPEth) NEGATIVE HIV 1&2 Ab/P24 Ag 4thGn Nonreactive ULTRASOUND THE ABDOMEN 04/24/23 FINDINGS: PANCREAS: Normal. ABDOMINAL AORTA: The proximal, mid, and distal segments are normal in caliber. INFERIOR VENA CAVA: Visualized portions are normal. LIVER: Normal. The liver is normal in size. The liver contour is normal. Parenchymal echogenicity is normal. No focal hepatic lesion. There is no intrahepatic biliary duct dilatation seen. GALLBLADDER: Normal. The gallbladder is physiologically distended without evidence of stones, sludge, polyps, wall thickening or pericholecystic fluid. COMMON BILE DUCT: Normal in caliber measuring 0.3 cm in diameter. RIGHT KIDNEY: Normal. No hydronephrosis. No renal calculi or focal parenchymal lesions. The kidney measures 9.9 cm in maximum dimension. LEFT KIDNEY: Normal. No hydronephrosis. No renal calculi or focal parenchymal lesions. The kidney measures 9.0 cm in maximum dimension. SPLEEN: Normal. The spleen measures 8.8 cm in maximum dimension. FREE FLUID: None. US/US abdomen complete IMPRESSION: Unremarkable examination Code(s): R74.01 - Elevation of levels of liver transaminase levels Category: Medical Plan She continues to feel well and has no new health problems to report. I again explained to her that because of her young age we continue to follow her to see if any reversible liver problem arises. So far we have not been able to uncover anything except possible fatty liver in this patient that is neither overweight, nor drinks alcohol. She has also not on any liver toxic medications. Return office visit in 6 months Orders: Orders Comprehensive Met. Panel 01/30/24 R74.01 - Elevation of levels of liver transaminase levels Complete Blood Count Auto Diff 01/30/24 R74.01 - Elevation of levels of liver transaminase levels Alpha Fetoprotein 01/30/24 R74.01 - Elevation of levels of liver transaminase levels Gamma Glutamyl Transpeptidase 01/30/24 R74.01 - Elevation of levels of liver transaminase levels US abdomen complete 01/30/24 R74.01 - Elevation of levels of liver transaminase levels LABS Laboratory Tests 02/01/24 11/20/24 10:12 14:44 WBC 8.4 Hgb 13.7 Hct 41.7 MCV 88.9 Plt Count 375 Estimated GFR > 60 Total Bilirubin 0.4 GGT 13 AST 55 H ALT 20 Alkaline Phosphatase 78 Alpha Fetoprotein 1.9 US ABDOMEN 02/20/24 FINDINGS: PANCREAS: Limited visualization of pancreatic tail and head. Imaged portion of pancreatic body is unremarkable. ABDOMINAL AORTA: Unremarkable. INFERIOR VENA CAVA: Visualized portions are normal. LIVER: Unremarkable hepatic echotexture. Normal hepatic contour. Limited visualization. GALLBLADDER: No gallstones. No gallbladder wall thickening. COMMON BILE DUCT: Normal in caliber measuring 0.23 cm in diameter. RIGHT KIDNEY: No hydronephrosis. No renal calculi. Limited visualization. The kidney measures 9.3 cm in maximum dimension. LEFT KIDNEY: No hydronephrosis. No renal calculi. Limited visualization. The kidney measures 9.6 cm in maximum dimension. SPLEEN: Normal. The spleen measures 9.4 cm in maximum dimension. FREE FLUID: None. US/US abdomen complete IMPRESSION: Unremarkable exam. Limited visualization. TODAYS VISIT We review the results and it does not seem that she has liver disease or GB disease. She continues to have nausea with kombucha, prosecco wine with fatigue. She will get bloating with tomatoes, chili flakes and wheat flour. She does not eat meat. She seems convinced that is the alcohol that causes her nausea and this may well be true as alcohol is extremely irritating to the GI system but that does not mean that it is originating with the liver dysfunction. Differential diagnosis is extremely wide and could include peptic ulcer disease amongst many other things. Although she does not appear to have gallstones it is also possible she has a biliary dyskinesia although the severity of her symptoms may not support this as they are relatively mild. Will get more tests for AST elevation, but all other liver parameters seem ok. Get ceruloplasm. Discussed EGD she needs to check with insurance for copay cost. She has diarrhea about 1-2 a week getting rast as well as fecal alexus etc. she says she has had celiac testing in the past that was negative. Reviewed unusual reasons for ast elevation, she used to take a lot of Tylenol come back her migraines in her use but isn't doing that now, another reason this can be up can be related to anorexia and his this point she does relate to me s he had a history of anorexia/bulimia in her past so this is intriguing, she does see an eye doctor every 2 years but I think getting a ceruloplasmin as Rogerio's disease is also in the differential as well some more unusual liver antibody tests, it does not appear that she has any severe trauma or muscle damage contributing to the AST isolation. Overall I am unimpressed with the possibility of liver disease. We could always do a liver biopsy but this would depend on her insurance and what else we uncover. ROV 6 weeks. [facility] Social History Household Members: Friend(s) Housing: Apartment Alcohol intake: current Alcohol intake frequency: holidays/special occasions only Patient Tobacco Use Status: Never used Tobacco Substance Use Type: Marijuana Gender identity: Female Female Reproductive History Menstrual Age of Menarche: 13 Review of Systems Const Reports fatigue, Denies fever(s), Reports malaise, Denies night sweats, Denies poor appetite and Denies weight loss Eyes Details: glasses Reports requires corrective lenses ENT Reports Normal hearing present, Denies dental pain, Denies dysphagia, Denies hearing loss, Denies mouth pain, Denies odynophagia, Denies throat swelling, Den ies tongue swelling and Reports other (Dentition adequate) Card Reports no additional complaints Resp Reports no additional complaints GI Details: Denies abdominal pain, Denies melena, Reports bloating, Denies hematochezia, Denies constipation, Denies GI cramping, Denies dysphagia, Denies excessive flatus, Denies early satiety, Denies heartburn, Denies diarrhea, Reports nausea, Denies odynophagia, Denies vomiting and Denies hematemesis Skin/Breast Denies pruritus, Denies lesions, Denies rash and Denies jaundice Neuro Reports Normal hearing present and Denies Abnormal speech present Endo Reports fatigue Aller/Immun Denies throat swelling and Denies tongue swelling Physical Exam Vital Signs: Last Vital Signs Pulse 66 01/21/25 15:23 BP 140/90 H 01/21/25 15:23 Pulse Ox 100 01/21/25 15:23 Oxygen Delivery Method Room Air 01/21/25 15:23 BMI result Body Mass Index 25.2 Const General: cooperative, no acute distress, well developed and well groomed Nutritional Appearance: average body habitus and well nourished Orientation/consciousness: oriented to person, oriented to place and oriented to time Limitations: No language barrier HEENT Head: Yes normocephalic and Yes atraumatic Eyes General: appearance normal, both eyes and all related structures Pupils: Equal, round and reactive pupils present Neck Neck: Yes normal visual inspection and Yes no lymphadenopathy Thyroid: Thyroid normal Resp Effort & Inspection: normal respiratory effort and able to speak in complete sentences Auscultation: clear to auscultation bilaterally Cardio Rate: regular rate Rhythm: regular rhythm Heart sounds: Normal, physiologic split S2 sound present Peripheral pulses: radial pulses present and posterior tibial pulses present GI Inspection: No distended and No Abdominal panniculus present Palpation (GI): Soft to palpation, nontender, no guarding, not rigid and No hepatosplenomegaly present Percussion: Yes normal to percussion Auscultation: normal bowel sounds Rectal Exam - Female: deferred Skin General skin exam: no rashes or lesions noted, turgor normal, skin not dry, no jaundice, No spider nevi and no striae Rashes: no rashes Nails: normal Neuro General: oriented to person, oriented to place and oriented to time Cranial nerves: Yes Equal, round and reactive pupils present and Yes Normal hearing present Speech: No Abnormal speech present Extrem General: Yes normal to inspection, No clubbing, No cyanosis and No edema Psych Appearance: grossly normal and well kempt Mental Status: mental status grossly normal Speech and movement: Normal speech and movement present Affect: normal affect Attitude: cooperative Thought process: Normal thought process present and not confabulating Thought content: Normal thought content present Insight: Limited insight present (Psych) Judgement: Limited judgement present (Psych) Assessment & Plan Assessment & Plan (1) Elevated liver transaminase level: Comment: BASELINE LABS 03/28/23 Estimated GFR > 60 Total Bilirubin 0.6 Direct Bilirubin 0.3 AST 45 H ALT 12 Alkaline Phosphatase 83 Alpha Fetoprotein 2.0 Hepatitis A IgM Ab Nonreactive Hep Bs Antigen Negative Hep Bs Antibody GRAYZONE Hep B Core Total Ab Nonreactive Hepatitis C Ab (EIA) Nonreactive Ferritin 38 Ceruloplasmin 27 MALU Screen NEGATIVE Anti-Mitochondrial Ab NEGATIVE Anti-Smooth Muscle Ab <20 Tiss Transglutamin IgG <1.0 Tiss Transglutamin IgA <1.0 PEth 16:0/18.1 (POPEth) NEGATIVE PEth 16:0/18.2 (PLPEth) NEGATIVE HIV 1&2 Ab/P24 Ag 4thGn Nonreactive CURRENT LABS 06/19/23 13:36 Ferritin 38 Total Bilirubin 0.4 Direct Bilirubin 0.1 GGT 11 AST 40 H ALT 11 Alkaline Phosphatase 80 Ceruloplasmin 27 MALU Screen NEGATIVE Anti-Mitochondrial Ab NEGATIVE Anti-Smooth Muscle Ab <20 Tiss Transglutamin IgG <1.0 Tiss Transglutamin IgA <1.0 PEth 16:0/18.1 (POPEth) NEGATIVE PEth 16:0/18.2 (PLPEth) NEGATIVE HIV 1&2 Ab/P24 Ag 4thGn Nonreactive Laboratory Tests 06/19/23 13:36 Ferritin 38 Total Bilirubin 0.4 Direct Bilirubin 0.1 GGT 11 AST 40 H ALT 11 Alkaline Phosphatase 80 Ceruloplasmin 27 MALU Screen NEGATIVE Anti-Mitochondrial Ab NEGATIVE Anti-Smooth Muscle Ab <20 Tiss Transglutamin IgG <1.0 Tiss Transglutamin IgA <1.0 PEth 16:0/18.1 (POPEth) NEGATIVE PEth 16:0/18.2 (PLPEth) NEGATIVE HIV 1&2 Ab/P24 Ag 4thGn Nonreactive ULTRASOUND THE ABDOMEN 04/24/23 FINDINGS: PANCREAS: Normal. ABDOMINAL AORTA: The proximal, mid, and distal segments are normal in caliber. INFERIOR VENA CAVA: Visualized portions are normal. LIVER: Normal. The liver is normal in size. The liver contour is normal. Parenchymal echogenicity is normal. No focal hepatic lesion. There is no intrahepatic biliary duct dilatation seen. GALLBLADDER: Normal. The gallbladder is physiologically distended without evidence of stones, sludge, polyps, wall thickening or pericholecystic fluid. COMMON BILE DUCT: Normal in caliber measuring 0.3 cm in diameter. RIGHT KIDNEY: Normal. No hydronephrosis. No renal calculi or focal parenchymal lesions. The kidney measures 9.9 cm in maximum dimension. LEFT KIDNEY: Normal. No hydronephrosis. No renal calculi or focal parenchymal lesions. The kidney measures 9.0 cm in maximum dimension. SPLEEN: Normal. The spleen measures 8.8 cm in maximum dimension. FREE FLUID: None. US/US abdomen complete IMPRESSION: Unremarkable examination Code(s): R74.01 - Elevation of levels of liver transaminase levels Category: Medical (2) Nausea: Code(s): R11.0 - Nausea Category: Medical (3) Diarrhea: Code(s): R19.7 - Diarrhea, unspecified Category: Medical Plan We review the results and it does not seem that she has liver disease or GB disease. She continues to have nausea with kombucha, prosecco wine with fatigue. She will get bloating with tomatoes, chili flakes and wheat flour. She does not eat meat. She seems convinced that is the alcohol that causes her nausea and this may well be true as alcohol is extremely irritating to the GI system but that does not mean that it is originating with the liver dysfunction. Differential diagnosis is extremely wide and could include peptic ulcer disease amongst many other things. Although she does not appear to have gallstones it is also possible she has a biliary dyskinesia although the severity of her symptoms may not support this as they are relatively mild. Will get more tests for AST elevation, but all other liver parameters seem ok. Get ceruloplasm. Discussed EGD she needs to check with insurance for copay cost. She has diarrhea about 1-2 a week getting rast as well as fecal alexus etc. she says she has had celiac testing in the past that was negative. Reviewed unusual reasons for ast elevation, she used to take a lot of Tylenol come back her migraines in her use but isn't doing that now, another reason this can be up can be related to anorexia and his this point she does relate to me she had a history of anorexia/bulimia in her past so this is intriguing, she does see an eye doctor every 2 years but I think getting a ceruloplasmin as Rogerio's disease is also in the differential as well some more unusual liver antibody tests, it does not appear that she has any severe trauma or muscle damage contributing to the AST isolation. Overall I am unimpressed with the possibility of liver disease. We could always do a liver biopsy but this would depend on her insurance and what else we uncover. ROV 6 weeks. Orders: Orders Rast Allergen 01/21/25 R11.0 - Nausea, R19.7 - Diarrhea, unspecified, R74.01 - Elevation of levels of liver transaminase levels Calprotectin, Fecal 01/21/25 R11.0 - Nausea, R19.7 - Diarrhea, unspecified, R74.01 - Elevation of levels of liver transaminase levels Liver Cytosol (LC-1) Auto Ab 01/21/25 R11.0 - Nausea, R19.7 - Diarrhea, unspecified, R74.01 - Elevation of levels of liver transaminase levels Liver Kidney Microsomal Ab 01/21/25 R11.0 - Nausea, R19.7 - Diarrhea, unspecified, R74.01 - Elevation of levels of liver transaminase levels Ceruloplasmin 01/21/25 R11.0 - Nausea, R19.7 - Diarrhea, unspecified, R74.01 - Elevation of levels of liver transaminase levels Soluble Liver Ag Autoantibody 01/21/25 R11.0 - Nausea, R19.7 - Diarrhea, unspecified, R74.01 - Elevation of levels of liver transaminase levels H Pylori Breath Test 01/21/25 R11.0 - Nausea, R19.7 - Diarrhea, unspecified, R74.01 - Elevation of levels of liver transaminase levels C Reactive Protein 01/21/25 R19.7 - Diarrhea, unspecified Coding Level of Care Code Est Pt Level 3 (99933) Diagnoses Elevated liver transaminase level R74.01 Nausea R11.0 Diarrhea R19.7
[2025-01-21 15:23] VITALS: BP 140/90; PULSE 66; O2SAT 100; BMI 25.2
--- OUTSIDE RECORDS SUMMARY | 2025-01-21 17:33 | XMS_ITS | Encounter Summary ---
Author Organization [employer] Address [address] [place] [address] [address] [place] [address] Care Team Providers Care Web Ui Designer Name Role Phone Enedelia Joe MD Primary Care Pro vider Encounter Details Date Type Department Care Team (Late st Contact Info) Description 12/11/2024 Orders Only [facility] [address] [place] [address] [phone] Kirsten Blanchard MD [address] [place], [place] [phone] Social History Tobacco Use Types Packs/Day Years [...] Care Team (Late st Contact Info) Description 02/17/2025 1:00 PM EDT Nutrition [facility] DIABETES/NUTRITION [address] [place] [address] Torie Fabian, DANA [address] [place] [address] documented as of this encounter Visit Diagnoses Not on filedocumented in this encounter Additional Health Concerns Assessment Noted Time PHQ-9 Depression Total Score: 3 02/07/20 24 10:26 AM EDT documented as of this encounter Care Teams Web Ui Designer Relationship Specialty Start Date End Date Enedelia Joe MD [address] [place], [place] [phone] PCP - General Internal Medicine 03/28/23 documented as of this encounter
== END 2025-01-21 16:08 | disposition home or self-care (01) ==
LOC: HO.HGI 15:12
PROVIDERS: PCP Registered Nurse; Visit Provider Nurse Practitioner
DX: R74.01 Elevation of levels of liver transaminase levels (principal); R11.0 Nausea; R19.7 Diarrhea, unspecified
CPT/HCPCS: 99213

== ENCOUNTER 2025-06-27 13:37 | Outpatient (REF) | payer OTHER, SELFPAY ==
[2025-06-27 15:08] LABS: Bacterial Vaginosis PCR NEGATIVE (Negative); Candida Group PCR DETECTED (Not Detect); Candida glab krusei PCR NOT DETECTED (Not Detect); Trichomonas vaginalis PCR NOT DETECTED (Not Detect)
[2025-06-27 15:38] LABS: CT PCR NOT DETECTED (Not Detect.); NG PCR NOT DETECTED (Not Detect.)
== END 2025-06-27 13:38 | disposition home or self-care (01) ==
LOC: HO.LNP 13:37
PROVIDERS: Visit Provider Pediatrics
DX: Z20.2 Contact with and (suspected) exposure to infections with a predominantly sexual mode of transmission (principal); B37.9 Candidiasis, unspecified
CPT/HCPCS: 81515; 87491; 87591

== ENCOUNTER 2025-07-20 17:08 | Outpatient (REF) | payer OTHER, SELFPAY ==
--- OUTSIDE RECORDS SUMMARY | 2025-07-20 13:20 | XMS_ITS | Encounter Summary ---
Author Organization [employer] Address [address] [place] [address] 7t [place] [address] Care Team Providers Care Roll Skinner Name Role Phone Enedelia Joe MD Primary Care Pro vider Encounter Details Date Type Department Care Team (Late st Contact Info) Description 07/20/2025 1:20 PM EST Office Visit [facility] [address] [place], [place] [phone] Christine Pearl, ANP [address] [place] [address] Vaginal discharge (Primary Dx); Dysmenorrhea Social History Tobacco Use Types Packs/Day Years [...] Answer Date Recorded Patient Health Questionnaire-9 Score 0 12/25/2024 Patient Health Questionnaire-9 Score 0 12/25/2024 Last PHQ-9: Questionnaire Data Not on file 0 12/25/2024 Housing Stability Answer Date Recorded What is [...] Date Recorded Patient Health Questionnaire-2 Score 0 12/25/2024 Internet Access Answer Date Recorded Internet Access [...] Sign Reading Time Taken Comments Blood Pressure 130/86 07/20/2025 1:03 PM EST Pulse 60 07/20/2025 1:03 PM EST Temperature 36.5 C (97.7 F) 07/20/2025 1:03 PM EST Respiratory Rate 10 07/20/2025 1:03 PM EST Oxygen Saturation 95% 07/20/2025 1:03 PM EST Inhaled Oxygen Concentration - - Weight 65.8 kg (145 lb) 07/20/2025 1:03 PM EST Height 162.6 cm (5' 4 ) 07/20/2025 1:03 PM EST Body Mass Index 24.89 07/20/2025 1:03 PM EST documented in this encounter Progress Notes * BRENNEN Guadarrama - 07/20/2025 1:20 PM EST Jordyn Lara is 30 y.o. patient here today for sick visit. HPI Seen here 06/27/25 for vaginal discharge and irritation. + for BV at that time. See viits note that DOS for additional info. Rx'd metronidazole PO and topical antifungal for partner d/t recurrent vaginal symptoms. TODAY: Jordyn Lara, 30 years Vaginal Discharge and Recurrent Yeast Infections - Recurrence of vaginal itching and irritation began 4 days ago - History of chronic yeast infections and bacterial vaginosis (BV), alternating between both conditions - Last episode was yeast infection approximately 1 month ago - Previous episodes included both yeast and BV - Initial onset of recurrent infections began about a year and a half ago - No odor associated with current discharge - Reports chalky, stiffer discharge during episodes - Multiple prior tests performed for yeast and BV - Past use of [id number]-lrqmeeu yeast infection treatment about a year and a half ago, which worsened symptoms - Reports increased recurrence during periods of poor gut health and dietary changes - Vegetarian diet, history of eating disorders, sometimes delays eating until very hungry - Currently taking probiotics and drinking kefir to improve gut health - Uses Flex Cup (silicone) and tampons for menstruation, reports worse cramps with tampons - Monogamous relationship, does not use protection, partner has not experienced similar symptoms with other partners - Uses coconut oil occasionally for lubrication, believes it helps pH balance Menstrual Pain - Severe menstrual cramps, sometimes debilitating - Required to call out of work due to vomiting from pain on Sunday prior to visit - Some months worse than others, pain intensity varies - Past prescription of 800 mg ibuprofen by CNM, helps if taken in time - History of ultrasound (external and internal) at [facility], results reported as normal - Has requested testing for endometriosis, is aware this could incl surgical eval Smokes MJ mixed w tobacco occasionally Review of Systems Constitutional: Negative for chills and fever. HENT: Negative for sore throat. Respiratory: Negative for cough and shortness of breath. Cardiovascular: Negative for chest pain. Gastrointestinal: Negative for constipation and diarrhea. Endocrine: Negative for polydipsia, polyphagia and polyuria. Genitourinary: Positive for menstrual problem and vaginal discharge. Negative for dysuria, enuresis, genital sores and vaginal pain. Problem List[1] Objective BP 130/86 (BP Location: Right arm, Patient Position: Sitting, BP Cuff Size: Adult) Pulse 60 Temp 97.7 ??F (36.5 ??C) (Temporal) Resp 10 Ht 5' 4 (1.626 m) Wt 145 lb (65.8 kg) LMP 06/15/2025 (Approximate) SpO2 95% BMI 24.89 kg/m?? Physical Exam Vitals reviewed. Constitutional: General: She is not in acute distress. Appearance: Normal appearance. She is not ill-appearing. HENT: Head: Normocephalic and atraumatic. Eyes: General: No scleral icterus. Extraocular Movements: Extraocular movements intact. Pupils: Pupils are equal, round, and reactive to light. Cardiovascular: Rate and Rhythm: Normal rate. Pulmonary: Effort: Pulmonary effort is normal. No accessory muscle usage or respiratory distress. Neurological: Mental Status: She is alert and oriented to person, place, and time. Cranial Nerves: No cranial nerve deficit. Psychiatric: Mood and Affect: Mood normal. Behavior: Behavior normal. Diagnoses and all orders for this visit: Vaginal discharge Vaginal discharge: - Recurrent vulvovaginal symptoms with alternating episodes of candidiasis and bacterial vaginosis.Current episode suspected to be candidiasis. - Ordered laboratory testing for yeast and bacterial vaginosis. Will review results prior to initiating treatment. Recommended minimizing use of coconut oil and switching to hypoallergenic lubricantsif needed. Advised boiling intimate devices after use. Suggested use of condoms or barrier methods to reduce exposure to semen, which may disrupt vaginal pH. Treatment pending test results Severe dysmenorrhea: - Severe menstrual cramps with associated nausea and vomiting, previously evaluated with pelvic ultrasound and blood work, which were unremarkable. - Recommended scheduled ibuprofen administration with onset of menses, taken with food to minimize gastrointestinal side effects. Advised setting reminders to ensure timely dosing. No further imagingor referral planned at this time. Will follow-up w/ PCP as scheduled. - Bacterial Vaginosis Panel - Chlamydia/N. Gonorrhoeae RNA, TMA, Vaginal [1] Patient Active Problem List Diagnosis Intractable menstrual migraine Raynaud's disease without gangrene Health care maintenance Depression, unspecified Anxiety disorder, unspecified Dental plaque Vaginal discharge Marijuana use History of anorexia nervosa MEDRANO (nonalcoholic steatohepatitis) Recurrent candidiasis of vagina documented in this encounter Plan of Treatment Upcoming Encounters Date Type Department Care Team (Late st Contact Info) Description 08/20/2025 8:45 AM EST Office Visit [facility] [address] [place] [address] Amina Osborne 08/28/2025 10:45 AM EST Office Visit [facility] [address] [place] [address] Enedelia Joe MD [address] [place] [address] documented as of this encounter Procedures Procedure Name Priority Date/Time Associated Diagnosis Comments BACTERIAL VAGINOSIS PANEL Routine 07/20/2025 1:16 PM EST Vaginal discharge CHLAMYDIA/N. GONORRHOEAE RNA, TMA, UROGENITAL Routine 07/20/2025 1:16 PM EST Vaginal discharge documented in this encounter Results * Chlamydia/N. Gonorrhoeae RNA, TMA, Vaginal (07/20/2025 1:16 PM EST) CT PCR NOT DETECTED Not Detect. [facility] Comment:A not detected test result [...] psychologicalconsequences. NG PCR NOT DETECTED Not Detect. [facility] Comment:A not detected test result [...] to adverse medical, social or psychologicalconsequences. Swab Vaginal structure / Unknown 07/20/2025 1:16 PM EST 07/20/2025 5:08 PM EST Christine Pearl [facility] MICROBIOLOGY - GENERAL ORDER ROBERTO Final Result Performing Organization Address City/[facility] Co de Phone Number [facility] [address] [place] [address] [phone] * (ABNORMAL) Bacterial Vaginosis Panel (07/20/2025 1:16 PM EST) TRICHOMONAS VAGINALIS DETECTION BY PCR NOT DETECTED Not Detect [facility] BACTERIAL VAGINOSIS DETECTION BY PCR POSITIVE(A) Negative [facility] Comment:The BV organism targ ets [...] GROUP DETECTION BY PCR DETECTED(A) Not Detect [facility] Alee glab krusei PCR NOT DETECTED Not Detect [facility] Swab Vaginal structure / Unknown 07/20/2025 1:16 PM EST 07/20/2025 5:08 PM EST us Christine Pearl [facility] MICROBIOLOGY - GENERAL ORDER ROBERTO Final Result Performing Organization Address City/[facility] Co de Phone Number [facility] [address] [place] [address] [phone] documented in this encounter Visit Diagnoses Diagnosis Vaginal discharge- Primary Leukorrhea, not specified as infective Dysmenorrhea documented in this encounter Additional Health Concerns Assessment Noted Time PHQ-9 Depression Total Score: 0 12/26/19 25 1:46 PM EDT documented as of this encounter Care Teams Roll Skinner Relationship Specialty Start Date End Date Enedelia Joe MD [address] [place] [phone] PCP - General Internal Medicine 03/28/23 documented as of this encounter
[2025-07-20 23:16] LABS: Bacterial Vaginosis PCR POSITIVE (Negative); Candida Group PCR DETECTED (Not Detect); Candida glab krusei PCR NOT DETECTED (Not Detect); Trichomonas vaginalis PCR NOT DETECTED (Not Detect)
[2025-07-20 23:47] LABS: CT PCR NOT DETECTED (Not Detect.); NG PCR NOT DETECTED (Not Detect.)
--- OUTSIDE RECORDS SUMMARY | 2025-07-21 02:22 | XMS_ITS | Encounter Summary ---
Author Organization [employer] Address [address] [place] [address] 7t [place] [address] Care Team Providers Care Chief Informatics Officer Name Role Phone Enedelia Joe MD Primary Care Pro vider Reason for Visit * Reason Onset Date Comments cancellation list/speak to management 07/07/2025 Encounter Details Date Type Department Care Team ([facility] Contact Info) Description 07/07/2025 Telephone [facility] [address] [place] [address] Amina Osborne cancellation list/speak to management Social History Tobacco Use Types Packs/Day Years [...] encounter Miscellaneous Notes * Telephone Encounter - Shonda Interiano - 07/07/2025 10:52 AM EST Patient called in seeking an appointment for cleaning and exam. No show appointment in September anddesiree told she will get a call back to reschedule. Patient states she has called back a few times andhas been told she will get a call back. She would like to speak to management on the to discuss thewait on appt. Encouraged patient to also call off and on to see if any cancellations seeing that cancellation list already has other patients on it as well. documented in this encounter Plan of Treatment Upcoming Encounters Date Type Department Care Team (Late st Contact Info) Description 08/20/2025 8:45 AM EST Office Visit [facility] [address] [place], [place] [phone] Amina Osborne 08/28/2025 10:45 AM EST Office Visit [facility] [address] [place] [address] Enedelia Joe MD [address] [place], [place] [phone] documented as of this encounter Visit Diagnoses Not on filedocumented in this encounter Additional Health Concerns Assessment Noted Time PHQ-9 Depression Total Score: 0 12/26/19 25 1:46 PM EDT documented as of this encounter Care Teams Chief Informatics Officer Relationship Specialty Start Date End Date Enedelia Joe MD [address] [place] [phone] PCP - General Internal Medicine 03/28/23 documented as of this encounter
--- OUTSIDE RECORDS SUMMARY | 2025-07-21 02:22 | XMS_ITS | Encounter Summary ---
Author Organization [employer] Address [address] [place] [address] 7 [place] [address] Care Team Providers Care Patternmaker Apprentice Metal Name Role Phone Enedelia Joe MD Primary Care Pro vider Reason for Visit * Reason Onset Date Comments Nurse Triage 11/27/2024 Encounter Details Date Type Department Care Team ([facility] st Contact Info) Description 11/27/2024 Telephone [facility] [address] [place], [place] [phone] Enedelia Joe MD [address] [place] [address] Nurse Triage Social History Tobacco Use Types [...] No answer, left voicemail to call back [facility]. Sent message on [employer]. Pt to call back PRN. * Telephone Encounter - Shakira Hidalgo RN - 11/27/2024 4:18 PM EDT Telephone call to pt to advise on fluconazole Rx instructions. No answer, left voicemail to call back [facility]. Will task to call again. * [...] up here, it is being run in [facility]'s system. Informed that there are no other [...] Genital Hygiene * Telephone Encounter - Leydi Jarrett Prather - 11/27/2024 12:02 PM EDT Symptom: Urine Symptoms Outcome: Schedule a same-day appointment or talk to a nurse or provider today Reason: Caller denied all higher acuity questions The caller accepted this outcome. [phone] documented in this encounter Plan of Treatment Upcoming Encounters Date Type Department Care Team (Late st Contact Info) Description 08/20/2025 8:45 AM EST Office Visit [facility] [address] [place] [address] Amina Osborne 08/28/2025 10:45 AM EST Office Visit [facility] MED[facility] [address] [place] [address] Enedelia Joe MD [address] [place], [place] [phone] documented as of this encounter Visit Diagnoses Diagnosis Vaginal discharge Leukorrhea, not specified as infective documented in this encounter Additional Health Concerns Assessment Noted Time PHQ-9 Depression Total Score: 3 02/07/20 24 10:26 AM EDT documented as of this encounter Care Teams Patternmaker Apprentice Metal Relationship Specialty Start Date End Date Enedelia Joe MD [address] [place] [address] PCP - General Internal Medicine 03/28/23 documented as of this encounter
--- OUTSIDE RECORDS SUMMARY | 2025-07-21 02:22 | XMS_ITS | Encounter Summary ---
Author Organization [employer] Address [address] [place] [address] 7t [place] [address] Care Team Providers Care Gang Ripsaw Operator Name Role Phone Jaz Sams Primary Care Provider Enedelia Denson MD Primary Care Pro vider Reason for Visit * Reason Comments Med Change Request Encounter Details Date Type Department Care Team (Late Contact Info) Description 11/26/2022 Refill [facility] [address] [place] [address] Jaz Sams FNP Chronic left-sided thoracic back pain Social History [...] Department Care Team (Late Contact Info) Description 08/20/2025 8:45 AM EST Office Visit [facility]ULT [facility] [address] [place] [address] Amina Osborne 08/28/2025 10:45 AM EST Office Visit [facility] [address] [place] [address] Enedelia Joe MD [address] [place], [place] [phone] documented as of this encounter Visit Diagnoses Diagnosis Chronic left-sided thoracic back pain documented in this encounter Additional Health Concerns Assessment Noted Time PHQ-9 Depression Total Score: 0 10/24/19 3:39 PM EDT documented as of this encounter Care Teams Gang Ripsaw Operator Relationship Specialty Start Date End Date Jaz Sams FNP PCP - General Family Medicine 04/10/22 03/27/23 Enedelia Joe MD [address] [place] [phone] PCP - General Internal Medicine 03/28/23 documented as of this encounter
--- OUTSIDE RECORDS SUMMARY | 2025-07-21 02:22 | XMS_ITS | Encounter Summary ---
Author Organization [facility] Prior to 06/13/2024 Address [address] [place] [address] Care Team Providers Care Sap Director Name Role Phone Yulissa Conway MD Primary Care Provider Yulissa Martin MD Primary Care Provider Enedelia Bustillos Primary Care Provider [phone] Pending Sale To [facility], Pcp Primary Care Provider Mulugeta pulido Encounter Details Date Type Department Care Team Description 1997 [facility] Medical Records [address] [place] [phone] Social History Tobacco Use Types Packs/Day Years [...] on filedocumented in this encounter Care Teams Sap Director Relationship Specialty Start Date End Date Yulissa Conway MD PCP - General 02/20/00 02/10/18 Yulissa Conway MD PCP - General 02/10/00 02/19/00 Enedelia Jackson [address] [place] [address] PCP - General 1997 02/09/00 Pending Sale To [facility], Pcp [address] [place] [address] PCP - General Internal Medicine 02/11/18 documented as of this encounter
--- OUTSIDE RECORDS SUMMARY | 2025-07-21 02:22 | XMS_ITS | Encounter Summary ---
Author Organization [employer] Address [address] [facility] 7t [place] [address] Care Team Providers Care Cleaning Porter Name Role Phone Enedelia Joe MD Primary Care Pro vider Encounter Details Date Type Department Care Team ([facility] st Contact Info) Description 12/11/2024 Orders Only [facility] [address] [place], [place] [phone] Kirsten Blanchard MD [address] [place] [address] Social History Tobacco Use Types Packs/Day Years [...] Description 08/20/2025 8:45 AM EST Office Visit [facility]ULT [facility] [address] [place] [address] Amina Osborne 08/28/2025 10:45 AM EST Office Visit [facility] [address] [place], [place] [phone] Enedelia Joe MD [address] [place] [phone] documented as of this encounter Visit Diagnoses Not on filedocumented in this encounter Additional Health Concerns Assessment Noted Time PHQ-9 Depression Total Score: 3 02/07/20 24 10:26 AM EDT documented as of this encounter Care Teams Cleaning Porter Relationship Specialty Start Date End Date Enedelia Joe MD [address] [place] [phone] PCP - General Internal Medicine 03/28/23 documented as of this encounter
--- OUTSIDE RECORDS SUMMARY | 2025-07-21 02:22 | XMS_ITS | Encounter Summary ---
Author Organization [facility] Address [facility] [employer] [facility] [address] [place] [phone] Phone Care Team Providers Care Coding Machine Operator Name Role Phone Natalia Perez PA-C Primary Care Provider [email or web address] Oliveros [email or web address] maintenance tech Provider [phone] Encounter Details Date Type Department Care Team (Latest Contact Info) Description 07/24/2018 Transcribe Orders [facility] [address] [place] [address] Ken Ni MD [address] [facility] [address] [place] [address] [email or web address] Diarrhea, unspecified type (Primary Dx); Vomiting without nausea, intractability of vomiting not specified, unspecified vomiting type Social History Tobacco Use Types Packs/Day Years Used Date Smoking Tobacco: Never Alcohol Use Standard Drinks/Week Comments Yes 0 (1 standard drink = 0.6 oz pur e alcohol) Comments Unknown Sex and Gender Information Value Date Recorded Sex Assigned at Female 08/13/2018 9:20 PM EST Legal Sex Female 2:22 PM EDT Gender Identity Female 08/13/2018 9:20 PM EST Sexual Orientation Not on file documented as of this encounter Plan of Treatment Not on file documented as of this encounter Results * (ABNORMAL) C-Reactive Protein (07/24/2018 11:41 AM EST) C REACTIVE PROTEIN 4.4(H) 0.0 - 4.0 mg/L [facility] Blood 07/24/2018 11:4 1 AM EST 07/24/2018 11:45 AM EST us Ken Ni MD LAB BLOOD BKR ORDERABLES Fin al Result [address] [address] * (ABNORMAL) Comprehensive metabolic panel (07/24/2018 11:41 AM EST) SODIUM 138 133 - 146 mmol/L [facility] POTASSIUM 3.9 3.3 - 5.1 mmol/L [facility] CHLORIDE 103 96 - 108 mmol/L [facility] CO2 24 21 - 35 mmol/L [facility] BUN 8 6 - 19 mg/dL [facility] CREATININE 0.70 0.5 - 1.5 mg/dL [facility] GLUCOSE 83 70 - 99 mg/dL [facility] ALBUMIN 4.1 3.9 - 4.8 g/dL [facility] TOTAL PROTEIN 7.1 6.5 - 8.0 g/dL [facility] CALCIUM 9.2 8.4 - 10.3 mg/dL [facility] ALKALINE PHOSPHATASE 86 39 - 117 U/L [facility] TOTAL BILIRUBIN 0.5 0.0 - 1.2 mg/dL [facility] AST 42(H) 0 - 37 U/L [facility] ALT 12 0 - 40 U/L [facility] GLOBULIN 3.0 1 - 4.8 g/dL [facility] EGFR >120 >59 mL/min/1.7 3m2 [facility] Comment:If patient is black, multiply result by 1.159. Estimated glomerular filtration rate calculated using the CKD-EPI equation. ANION GAP 15 10 - 20 mmol/L [facility] Blood 07/24/2018 11:4 1 AM EST 07/24/2018 11:45 AM EST us Ken Ni MD LAB BLOOD BKR ORDERABLES Fin al Result [address] [address] * CBC (07/24/2018 11:41 AM EST) WBC 8.95 3.40 - 11.20 K/uL [facility] RBC 4.30 3.80 - 4.80 M/uL [facility] HGB 12.4 12.0 - 15.0 g/dL [facility] HCT 37.9 36.0 - 46.0 % [facility] PLT 344 130 - 400 K/uL [facility] MCV 88.1 79.0 - 98.0 fL [facility] MCH 28.8 27.0 - 34.8 pg [facility] MCHC 32.7 31.5 - 36.0 g/dL [facility] RDW 12.4 10.8 - 14.6 % [facility] MPV 9.9 9.4 - 12.4 [facility] NRBC 0.00 0.00 /100 WBCs [facility] ABSOLUTE NRBC 0.00 0.00 K/uL [facility] Blood 07/24/2018 11:4 1 AM EST 07/24/2018 11:45 AM EST us Ken Ni MD LAB BLOOD BKR ORDERABLES Fin al Result Performing Organization Address City/State/[facility] Co de Phone Number [address] [address] * Immunoglobulin A (07/24/2018 11:41 AM EST) IgA 282 70 - 400 mg/dL [facility] Blood 07/24/2018 11:4 1 AM EST 07/24/2018 11:45 AM EST us Ken Ni MD LAB BLOOD BKR ORDERABLES Fin al Result Performing Organization Address City/[facility] Co de Phone Number [address] [address] * Gliadin deamidated antibody, IgG/IgA (07/24/2018 11:41 AM EST) Gliadin Ab, IGA <10.0 <20.0 (Negative) U [facility] DPT OF LAB MED AND PAT+ GLIADIN AB IGG <10.0 <20.0 (Negative) U [facility] DPT OF LAB MED AND PAT+ Blood 07/24/2018 11:4 1 AM EST 07/24/2018 11:45 AM EST us Ken Ni MD LAB BLOOD ORDERABLES Final R esult [facility] DPT OF LAB MED AND PAT+ [address] [place] [address] * Tissue transglutaminase IgA (07/24/2018 11:41 AM EST) TTG IGA ANTIBODY <1.2 <4.0 (Negative) U/mL [facility] DPT OF LAB MED AND PAT+ Blood 07/24/2018 11:4 1 AM EST 07/24/2018 11:45 AM EST us Ken Ni MD LAB BLOOD BKR ORDERABLES Fin al Result Performing Organization Address [facility] Co de Phone Number [facility] DPT OF LAB MED AND PAT+ [address] [place] [address] documented in this encounter Visit Diagnoses Diagnosis Diarrhea, unspecified type- Primary Vomiting without nausea, intractability of vomiting not specified, unspecified vomiting type documented in this encounter Care Teams Coding Machine Operator Relationship Specialty Start Date End Date Natalia Perez PA-C [email or web address] PCP - General 07/24/18 Shirley Oliveros RN [address] [place] [phone] [email or web address] PCP - General Internal Medicine 01/28/20 documented as of this encounter Additional Source Comments The information contained in this document represents components of the legal health record. It is not the complete legal health record.[facility]
--- OUTSIDE RECORDS SUMMARY | 2025-07-21 02:22 | XMS_ITS | Encounter Summary ---
Author Organization [employer] Address [address] [place] [address] 7t [place] [address] Care Team Providers Care Project Account Manager Name Role Phone Jaz Sams Primary Care Provider Enedelia Denson MD Primary Care Pro vider Encounter Details Date Type Department Care Team (Late Contact Info) Description 12/01/2022 Orders Only [address] [phone] Jaz Sams FNP Social History Tobacco Use Types Packs/Day Years [...] Description 08/20/2025 8:45 AM EST Office Visit [facility] ADULT DENTAL [address] [place] [address] Amina Osborne 08/28/2025 10:45 AM EST Office Visit [facility] MEDICINE [address] [place] [address] Enedelia Joe MD [address] [place], [place] [phone] documented as of this encounter Visit Diagnoses Not on filedocumented in this encounter Additional Health Concerns Assessment Noted Time PHQ-9 Depression Total Score: 0 10/24/19 3:39 PM EDT documented as of this encounter Care Teams Project Account Manager Relationship Specialty Start Date End Date Jaz Sams FNP PCP - General Family Medicine 04/10/22 03/27/23 Enedelia Joe MD [address] [place], [place] [phone] PCP - General Internal Medicine 03/28/23 documented as of this encounter
--- OUTSIDE RECORDS SUMMARY | 2025-07-21 02:22 | XMS_ITS | Encounter Summary ---
Author Organization [facility] Address [address] [place] [address] 7 [place] [address] Care Team Providers Care Packing Checker Name Role Phone Jaz Sams Primary Care Provider Enedelia Denson MD Primary Care Pro vider Encounter Details Date Type Department Care Team (Latest Contact Info) Description 07/22/2021 Abstract [facility] CONVERSIONS Dental, Provider, DDS Social History Tobacco [...] Description 08/20/2025 8:45 AM EST Office Visit [facility] CHC ADULT DENTAL [address] [place] [address] Amina Osborne 08/28/2025 10:45 AM EST Office Visit [facility] MEDICINE [address] [place], [place] [phone] Enedelia Joe MD [address] [place], [place] [phone] documented as of this encounter Visit Diagnoses Not on filedocumented in this encounter Care Teams Packing Checker Relationship Specialty Start Date End Date Jaz Sams FNP PCP - General Family Medicine 04/10/22 03/27/23 Enedelia Joe MD [address] [place] [phone] PCP - General Internal Medicine 03/28/23 documented as of this encounter
--- OUTSIDE RECORDS SUMMARY | 2025-07-21 02:22 | XMS_ITS | Encounter Summary ---
Author Organization [employer] Address [address] [place] [address] 7t [place] [address] Care Team Providers Care Wafer Fab Operator Name Role Phone Enedelia Joe MD Primary Care Pro vider Encounter Details Date Type Department Care Team ([facility] Contact Info) Description 06/29/2025 Results Follow-Up [facility] CHC MED & PEDS [address] [place] [address] Fiordaliza Holt MD [address] [place] [address] Chlamydia/N. Gonorrhoeae RNA, TMA, Vaginal, Bacterial Vaginosis Panel Social History Tobacco Use Types Packs/Day Years [...] Description 08/20/2025 8:45 AM EST Office Visit [facility] ADULT DENTAL [address] [place] [address] Amina Osborne 08/28/2025 10:45 AM EST Office Visit [facility] MEDICINE [address] [place] [address] Enedelia Joe MD [address] [place] [phone] documented as of this encounter Visit Diagnoses Not on filedocumented in this encounter Additional Health Concerns Assessment Noted Time PHQ-9 Depression Total Score: 0 12/26/19 25 1:46 PM EDT documented as of this encounter Care Teams Wafer Fab Operator Relationship Specialty Start Date End Date Enedelia Joe MD [address] [place] [phone] PCP - General Internal Medicine 03/28/23 documented as of this encounter
--- OUTSIDE RECORDS SUMMARY | 2025-07-21 02:22 | XMS_ITS | Encounter Summary ---
Author Organization [employer] Address [address] [place] [address] 7 [place] [address] Care Team Providers Care Circuits Engineer Name Role Phone Enedelia Joe MD Primary Care Pro vider Reason for Visit * Reason Onset Date Comments Med Refill 12/19/2024 Encounter Details Date Type Department Care Team ([facility] st Contact Info) Description 12/19/2024 Refill [facility] MEDICINE [address] [place] [address] Enedelia Joe MD [address] [place] [address] Social History Tobacco Use Types Packs/Day Years [...] 8:45 AM EST Office Visit [facility] CHC ADULT DENTAL [address] [place] [address] Amina Osborne 08/28/2025 10:45 AM EST Office Visit [facility] MEDICINE [address] [place] [address] Enedelia Joe MD [address] [place] [phone] documented as of this encounter Visit Diagnoses Not on filedocumented in this encounter Additional Health Concerns Assessment Noted Time PHQ-9 Depression Total Score: 3 02/07/20 24 10:26 AM EDT documented as of this encounter Care Teams Circuits Engineer Relationship Specialty Start Date End Date Enedelia Joe MD [address] [place] [phone] PCP - General Internal Medicine 03/28/23 documented as of this encounter
--- OUTSIDE RECORDS SUMMARY | 2025-07-21 02:22 | XMS_ITS | Encounter Summary ---
Author Organization [employer] Address [address] [place] [address] 7 [place] [address] Care Team Providers Care Cream Cheese Maker Name Role Phone Enedelia Joe MD Primary Care Pro vider Reason for Visit * Reason Onset Date Comments Med Refill 12/19/2024 Encounter Details Date Type Department Care Team ([facility] st Contact Info) Description 12/19/2024 Refill [facility] MEDICINE [address] [place] [address] Enedelia Joe MD [address] [place] [address] Social History Tobacco Use Types Packs/Day Years [...] Description 08/20/2025 8:45 AM EST Office Visit [facility] CHC ADULT DENTAL [address] [place] [address] Amina Osborne 08/28/2025 10:45 AM EST Office Visit [facility] MEDICINE [address] [place] [address] Enedelia Joe MD [address] [place] [phone] documented as of this encounter Visit Diagnoses Not on filedocumented in this encounter Additional Health Concerns Assessment Noted Time PHQ-9 Depression Total Score: 3 02/07/20 24 10:26 AM EDT documented as of this encounter Care Teams Cream Cheese Maker Relationship Specialty Start Date End Date Enedelia Joe MD [address] [place] [phone] PCP - General Internal Medicine 03/28/23 documented as of this encounter
--- OUTSIDE RECORDS SUMMARY | 2025-07-21 02:22 | XMS_ITS | Encounter Summary ---
Author Organization [facility] Address [address] [place] [phone] Phone Care Team Providers Care Community Assistant Name Role Phone Natalia Perez PA-C Primary Care Provider [email or web address] Shirley Oliveros RNdesizing machine offbearer Provider [phone] Encounter Details Date Type Department Care Team (Latest Contact Info) Description 09/04/2018 Transcribe Orders [facility] [address] [address] Thalia Dawn PA [address] [place] [address] Vomiting, intractability of vomiting not specified, presence of nausea not specified, unspecified vomiting type (Primary Dx); Diarrhea, unspecified type Social History Tobacco Use Types Packs/Day [...] as of this encounter Plan of Treatment Pending Results Name Type Priority Associated Diagnoses Date /Time Stool culture Microbiology Routine Vomiting, intractability of vomiting not specified, presence of nausea not specified, unspecified vomiting type Diarrhea, unspecified type 09/13/2018 8:00 AM EST documented as of this encounter Results * Cryptosporidium screen, stool (09/13/2018 8:00 AM EST) Specimen Source/ Description STOOL STOOL STOOL [facility] Special Requests None LAYOUT OPERATOR [facility] CRYPTOSPORIDIA No Cryptosporidi um, Cyclospora or Isospora observed [facility] Report Status 09/20/2018 FINAL [facility] Stool (Stool) 09/13/2018 8:0 0 AM EST 09/13/2018 2:24 PM EST us Thalia JOLLY MICROBIOLOGY - GENERAL ORDE [facility] Final Result Performing Organization Address City/[facility]/ZIP Co de Phone Number [address] [address] * Ova and parasites, stool (09/13/2018 8:00 AM EST) Specimen Source/ Description STOOL STOOL [facility] Special Requests None [facility] DIRECT EXAM NO PARASITES FOUND BY DIRECT OR CONCENTRATION METHODS [facility] DIRECT EXAM No parasites found by Trichrome Stain [facility] Report Status 09/23/2018 FINAL [facility] Stool (Stool) 09/13/2018 8:0 0 AM EST 09/13/2018 2:24 PM EST us Thalia JOLLY LAB BODY FLUIDS AND STOOL O RDERABLES Final Result Performing Organization Address [facility] Co de Phone Number [address] [address] * Giardia antigen screen (09/13/2018 8:00 AM EST) ST GIARDIA ANTIGEN Negative Negative [facility] DPT OF LAB MED AND PAT+ Stool (Stool) 09/13/2018 8:0 0 AM EST 09/13/2018 2:25 PM EST us Thalia JOLLY LAB BODY FLUIDS AND STOOL O RDERABLES Final Result [facility] DPT OF LAB MED AND PAT+ [address] [place] [address] * Calprotectin, stool (09/13/2018 8:00 AM EST) Calprotectin, stool <27.1 <50.0 mcg/g [facility] Calprotectin Interp Negative Negative [facility] Stool (Stool) 09/13/2018 8:0 0 AM EST 09/13/2018 2:24 PM EST us Thalia JOLLY LAB BODY FLUIDS AND STOOL O RDERABLES Final Result [facility] [address] [place] [address] * Ova and parasites, stool (09/08/2018 8:00 AM EST) Specimen Source/ Description STOOL STOOL STOOL [facility] Special Requests None [facility] DIRECT EXAM NO PARASITES FOUND BY DIRECT OR CONCENTRATION METHODS [facility] DIRECT EXAM No parasites found by Trichrome Stain [facility] Report Status 09/23/2018 FINAL [facility] Stool (Stool) 09/08/2018 8:0 0 AM EST 09/13/2018 2:23 PM EST us Thalia JOLLY LAB BODY FLUIDS AND STOOL O RDERABLES Final Result Performing Organization Address [facility] Co de Phone Number [facility] [address] [place] [address] * Ova and parasites, stool (09/05/2018 8:00 AM EST) Specimen Source/ Description STOOL STOOL STOOL [facility] Special Requests None [facility] DIRECT EXAM NO PARASITES FOUND BY DIRECT OR CONCENTRATION METHODS [facility] DIRECT EXAM No parasites found by Trichrome Stain [facility] Report Status 09/23/2018 FINAL [facility] Stool (Stool) 09/05/2018 8:0 0 AM EST 09/13/2018 2:22 PM EST us Thalia JOLLY LAB BODY FLUIDS AND STOOL O RDERABLES Final Result [address] [address] * (ABNORMAL) CBC (09/04/2018 1:52 PM EST) WBC 8.01 3.40 - 11.20 K/uL [facility] RBC 4.15 3.80 - 4.80 M/uL [facility] HGB 11.9(L) 12.0 - 15.0 g/dL [facility] HCT 35.6(L) 36.0 - 46.0 % [facility] PLT 384 130 - 400 K/uL [facility] MCV 85.8 79.0 - 98.0 fL [facility] MCH 28.7 27.0 - 34.8 pg [facility] MCHC 33.4 31.5 - 36.0 g/dL [facility] RDW 12.3 10.8 - 14.6 % [facility] MPV 9.9 9.4 - 12.4 fl [facility] NRBC 0.00 0.00 /100 WBCs [facility] ABSOLUTE NRBC 0.00 0.00 K/uL [facility] Blood 09/04/2018 1:52 PM EST 09/04/2018 1:58 PM EST us Thalia JOLLY LAB BLOOD BKR ORDERABLES Fi nal Result Performing Organization Address [facility]/State/[facility] Co de Phone Number [address] [address] documented in this encounter Visit Diagnoses Diagnosis Vomiting, intractability of vomiting not specified, presence of nausea not specified, unspecified vomiting type- Primary Diarrhea, unspecified type documented in this encounter Care Teams Community Assistant Relationship Specialty Start Date End Date Natalia Perez PA-C [email or web address] PCP - General 07/24/18 Shirley Oliveros RN [address] [place] [phone] [email or web address] PCP - General Internal Medicine 01/28/20 documented as of this encounter Additional Source Comments The information contained in this document represents components of the legal health record. It is not the complete legal health record.[facility]
--- OUTSIDE RECORDS SUMMARY | 2025-07-21 02:22 | XMS_ITS | Encounter Summary ---
Author Organization [employer] Address [address] [place] [address] 7t [place] [address] Care Team Providers Care Insurance Sales Associate Name Role Phone Enedelia Joe MD Primary Care Pro vider Encounter Details Date Type Department Care Team (Latest Contact Info) Description 07/20/2025 Travel Social History Tobacco Use Types Packs/Day [...] is your housing situation today? I have barboriana landry 02/07/[address] you [...] Description 08/20/2025 8:45 AM EST Office Visit [facility] CHC ADULT DENTAL [address] [place] [address] Amina Osborne 08/28/2025 10:45 AM EST Office Visit [facility] MEDICINE [address] [place], [place] [phone] Enedelia Joe MD [address] [place] [address] documented as of this encounter Visit Diagnoses Not on filedocumented in this encounter Additional Health Concerns Assessment Noted Time PHQ-9 Depression Total Score: 0 12/26/19 25 1:46 PM EDT documented as of this encounter Care Teams Insurance Sales Associate Relationship Specialty Start Date End Date Enedelia Joe MD [address] [place] [phone] PCP - General Internal Medicine 03/28/23 documented as of this encounter
--- OUTSIDE RECORDS SUMMARY | 2025-07-21 02:22 | XMS_ITS | Encounter Summary ---
Author Organization [employer] [facility] Address [address] [place] [address] 7 [place] [address] Care Team Providers Care Master Ocean Name Role Phone Jaz Sams Primary Care Provider Enedelia Denson MD Primary Care Pro vider Encounter Details Date Type Department Care Team (Latest Contact Info) Description 03/31/2022 Abstract [facility] CONVERSIONS Dental, Provider, DDS Social History [...] Description 08/20/2025 8:45 AM EST Office Visit [facility] CHC ADULT DENTAL [address] [place] [address] Amina Osborne 08/28/2025 10:45 AM EST Office Visit [facility] MEDICINE [address] [place], [place] [phone] Enedelia Joe MD [address] [place], [place] [phone] documented as of this encounter Visit Diagnoses Not on filedocumented in this encounter Care Teams Master Ocean Relationship Specialty Start Date End Date Jaz Sams FNP PCP - General Family Medicine 04/10/22 03/27/23 Enedelia Joe MD [address] [place] [phone] PCP - General Internal Medicine 03/28/23 documented as of this encounter
--- OUTSIDE RECORDS SUMMARY | 2025-07-21 02:23 | XMS_ITS | Clinical Summary ---
Author Organization [employer] Address [address] [place] [address] [address] [place] [address] Care Team Providers Care Blunger Loader Name Role Phone Enedelia Joe MD Primary Care Pro vider Allergies No known active allergies Medications * This document contains information received from the source organization and may not represent a complete record from that organization. ibuprofen (IBU) 800 MG tablet 1 tablet every 8 hours with food for 7 days monthly for cramping 84 tablet 5 Active ferrous gluconate (Fergon) 324 (38 Fe) MG tabletIndicatio ns:Iron deficiency Take 1 tablet (324 mg) by mouth every other day. 45 tablet 2 5 Active fluconazole (Diflucan) 150 MG tabletIndicatio ns:Yeast infection,Vagin al itching,Vaginal discharge Take 1 tablet (150 mg) by mouth Once per day for 1 dose. 1 tablet 5 06/28/20 25 metroNIDAZOLE (Flagyl) 500 MG tabletIndicatio ns:Yeast infection,Vagin al itching,Vaginal discharge Take 1 tablet (500 mg) by mouth 2 times daily for 7 days. 14 tablet 5 07/04/20 25 terconazole (Terazol 7) 0.4 % vaginal creamIndication s:Yeast infection,Vagin al itching,Vaginal discharge Insert 1 applicator into the vagina at bedtime for 7 days. 45 g 5 07/04/20 25 Active Problems Problem Noted Date Diagnosed Date [...] vaginal douches Schedule a fu appt with RESEARCH GENETICIST Assessment & Plan (01/01/2024 2:43 PM EDT): BV panel ordered today Patient will be contacted with results Dental plaque 03/27/2023 Depression, unspecified 12/19/2022 Overview (02/15/2023): PHQ9 score was 17 on 12/19/22. Met with team same day. Called [facility] phone number. Spoke with therapist a few times. Mood is improved. Still would like referral to therapist outpatient. Assessment & Plan (03/28/2023 10:27 AM EDT): Confirmed referral process 02/15/23 to [place] [facility] Gave pt phone number, she [...] 12/19/22. Met with team same day. Called [facility] phone number. Spoke with therapist a few times. Mood is improved. Still would like referral to therapist outpatient. Assessment & Plan (03/28/2023 10:27 AM EDT): Confirmed referral process 02/15/23 to [place] [facility] Gave pt phone number, she [...] Encounters Date Type Department Care Team Description 07/20/2025 1:20 PM EST Office Visit [facility] [address] [phone] Christine Pearl ANP Vaginal discharge (Primary Dx); Dysmenorrhea 07/20/2025 Travel 07/07/2025 Telephone [facility] [address] [place], [place] [phone] Amina Osborne cancellation list/speak to management 06/29/2025 Results Follow-Up [facility] [address] [place], [place] [phone] Fiordaliza Holt MD Chlamydia/N. Gonorrhoeae RNA, TMA, Vaginal, Bacterial Vaginosis Panel 06/27/2025 9:40 AM EST Office Visit [facility] [address] [address] Fiordaliza Holt MD Vaginal itching (Primary Dx); Yeast infection; Vaginal discharge 06/27/2025 Travel from Last 3 Months Immunizations Immunization Administration Dates Next Due DTaP 08/12/2002, 9,1997,11/04,1997 [...] Moderna Covid-19 Vaccine 12+ 01/12/2021,12/16/19 21 Novel [id number], preservative-free 07/23/2009 Pneumococcal Conjugate PCV 7 04/11/2000 [...] Q2 Not on file 04/14/2024 Comments No Intention Date Recorded No desire to become (finding) 0 01/08/2025 Sex and Gender Information Value Date Recorded [...] Mass Index 24.89 07/20/2025 1:03 PM EST Plan of Treatment Upcoming Encounters Date Type Department Care Team (Late st Contact Info) Description 08/20/2025 8:45 AM EST Office Visit [facility] [address] [place], [place] [phone] Amina Osborne 08/28/2025 10:45 AM EST Office Visit [facility] [address] [place], [place] [phone] Enedelia Joe MD [address] [place], [place] [phone] Health Maintenance Due Date Last Done Comments Hepatitis A Vaccines (1 of 2 - Risk 2-dose series) 2016 Dental X-Ray: Full Mouth 07/23/2024 07/22/2021 Dental Oral Exam 12/25/2024 06/26/2024, 04/2024, 03/27/2023, Additional history exists Dental Prophylaxis 12/25/2024 06/26/2024, 0 09/21/2023, 03/27/2023, Additional history exists COVID-19 Vaccine ( season) 2025 01/12/2021, 12/15/2020 Influenza Vaccine (#1) 2025 4, 09/01/2021, 07/28/2019, Additional history exists Dental X-Ray: Bitewings 06/27/2025 06/26/20 24, 03/27/2023, 03/31/2022, Additional history exists SDOH Screening 12/19/2025 12/19/2024 Alcohol/Substance Use Screening 12/25/2025 12/25/2024 Depression Screening 12/25/2025 12/25/2024, 12/26/19 Disability Screening 12/25/2025 12/25/2024 Family Planning (PISQ) 01/08/2026 01/08/2025 Tobacco Screening 07/20/2026 07/20/2025 Pap Smear 11/04/2026 11/05/2023, 04/0 12/2020, 11/12/2020 [...] Years) and At-Risk Patients (6 to 49) Years Aged Out 04/11/2000 No longer eligible based on patient's age to complete this topic IPV Vaccines Completed 08/12/2002, 10/13, 07/19/1998, Additional history exists HPV Vaccines Completed 07/29/2009, 03/13, 01/22/2009 Meningococcal Vaccine Completed 09/04/2014, 009 Meningococcal B Vaccine Completed 07/28/2019, 06/29 HIV Screening Completed 11/20/2024, 03/13, 06/19/2023, Additional history exists Hepatitis C Screening Completed 11/20/2024 , 03/26/2024, 04/10/2023, Additional history exists RSV under 20 months Aged Out No longe r eligible based on patient's age to complete this topic Rotavirus Vaccines Aged Out No longer eligible based on patient's age to complete this topic Procedures Procedure Name Priority Date/Time Associated Diagnosis Comments CHLAMYDIA/N. GONORRHOEAE RNA, TMA, UROGENITAL Routine 07/20/2025 1:16 PM EST Vaginal discharge BACTERIAL VAGINOSIS PANEL Routine 07/20/2025 1:16 PM EST Vaginal discharge BACTERIAL VAGINOSIS PANEL Routine 06/27/2025 9:53 AM EST Yeast infection CHLAMYDIA/N. GONORRHOEAE RNA, TMA, UROGENITAL Routine 06/27/2025 9:53 AM EST Yeast infection HEPATITIS C AB W/REFL TO HCV RNA, QN, PCR Routine 11/20/2024 2:44 PM EDT Vaginal discharge HIV 1/2 ANTIGEN/ANTIBODY, FOURTH GENERATION W/RFL Routine 11/20/2024 2:44 PM EDT Vaginal discharge PROPHYLAXIS - ADULT Routine 06/26/2024 9 :00 [...] Recently Relevant to Health Maintenance Results * (ABNORMAL) Bacterial Vaginosis Panel (07/20/2025 1:16 PM EST) Only the most recent of2 resultswithin the time period is included. TRICHOMONAS VAGINALIS DETECTION BY PCR NOT DETECTED Not Detect [facility] BACTERIAL VAGINOSIS DETECTION BY PCR POSITIVE(A) Negative [facility] Comment:The BV organism targ ets [...] GROUP DETECTION BY PCR DETECTED(A) Not Detect [facility] Alee glab krusei PCR NOT DETECTED Not Detect [facility] Swab Vaginal structure / Unknown 07/20/2025 1:16 PM EST 07/20/2025 5:08 PM EST Christine Pearl [facility] MICROBIOLOGY - GENERAL ORDER ROBERTO Final Result [facility] [address] [place] [phone] * Chlamydia/N. Gonorrhoeae RNA, TMA, Vaginal (07/20/2025 1:16 PM EST) Only the most recent of2 resultswithin the time period is included. CT PCR NOT DETECTED Not Detect. [facility] Comment:A not detected test result [...] psychologicalconsequences. NG PCR NOT DETECTED Not Detect. [facility] Comment:A not detected test result [...] EST 07/20/2025 5:08 PM EST us Christine [facility] MICROBIOLOGY - GENERAL ORDER ROBERTO Final Result Performing Organization Address City/[facility]/ZIP Co de Phone Number [facility] [address] [place] [phone] * Hepatitis C Antibody with Reflex to HCV, RNA, Quantitative, Real-Time PCR (11/20/2024 2:44 PM EDT) Hepatitis C Antibody Nonreactive Nonreactive [facility] Comment:Antibodies to HCV no t detected; does not exclude early acuteHCV infection. Blood Venous blood specimen / Unknown 11/20/2024 2:44 PM EDT 11/20/2024 3:59 PM EDT us Enedelia Chahal MD LAB BLOOD ORDERAB LES Final Result Performing Organization Address [facility]/ZIP Co de Phone Number [facility] [address] [place] [phone] * HIV-1/2 Antigen and Antibodies, Fourth Generation, with Reflexes (11/20/2024 2:44 PM EDT) HIV AB/AG Nonreactive Nonreactive [facility] Comment:HIV-1 p24 Ag and/or HIV-1/HIV-2 Ab not detected.A test result that is nonreactive does not exclude thepossibility of exposure to or infection with HIV-1 and/orHIV-2. Nonreactive results in this assay for individualswith prior exposure to HIV-1 and/or HIV-2 may be due toantigen and antibody levels that are below the limit ofdetection of this assay.[employer] HIV Ag/Ab Combo assay result andsupplemental assay results should be interpreted inconjunction with the patient's clinical presentation,history and other laboratory results. If the results areinconsistent with clinical evidence, additional testing issuggested to confirm the result. Blood Venous blood specimen / Unknown 11/20/2024 2:44 PM EDT 11/20/2024 3:59 PM EDT us Enedelia Chahal MD LAB BLOOD ORDERAB LES Final Result [facility] [address] [place] [phone] * Pap Smear (11/05/2023 10:05 AM EDT) Swab Cervix uteri structure / Unknown 11/05/2023 10:05 AM EDT 11/06/2023 11:50 AM EDT Narrative [facility] - 11/18/2023 5:50 PM EDT ----- ------- Name: Jordyn Lara Age/Sex: 28/F : 1995 Unit#: [id number] Attend Dr: LUCIAN HEDRICK CNM Re11/05/23 Status: DEP REF Location: [facility] Disch: ----- ------- SPEC : [id number] RECD: 11/06/23-115 STATUS: СЕРГЕЙ ALVAREZ NUM: [id number] SARAH BETH: 11/05/23-[address]: LUCIAN HEDRICK CNM ENTERED: 11/06/23-1314 SP TYPE: Pap Smr OT : ORDERED: Pap Smear Interpretation Satisfactory for evaluation. Negative for intraepithelial lesion or malignancy. Clinical Information LMP: Unknown date Previous PAP test: Unknown date/findings Material Received ThinPrep-Vaginal/Cervical ----- ------- Signed (signature on file) Clementine Rose Waldo 11/18/23 3650 ----- ------- END OF REPORT Lucian FRANK LAB CYTOLOGY ORDERABLES F inal Result [facility] [address] [place] [phone] from Last 3 Months or Most Recently Relevant to Health Maintenance Insurance [employer] [facility] ACCESS D[facility]AL - HSN PARTIAL (MEDICAID) [address] [place], [place] Care Teams Blunger Loader Relationship Specialty Start Date End Date Enedelia Joe MD [address] [place] [phone] PCP - General Internal Medicine 03/28/23
--- OUTSIDE RECORDS SUMMARY | 2025-07-21 02:23 | XMS_ITS | Encounter Summary ---
Author Organization [employer] Address [address] [place] [address] [address] [place] [address] Care Team Providers Care Philosophy Specialist Name Role Phone Enedelia Joe MD Primary Care Pro vider Reason for Visit * Reason Onset Date Comments Nurse Triage 02/05/2024 Encounter Details Date Type Department Care Team ([facility] st Contact Info) Description 02/05/2024 Telephone [facility] [address] [place], [place] [phone] Enedelia Joe MD [address] [place] [phone] Nurse Triage Social History Tobacco Use Types [...] AM EDT documented as of this encounter Functional Status * Over the past 2 weeks, how often have you been bothered by any of the following problems? Question Answer Date of Assessment Author Patient Health Questionnaire -2 Score 0 02/07/2024 10:26 AM EDT Justyna Kinney MA * Over the last 2 weeks, how often have you been bothered by any of the following problems? Question Answer Date of Assessment Author Feeling nervous, anxious, or on edge 0 02/07/2024 10:28 AM EDT Justyna Kinney MA Not being able to stop or co ntrol worrying 0 02/07/2024 10:28 AM CHELSIT Justyna Kinney MA Worrying too much about diff erent things 0 02/07/2024 10:28 AM CHELSIT Justyna Kinney MA Trouble relaxing 0 02/07/2024 10:28 AM CHELSIT Justyna Kinney MA Being so restless that it is hard to sit still 0 02/07/2024 10:28 AM CHELSIT Justyna Kinney MA Becoming easily annoyed or irritable 0 02/07/2024 10:28 AM CHELSIT Justyna Kinney MA Feeling afraid as if somethi ng awful might happen 0 02/07/2024 10:28 AM CHELSIT Justyna Kinney MA MONALISA-7 Total Score 0 02/07/2024 10:28 AM Justyna Oneill MA * Over the past 2 weeks, how often have you been bothered by any of the following problems? Question Answer Date of Assessment Author Little interest or pleasure in doing things Not at all 02/07/2024 10:26 AM Jennifer Oneill MA Feeling down, depressed, or hopeless Not at all 02/07/2024 10:26 AM Justyna Oneill [place] Trouble falling or staying asleep, or sleeping too much Not at all 02/07/2024 10:26 AM Justyna Oneill MA Feeling tired or having little energy Not at all 02/07/2024 10:26 AM Justyna Oneill [place] Poor appetite or overeating Nearly every day 02/07/2024 10:26 AM uJstyna Oneill MA Feeling bad about yourself - or that you are a failure or have let yourself or your family down Not at all 02/07/2024 10:26 AM Justyna Oneill [place] Trouble concentrating on things, such as reading the newspaper or watching television Not at all 02/07/2024 10:26 AM Justyna Oneill MA Moving or speaking so slowly that other people could have noticed? Or the opposite - being so fidgety or restless that you have been moving around a lot more than usual. Not at all 02/07/2024 10:26 AM Justyna Oneill MA Thoughts that you would be better off or hurting yourself in some way Not at all 02/07/2024 10:26 AM Naida Oneill MA Patient Health Questionnaire-9 Score 3 02/07/2024 10:26 AM Daniella Oneill MA documented as of this encounter Miscellaneous Notes * Telephone Encounter - Shirley Butts RN - 02/05/2024 11:08 AM EDT Triage call Pt reports vaginal symptoms which began in November, Pt has been seen in [facility] 12/11/23, 12/13/23, 01/01/24, 01/22/24, all [...] to do this. Pt requests to see [employer], apt requested for 02/07/24. Apt with DENISSE [...] Description 08/20/2025 8:45 AM EST Office Visit [facility] [address] [place], [place] [phone] Amina Osborne 08/28/2025 10:45 AM EST Office Visit [facility] [address] [place], [place] [phone] Enedelia Joe MD [address] [place] [phone] documented as of this encounter Visit Diagnoses Not on filedocumented in this encounter Additional Health Concerns Assessment Noted Time PHQ-9 Depression Total Score: 5 02/16/20 10:42 AM EDT documented as of this encounter Care Teams Philosophy Specialist Relationship Specialty Start Date End Date Enedelia Joe MD [address] [place], [place] [phone] PCP - General Internal Medicine 03/28/23 documented as of this encounter
--- OUTSIDE RECORDS SUMMARY | 2025-07-21 02:23 | XMS_ITS | Data Portability ---
Author Organization [place] - [facility], [address] Address [address] [place] [address] Assessment No assessment recorded. Plan of Treatment Reminders Order Date Submit Date Provider Last Modified By Organization Details Last Modified Time Details Appointments None recorded. Lab test, urine 2022 023 gaurangAlyson 2099_jose teixeira, [address] [place] [address], [id number], 3 19:16:37 urinalysis, dipstick 2022 023 [facility] 2099jose [facility], [address] [place] [address], [phone], 3 19:16:37 vaginal pathogens panel, DOMINGA+probe, vaginal fluid 2022 023 [place] [facility], [address] [place] [address], [place], [address], 3 20:06:08 Referral None recorded. Procedures None recorded. Surgeries None recorded. Imaging None recorded. Medication Orders fluconazole 150 mg tablet 2022 023 [place] [id number], [address] [facility] [place], [address], 3 19:16:39 Patient TargetsNo targets recorded. Patient Instructions Encounter Date Encounter Id Patient Instructions Last Modified By Organization Details Last Modified Time 08/27/2022 [id number] -Reviewed the various causes of vaginal problems. [...] Flag Note LastModifiedBy Organization Detail LastModifiedTime 08/27/1908/29/2022 NUA B VAGIN ITIS PLUS (VG+) atopobium vaginae HIGH - 2 score abnormal Not Available [facility] ([facility]) [address] [place], [address], 08/30/2022 06:07:40 08/27/19 23 08/29/2022 [facility] bvab 2 HIGH - 2 score abnormal Not Available [facility] ([facility]) [address] [place], [address], 08/30/2022 06:07:40 08/27/1908/29/2022 [facility] B VAGIN ITIS PLUS (VG+) megasphaera 1 [...] Drug Admin istra tion. Not Available [facility] ([facility]) [address] [facility], [place], [address], 08/30/2022 06:07:40 08/27/19 23 08/29/2022 NUSWA B VAGIN ITIS PLUS (VG+) dima albicans, DOMINGA NEGATI VE negati ve Not Available [facility] ([facility]) [address] [facility], [place], [address], 08/30/2022 06:07:40 08/27/1908/29/2022 NUSWA B VAGIN ITIS PLUS (VG+) dima glabrata, DOMINGA NEGATI VE negati ve Not Available [facility] ([facility]) [address] [facility], [place], [address], 08/30/2022 06:07:40 08/27/1908/30/2022 NUA B VAGIN ITIS PLUS (VG+) trich vag by DOMINGA NEGATI VE negati ve Not Available [facility] ([facility]) [address] [facility], [place], [address], 08/30/2022 06:07:40 08/27/1908/30/2022 NUSWA B VAGIN ITIS PLUS (VG+) chlamydia trachomatis, DOMINGA NEGATI VE negati ve Not Available [facility] ([facility]) [address] [facility], [place], [address], 08/30/2022 06:07:40 08/27/1908/30/2022 NUA B VAGIN ITIS PLUS (VG+) neisseria gonorrhoeae, DOMINGA NEGATI VE negati ve Not Available [facility] ([facility]) [address] [facility], [place], [address], 08/30/2022 06:07:40 08/27/1908/27/2022 urina lysis , dipst ick Unknown Analyte Normal = light yellow Not Available [address], [place], [address], 08/27/2022 18:32:00 08/27/1908/27/2022 urina lysis , dipst ick Unknown Analyte Yellow Not Available [facility] [address], [place], [address], 08/27/2022 18:32:00 08/27/19 23 08/27/2022 urina lysis , dipst ick Unknown Analyte Normal = clear Not Available jyotsna galarza [address], [place], [address], 08/27/2022 18:32:00 08/27/19 23 08/27/2022 urina lysis , dipst ick Unknown Analyte Slight ly Cloudy Not Available jyotsna galarza [address], [place], [address], 08/27/2022 18:32:00 08/27/19 23 08/27/2022 urina lysis , dipst ick Unknown Analyte Normal = negati ve Not Available jyotsna galarza [address], [place], [address], 08/27/2022 18:32:00 08/27/19 23 08/27/2022 urina lysis , dipst ick Unknown Analyte Negati ve Not Available jyotsna galarza [address], [place], [address], 08/27/2022 18:32:00 08/27/19 23 08/27/2022 urina lysis , dipst ick Unknown Analyte Normal = Negati ve Not Available jyotsna galarza [address], [place], [address], 08/27/2022 18:32:00 08/27/19 23 08/27/2022 urina lysis , dipst ick Unknown Analyte Negati ve Not Available jyotsna galarza [address], [place], [address], 08/27/2022 18:32:00 08/27/1908/27/2022 urina lysis , dipst ick Unknown Analyte Normal = Negati ve Not Available jyotsna galarza [address], [place], [address], 08/27/2022 18:32:00 08/27/19 23 08/27/2022 urina lysis , dipst ick Unknown Analyte Negati ve Not Available jyotsna galarza [address], [place], [address], 08/27/2022 18:32:00 08/27/19 23 08/27/2022 urina lysis , dipst ick Unknown Analyte Normal = 1.010, 1.015, 1.020 Not Available jyotsna galarza [address], [place], [address], 08/27/2022 18:32:00 08/27/1908/27/2022 urina lysis , dipst ick Unknown Analyte 1.015 Not Available [facility] [address], [place], [address], 08/27/2022 18:32:00 08/27/19 23 08/27/2022 urina lysis , dipst ick Unknown Analyte Normal = Negati ve Not Available jyotsna galarza [address], [place], [address], 08/27/2022 18:32:00 08/27/19 23 08/27/2022 urina lysis , dipst ick Unknown Analyte Negati ve Not Available jyotsna galarza [address], [place], [address], 08/27/2022 18:32:00 08/27/19 23 08/27/2022 urina lysis , dipst ick Unknown Analyte Normal = 6.5, 7.0, 7.5, 8.0 Not Available jyotsna galarza [address], [place], [address], 08/27/2022 18:32:00 08/27/19 23 08/27/2022 urina lysis , dipst ick Unknown Analyte 7.0 Not Available [address], [place], [address], 08/27/2022 18:32:00 08/27/19 23 08/27/2022 urina lysis , dipst ick Unknown Analyte Normal = Negati ve Not Available [facility] [address], [place], [address], 08/27/2022 18:32:00 08/27/19 23 08/27/2022 urina lysis , dipst ick Unknown Analyte Negati ve Not Available jyotsna galarza [address], [place], [address], 08/27/2022 18:32:00 08/27/19 23 08/27/2022 urina lysis , dipst ick Unknown Analyte Normal = 0.2, 1.0 Not Available jyotsna galarza [address], [place], [address], 08/27/2022 18:32:00 08/27/19 23 08/27/2022 urina lysis , dipst ick Unknown Analyte 0.2 E.U./d L Not Available jyotsna galarza [address], [place], [address], 08/27/2022 18:32:00 08/27/19 23 08/27/2022 urina lysis , dipst ick Unknown Analyte Normal = Negati ve Not Available jyotsna galarza [address], [place], [address], 08/27/2022 18:32:00 08/27/19 23 08/27/2022 urina lysis , dipst ick Unknown Analyte Negati ve Not Available [address] [place] [address], [place], [address], 08/27/2022 18:32:00 08/27/19 23 08/27/2022 urina lysis , dipst ick Unknown Analyte Normal = Negati ve Not Available jyotsna galarza [address], [place], [address], 08/27/2022 18:32:00 08/27/19 23 08/27/2022 urina lysis , dipst ick Unknown Analyte Negati ve Not Available [address] [place] [address], [place], [address], 08/27/2022 18:32:00 08/27/19 23 08/27/2022 pregn thee test, urine Unknown Analyte Normal = Negati ve Not Available 2099jyotsna [address], [place], [address], 08/27/2022 18:31:52 08/27/19 23 08/27/2022 pregn thee test, urine Unknown Analyte negati ve Not Available [address] [place] [address], [place], [address], 08/27/2022 18:31:52 Result Notes None recorded. Problems Name Problem SNOMED Code Status Onset Date Resolution Date Notes Provider Name and Address Organization Details Recorded Time Bacterial vaginosis 073680520 Active 023 RIK Cesar [facility] 18:33:35 Candidal otitis externa 04056673 Active 023 RIK Cesar [facility] 3 18:33:45 Anxiety 70578670 Active 023 LAVON CRENSHAWSAJI bartlett [place] [facility] 3 18:35:00 Problem Notes None recorded. [...] weight Respiratory rate Heart rate Oxygen saturation Pain severity - 0-10 verbal numeric rating [Score] - Reported Body temperature Systolic And Diastolic Provider Name and Address Organization Details Last Updated DateTime 3 162.56 cm 24 kg/m2 76816.9 3 g 19 /min 75 /min 99 % 0 98.6 [degF] 122/77 mm[Hg] LAVON CAICEDO [place] - [facility] 3 18:38:46 Social History Question Answer Notes LastModified by Quemulus Details LastModified Time Tobacco Smoking Status Never Smoker LAVON SASCHA bartlett MD - [facility] 08/27/2022 18:34:48 Which Illicit Or Recreational Drugs Have You Used? Marijuana Daily Information not available 08/27/2022 Sex: Unknown Functional Status Question Answer Note LastModified by Quemulus Details LastModified Time How many times per week do you consume alcohol? <1 time per week Information not available 08/27/2022 Do you use any illicit or recreational drugs? Yes Information not available 08/27/2022 What is your level of alcohol consumption? Occasional Information not available 08/27/2022 Mental Status None recorded. Family History Relationship [...] Diagnosis SNOMED-CT Code Diagnosis ICD10 Code Diagnosis IMO Codes Diagnosis Note [id number] [place] [address] [address] 08/27/2022 18:10:38 08/27/2022 19:17:30 Acute vaginitis 66729344 N76.0 Health Concerns Section Related Observation LastModified by Organization Detai ls LastModified Time None Recorded Concern Status LastModified by Organization Details LastModified Time None Recorded Advance Directives Directive None Recorded Payers Insurance Date Sequence Insurance Name Policy Number Policy Cheng Covered Member ID Cheng Member ID Guarantor Name 08/27/2022 1 [place]: [employer] Jordyn R Badone [id number] Jordyn Badone Notes Date Note Type Note Provider Name and Address Organization Details Recorded Time 08/27/2022 text/html vaginal discharge after unprotected sexual encounter . denies multiple partners. HX of developing yeast infection. Jose Antonio Wiggins NP [address] [place], [address], [place] - [facility] 08/27/2022 19:18:04 OBGyn Episode No OBEpisode recorded.
--- OUTSIDE RECORDS SUMMARY | 2025-07-21 02:23 | XMS_ITS | Clinical Summary ---
Author Organization [facility] Address [address] [facility] [address] [place] [phone] Phone Care Team Providers Care Animal Care Assistant Name Role Phone Shirley Oliveros RNlogging supervisor Provider [phone] Allergies No known active allergies Medications polyethylene glycol (MIRALAX) 17 gram/dose powder Take 17 g by mouth every 6 (six) hours as needed. 09/11/2016 Active norethindrone (MICRONOR) 0.35 mg tablet Take 1 tablet (0.35 mg total) by mouth daily. 1 packet 11 03/09/2020 Active Active Problems Problem Noted Date Diagnosed Date Encounter for contraceptive management 0 Assessment & Plan (03/10/2020 1:39 PM EDT): 4th attempt (first one by us) to insert IUD not successful, does not want to try with u/s guidance Unable to take combined OCP due to migraine with aura; can use P only OCP or DEpo P or implant Migraine 12/15/2016 Intractable menstrual migraine Resolved Problems Problem Noted Date Diagnosed Date Resolved Date Dehydration 12/15/2016 01/29/2020 Family History Medical History Relation Comments Drug abuse Father Lung cancer Maternal Great-Grandfather smoke r Breast cancer Maternal Great-Grandmother Anxiety disorder Mother Hypertension Mother Relation Status Comments Father Maternal Great-Grandfather Maternal Great-Grandmother Mother Social History Tobacco Use Types Packs/Day Years Used Date Smoking Tobacco: Never Smokeless Tobacco: Never Alcohol Use Standard Drinks/Week Comments Not Currently 0 (1 standard drink = 0.6 oz pur e alcohol) Education Answer Date Recorded Are you interested in more education? Not on oneal e 12/08/2022 Are you concerned about learning? Not on file 12/08/2022 No 12/08/2022 No 12/08/2022 Digital Access Answer Date Recorded No 01/08/2023 No 01/08/2023 No 01/08/2023 Reliable internet access at home? Not on file 01/08/2023 Device with a working camera? Not on file Comments No Sex and Gender Information Value Date Recorded Sex Assigned at Female 08/13/2018 9:20 PM EST Legal Sex Female 2:22 PM EDT Gender Identity Female 08/13/2018 9:20 PM EST Sexual Orientation Not on file Last Filed Vital Signs Vital Sign Reading Time Taken Comments Blood Pressure 104/60 03/09/2020 3:08 PM EDT Pulse 83 03/09/2020 3:08 PM EDT Temperature 36.7 C (98 F) 03/09/2020 3:08 PM EDT Respiratory Rate 18 08/13/2018 11:27 PM EST Oxygen Saturation 99% 03/09/2020 3:08 PM EDT Inhaled Oxygen Concentration - - Weight 58.2 kg (128 lb 6.4 oz) 03/09/2020 3:08 P M EDT Height 162.6 cm (5' 4 ) 08/13/2018 9:19 PM EST Body Mass Index 22.04 08/13/2018 9:19 PM EST Plan of Treatment Health Maintenance Due Date Last Done Comments HEPATITIS C SCREENING 2015 HIV ONE-TIME SCREENING (18-65 YEARS) 2015 DEPRESSION SCREENING 01/28/2021 01/29/2020 SMOKING STATUS SCREENING (Once After 26 Yrs) 2023 PAP SMEAR 11/13/2023 11/12/2020 INFLUENZA VACCINE (#1) 2025 9, 04/15/2016, 08/31/2015, Additional history exists COVID-19 VACCINE (2024- season) 2025 12/15/2020 Adult Td,Tdap Booster 07/28/2029 07/28/2019, 009 HIB VACCINES Completed 11/09/1998, 10/13, 07/19/1998, Additional history exists PNEUMOCOCCAL VACCINES (0-49 years) Aged Out 04/11/2000 No longer eligible based on patient's age to complete this topic MENINGOCOCCAL VACCINES (ACWY) Completed 09/04/2014, 03/26/2009 MENINGOCOCCAL VACCINES (B) Completed 07/28/2019, HEPATITIS A VACCINES Aged Out No long er eligible based on patient's age to complete this topic Medical Devices Not on file Insurance [employer] PARTIAL [employer] PARTIAL HEALTH SAFETY NET PARTIAL HEALTH SAFETY NET PARTIAL HEALTH SAFETY NET PARTIAL HEALTH SAFETY NET PARTIAL HEALTH SAFETY NET PARTIAL HEALTH SAFETY NET PARTIAL HEALTH SAFETY NET PARTIAL Care Teams Animal Care Assistant Relationship Specialty Start Date End Date Shirley Oliveros RN [address] [place] [phone] PCP - General Internal Medicine 01/28/20 Additional Source Comments The information contained in this document represents components of the legal health record. It is not the complete legal health record.[facility]
--- OUTSIDE RECORDS SUMMARY | 2025-07-21 02:23 | XMS_ITS | Clinical Summary ---
Author Organization [facility] Prior to 06/13/2024 Address [address] [place] [address] Care Team Providers Care Sawmill Production Worker Name Role Phone Community, Pcp Primary Care [...] Influenza H1N1 Pandemic Flu Vaccine 07/23/2009 MMR (Qnueizo-Pjkjl-Bqacqfd) 06/26/2001, 9 Meningococcal (Menactra) 09/04/2014,03/26/2009 Pneumococcal(Pedi) Conjugate [...] Other 1 Other 2 [facility] 1999 Social History Tobacco Use Types Packs/Day Years [...] 72 09/11/2016 9:04 AM EST Temperature 36.8 C (98.2 F) 09/11/2016 9:04 AM EST Respiratory Rate 12 10/14/2015 3:00 PM EST Oxygen Saturation - - Inhaled [...] SCREENING/FOLLOWUP 08/13/2024 SOCIAL NEEDS SCREENING 08/13/2024 INFLUENZA (#1) 2025 04/27/2016, 08/13, 05/11/2014, Additional history exists PNEUMOCOCCAL VACCINE FOR HIG H RISK PATIENTS (#1) 2062 Care Teams Sawmill Production Worker Relationship Specialty Start Date End Date Community, Pcp PCP - General Internal Medicine 02/11/18
--- OUTSIDE RECORDS SUMMARY | 2025-07-21 02:23 | XMS_ITS | Encounter Summary ---
Author Organization [employer] Address [address] [place] [address] 7 [place] [address] Care Team Providers Care Drafting Detailer Name Role Phone Enedelia Joe MD Primary Care Pro vider Reason for Visit * Reason Onset Date Comments Appointment Request 10/12/2023 Encounter Details Date Type Department Care Team ([facility] Contact Info) Description 10/12/[address] [facility] MEDICINE [address], [place] [phone] Enedelia Joe MD [address] [place] [address] Appointment Request Social History Tobacco Use Types [...] Description 08/20/2025 8:45 AM EST Office Visit [facility] CHC ADULT DENTAL [address] [place] [address] Amina Osborne 08/28/2025 10:45 AM EST Office Visit [facility] MEDICINE [address] [place] [address] Enedelia Joe MD [address] [place] [address] documented as of this encounter Visit Diagnoses Not on filedocumented in this encounter Additional Health Concerns Assessment Noted Time PHQ-9 Depression Total Score: 5 02/16/20 10:42 AM EDT documented as of this encounter Care Teams Drafting Detailer Relationship Specialty Start Date End Date Enedelia Joe MD [address] [place] [address] PCP - General Internal Medicine 03/28/23 documented as of this encounter
--- OUTSIDE RECORDS SUMMARY | 2025-07-21 02:23 | XMS_ITS | Encounter Summary ---
Author Organization [facility] Address [address] [facility] 7[address] [place] [address] Care Team Providers Care Sales And Service Associate Name Role Phone Enedelia Joe MD Primary Care Pro vider Reason for Visit * Reason Comments Med Refill Encounter Details Date Type Department Care Team ([facility] st Contact Info) Description 07/25/2024 Refill [facility] WALK-IN CENTER [address] [place] [address] Adrian Camejo MD [address] [place] [address] Skin rash Social History Tobacco Use Types [...] Description 08/20/2025 8:45 AM EST Office Visit [facility] CHC ADULT DENTAL [address] [place] [address] Amina Osborne 08/28/2025 10:45 AM EST Office Visit [facility] MEDICINE [address] [place] [address] Enedelia Joe MD [address] [place] [address] documented as of this encounter Visit Diagnoses Diagnosis Skin rash Rash and other nonspecific skin eruption documented in this encounter Additional Health Concerns Assessment Noted Time PHQ-9 Depression Total Score: 3 02/07/20 24 10:26 AM EDT documented as of this encounter Care Teams Sales And Service Associate Relationship Specialty Start Date End Date Enedelia Joe MD [address] [place] [address] PCP - General Internal Medicine 03/28/23 documented as of this encounter
--- OUTSIDE RECORDS SUMMARY | 2025-07-21 02:23 | XMS_ITS | Encounter Summary ---
Author Organization [employer] Address [address] [place] [address] 7t [place] [address] Care Team Providers Care Knitting Teacher Name Role Phone Jaz Sams Primary Care Provider Enedelia Denson MD Primary Care Pro vider Encounter Details Date Type Department Care Team (Late st Contact Info) Description 03/14/2023 Orders Only [facility] WALK-IN CENTER [address] [place] [phone] Ken Ramires MD [address] [place] [address] Social History Tobacco Use Types Packs/Day Years [...] 08/20/2025 8:45 AM EST Office Visit [facility] CHC ADULT DENTAL [address] [place] [address] Dylon Amina 08/28/2025 10:45 AM EST Office Visit [facility] MEDICINE [address] [place] [address] Enedelia Joe MD [address] [place] [address] documented as of this encounter Visit Diagnoses Not on filedocumented in this encounter Additional Health Concerns Assessment Noted Time PHQ-9 Depression Total Score: 5 02/16/20 23 10:42 AM EDT documented as of this encounter Care Teams Knitting Teacher Relationship Specialty Start Date End Date Jaz Sams FNP PCP - General Family Medicine 04/10/22 03/27/23 Enedelia Joe MD [address] [place] [id number] PCP - General Internal Medicine 03/28/23 documented as of this encounter
== END 2025-07-20 17:09 | disposition home or self-care (01) ==
LOC: HO.HHCLNP 17:08
PROVIDERS: Visit Provider Nurse Practitioner Primary Care
DX: Z20.2 Contact with and (suspected) exposure to infections with a predominantly sexual mode of transmission (principal); N89.8 Other specified noninflammatory disorders of vagina
CPT/HCPCS: 81515; 87491; 87591

== ENCOUNTER 2025-07-28 08:41 | Outpatient (REF) | payer OTHER, SELFPAY ==
[2025-07-29 09:44] LABS: Bacterial Vaginosis PCR POSITIVE (Negative); Candida Group PCR NOT DETECTED (Not Detect); Candida glab krusei PCR NOT DETECTED (Not Detect); Trichomonas vaginalis PCR NOT DETECTED (Not Detect)
== END 2025-07-28 08:42 | disposition home or self-care (01) ==
LOC: HO.HHCLNP 08:41
PROVIDERS: Visit Provider Family Medicine
DX: N89.8 Other specified noninflammatory disorders of vagina (principal)
CPT/HCPCS: 81515